=== PATIENT | male | born 1960 | race Caucasian/White ===

== ENCOUNTER 2017-07-11 01:48 | Emergency (ER) | payer OTHER ==
[~2017-07-11] VITALS: Ht 175.3 cm; Wt 93.0 kg
[~2017-07-11 01:48] MED LIST: ALBU90OI6; METCAR500 PO; METO25ER PO; MORPHINE PUMP; OXYC15ER PO; PRAV20 PO; TRAZ150T57 PO; ZESTRIL40 MG PO
[2017-07-11 02:20] LABS: BASOPHILS ABSOLUTE AUTO 0.05 K/mm3 (0.00-0.23); BASOPHILS PERCENT AUTO 1 % (0-2); EOSINOPHILS PERCENT AUTO 3 % (0-6); Hematocrit 43.4 % (37.0-53.0); Hemoglobin 13.7 g/dL (13.5-17.5); IMMATURE GRAN ABSOLUTE AUTO 0.03 K/mm3 (0.00-0.10); IMMATURE GRAN PERCENT AUTO 0 % (0-1); LYMPHOCYTES ABSOLUTE AUTO 1.45 K/mm3 (0.84-5.20); LYMPHOCYTES PERCENT AUTO 19 % (21-46); MONOCYTES ABSOLUTE AUTO 0.49 K/mm3 (0.16-1.47); MONOCYTES PERCENT AUTO 6 % (4-13); Mean Corpuscular HGB 26.9 pg (26.0-34.0); Mean Corpuscular HGB Conc 31.6 g/dL (31.5-36.5); Mean Corpuscular Volume 85 fL (80-100); Mean Platelet Volume 10.3 fL (9.1-12.4); NEUTROPHILS ABSOLUTE AUTO 5.52 K/mm3 (1.96-9.15); NEUTROPHILS PERCENT AUTO 71 % (41-73); Platelet Count 112 K/mm3 (150-400); RDW Coefficient Variation 13.1 % (11.7-14.2); RDW Standard Deviation 41.1 fL (35.1-46.3); White Blood Cell Count 7.74 K/mm3 (4.00-11.30)
[2017-07-11 02:31] LABS: Alanine Aminotransfer (ALT/SGP 15 U/L (12-78); Albumin, Blood 3.2 g/dL (3.4-5.0); Albumin/Globulin Ratio 0.8 (0.8-1.8); Alk Phos 76 U/L (50-136); Anion Gap 5 mmol/L (6-16); Aspartate Aminotrans (AST/SGOT 13 U/L (12-37); Bilirubin, Total 0.4 mg/dL (0.1-1.0); Blood Urea Nitrogen 9 mg/dL (8-24); CO2, Blood 30 mmol/L (21-32); Calcium, Blood 8.4 mg/dL (8.5-10.1); Chloride, Blood 102 mmol/L (98-108); Glomerular Filtration Rate >60 (60-); Glucose, Blood 101 mg/dL (70-99); Potassium, Blood 4.4 mmol/L (3.5-5.5); Sodium, Blood 137 mmol/L (136-145); Total Protein, Blood 7.2 g/dL (6.4-8.2); Troponin I <0.015 ng/mL (0.000-0.040)
[2017-07-11] MEDS ORDERED: AMLO5 PO (02:43)
[2017-07-11] MEDS ORDERED: METO50 PO (02:44)
[2017-07-11] MEDS ORDERED: Carafate1 GM/10 ML PO (03:29)
[2017-07-11] MEDS ORDERED: Protonix40 MG PO (03:29)
== END 2017-07-11 03:42 | disposition home or self-care (01) ==
LOC: ER 01:48
PROVIDERS: Emergency Medicine
DX: K21.9 Gastro-esophageal reflux disease without esophagitis (principal); F17.200 Nicotine dependence, unspecified, uncomplicated; Z88.0 Allergy status to penicillin; Z79.899 Other long term (current) drug therapy
CPT/HCPCS: 36415; 71046; 80053; 83880; 84484; 85025; 93005; 93010; 96374; 99284; J2405

== ENCOUNTER 2017-08-11 21:47 | Emergency (ER) | payer MEDICARE ==
[~2017-08-11] VITALS: Ht 175.3 cm; Wt 102.1 kg
[~2017-08-11 21:47] MED LIST changes: +AMLO5 PO; +Carafate1 GM/10 ML PO; +METO50 PO; +Protonix40 MG PO
[2017-08-11 22:47] LABS: BASOPHILS ABSOLUTE AUTO 0.02 K/mm3 (0.00-0.23); BASOPHILS PERCENT AUTO 0 % (0-2); EOSINOPHILS ABSOLUTE AUTO 0.32 K/mm3 (0.00-0.68); EOSINOPHILS PERCENT AUTO 7 % (0-6); Hematocrit 38.4 % (37.0-53.0); Hemoglobin 11.9 g/dL (13.5-17.5); IMMATURE GRAN ABSOLUTE AUTO 0.01 K/mm3 (0.00-0.10); IMMATURE GRAN PERCENT AUTO 0 % (0-1); LYMPHOCYTES ABSOLUTE AUTO 1.09 K/mm3 (0.84-5.20); LYMPHOCYTES PERCENT AUTO 22 % (21-46); MONOCYTES ABSOLUTE AUTO 0.17 K/mm3 (0.16-1.47); MONOCYTES PERCENT AUTO 4 % (4-13); Mean Corpuscular HGB 25.7 pg (26.0-34.0); Mean Corpuscular Volume 83 fL (80-100); NEUTROPHILS ABSOLUTE AUTO 3.31 K/mm3 (1.96-9.15); NEUTROPHILS PERCENT AUTO 67 % (41-73); Platelet Count 129 K/mm3 (150-400); RDW Coefficient Variation 14.1 % (11.7-14.2); RDW Standard Deviation 41.9 fL (35.1-46.3); Red Blood Cell Count 4.63 M/mm3 (4.30-5.90); White Blood Cell Count 4.92 K/mm3 (4.00-11.30)
[2017-08-11 23:03] LABS: Alanine Aminotransfer (ALT/SGP <6 U/L (12-78); Albumin, Blood 2.8 g/dL (3.4-5.0); Albumin/Globulin Ratio 0.7 (0.8-1.8); Alk Phos 65 U/L (50-136); Anion Gap 5 mmol/L (6-16); Aspartate Aminotrans (AST/SGOT 5 U/L (12-37); Bilirubin, Total 0.8 mg/dL (0.1-1.0); Blood Urea Nitrogen 9 mg/dL (8-24); Bun/Creatinine Ratio 9.3 (12.0-20.0); CO2, Blood 32 mmol/L (21-32); Chloride, Blood 101 mmol/L (98-108); Creatinine, Blood 0.97 mg/dL (0.60-1.20); Globulin, Blood 3.8 g/dL (2.2-4.0); Glomerular Filtration Rate >60 (60-); Glucose, Blood 101 mg/dL (70-99); Potassium, Blood 4.5 mmol/L (3.5-5.5); Sodium, Blood 138 mmol/L (136-145); Total Protein, Blood 6.6 g/dL (6.4-8.2)
[2017-08-11] MEDS ORDERED: METTREX2.5 PO (23:31)
[2017-08-11] MEDS ORDERED: [UNRECOGNIZED DRUG - OTHER] TP (23:31)
[2017-08-12] MEDS ORDERED: Cleocin HCl300 MG PO (02:07)
== END 2017-08-12 02:20 | disposition home or self-care (01) ==
LOC: ER 21:47
PROVIDERS: Emergency Medicine
DX: L40.50 Arthropathic psoriasis, unspecified (principal); L03.116 Cellulitis of left lower limb; L03.115 Cellulitis of right lower limb; Z88.0 Allergy status to penicillin; Z79.899 Other long term (current) drug therapy; Z79.891 Long term (current) use of opiate analgesic; J44.9 Chronic obstructive pulmonary disease, unspecified; F17.200 Nicotine dependence, unspecified, uncomplicated
CPT/HCPCS: 36415; 80053; 83605; 85025; 96365; 96375; 99284; J3010

== ENCOUNTER 2017-08-19 17:45 | Observation (INO) | payer MEDICARE ==
[~2017-08-19] VITALS: Ht 175.3 cm; Wt 96.9 kg
[~2017-08-19 17:45] MED LIST changes: +Cleocin HCl300 MG PO; +METTREX2.5 PO; +[UNRECOGNIZED DRUG - OTHER] TP
[2017-08-19] MEDS ORDERED: Roxicodone15 MG PO (17:59)
[2017-08-19 19:01] LABS: BASOPHILS ABSOLUTE AUTO 0.03 K/mm3 (0.00-0.23); BASOPHILS PERCENT AUTO 1 % (0-2); EOSINOPHILS ABSOLUTE AUTO 0.19 K/mm3 (0.00-0.68); EOSINOPHILS PERCENT AUTO 3 % (0-6); Hematocrit 30.7 % (37.0-53.0); Hemoglobin 9.7 g/dL (13.5-17.5); IMMATURE GRAN ABSOLUTE AUTO 0.02 K/mm3 (0.00-0.10); IMMATURE GRAN PERCENT AUTO 0 % (0-1); LYMPHOCYTES ABSOLUTE AUTO 0.77 K/mm3 (0.84-5.20); LYMPHOCYTES PERCENT AUTO 14 % (21-46); MONOCYTES ABSOLUTE AUTO 0.58 K/mm3 (0.16-1.47); MONOCYTES PERCENT AUTO 10 % (4-13); Mean Corpuscular HGB 25.9 pg (26.0-34.0); Mean Corpuscular HGB Conc 31.6 g/dL (31.5-36.5); Mean Corpuscular Volume 82 fL (80-100); Mean Platelet Volume 10.4 fL (9.1-12.4); NEUTROPHILS ABSOLUTE AUTO 4.07 K/mm3 (1.96-9.15); NEUTROPHILS PERCENT AUTO 72 % (41-73); Platelet Count 169 K/mm3 (150-400); RDW Coefficient Variation 14.9 % (11.7-14.2); RDW Standard Deviation 43.2 fL (35.1-46.3); Red Blood Cell Count 3.75 M/mm3 (4.30-5.90); White Blood Cell Count 5.66 K/mm3 (4.00-11.30)
[2017-08-19 19:21] LABS: Alanine Aminotransfer (ALT/SGP 7 U/L (12-78); Albumin, Blood 2.5 g/dL (3.4-5.0); Albumin/Globulin Ratio 0.6 (0.8-1.8); Alk Phos 74 U/L (50-136); Anion Gap 8 mmol/L (6-16); Aspartate Aminotrans (AST/SGOT 6 U/L (12-37); Bilirubin, Total 1.2 mg/dL (0.1-1.0); Blood Urea Nitrogen 14 mg/dL (8-24); CO2, Blood 26 mmol/L (21-32); Calcium, Blood 8.5 mg/dL (8.5-10.1); Chloride, Blood 102 mmol/L (98-108); Globulin, Blood 3.9 g/dL (2.2-4.0); Glomerular Filtration Rate >60 (60-); Glucose, Blood 107 mg/dL (70-99); Potassium, Blood 4.2 mmol/L (3.5-5.5); Sodium, Blood 136 mmol/L (136-145); Total Protein, Blood 6.4 g/dL (6.4-8.2)
[2017-08-19 20:32] LABS: International Normalized Ratio 1.1; Prothrombin Time Results 11.3 Sec (9.7-11.5)
[2017-08-19 20:47] LABS: CPK Creatine Kinase 30 U/L (39-308)
[2017-08-20 03:38] LABS: Source, Urine Clean Catch
[2017-08-20 03:40] LABS: Blood, Urine Neg (Neg); Glucose Qualitative, Urine Neg (Neg); Ketones, Urine Neg (Neg); Leukocyte Esterase, Urine 1+ (Neg); Nitrite, Urine Neg (Neg); Protein, Urine 1+ (Neg); Urobilinogen, Urine 4+ (Normal)
[2017-08-20 03:46] LABS: Appearance, Urine Clear (Clear); Bilirubin, Urine 1+ (Neg); Color, Urine Amber (P-Yellow)
[2017-08-20 03:47] LABS: Bacteria Not Seen /hpf; Red Blood Cells, Urine Not Seen /hpf (0-2); Squamous Epithelial Cells Few /hpf (Few); White Blood Cells, Urine Rare /hpf (0-5)
[2017-08-20 05:00] LABS: Hematocrit 27.7 % (37.0-53.0); Hemoglobin 8.5 g/dL (13.5-17.5); Mean Corpuscular HGB 24.8 pg (26.0-34.0); Mean Corpuscular HGB Conc 30.7 g/dL (31.5-36.5); Mean Corpuscular Volume 81 fL (80-100); Mean Platelet Volume 10.9 fL (9.1-12.4); Platelet Count 160 K/mm3 (150-400); RDW Standard Deviation 43.1 fL (35.1-46.3); Red Blood Cell Count 3.43 M/mm3 (4.30-5.90); White Blood Cell Count 5.53 K/mm3 (4.00-11.30)
[2017-08-20 05:22] LABS: Alanine Aminotransfer (ALT/SGP <6 U/L (12-78); Albumin, Blood 2.2 g/dL (3.4-5.0); Albumin/Globulin Ratio 0.6 (0.8-1.8); Alk Phos 65 U/L (50-136); Anion Gap 8 mmol/L (6-16); Aspartate Aminotrans (AST/SGOT 5 U/L (12-37); Blood Urea Nitrogen 13 mg/dL (8-24); Bun/Creatinine Ratio 14.4 (12.0-20.0); CO2, Blood 26 mmol/L (21-32); Calcium, Blood 7.8 mg/dL (8.5-10.1); Chloride, Blood 103 mmol/L (98-108); Globulin, Blood 3.4 g/dL (2.2-4.0); Glomerular Filtration Rate >60 (60-); Glucose, Blood 97 mg/dL (70-99); Potassium, Blood 4.4 mmol/L (3.5-5.5); Sodium, Blood 137 mmol/L (136-145); Total Protein, Blood 5.6 g/dL (6.4-8.2)
[2017-08-20 12:45] LABS: U Amphetamine Screen Not Detected; U Barbituate Screen Not Detected; U Benzodiazapine Screen Not Detected; U Buprenorphine Screen Not Detected; U Cannabinoids Screen Not Detected; U Cocaine Screen Not Detected; U Methadone Screen Not Detected; U Methamphetamine Screen Not Detected; U Opiates Screen DETECTED; U Oxycodone Screen DETECTED; U Phencyclidine Screen Not Detected; U Propoxyphene Screen Not Detected
[2017-08-21 20:54] LABS: BASOPHILS ABSOLUTE AUTO 0.02 K/mm3 (0.00-0.23); BASOPHILS PERCENT AUTO 0 % (0-2); EOSINOPHILS ABSOLUTE AUTO 0.22 K/mm3 (0.00-0.68); EOSINOPHILS PERCENT AUTO 4 % (0-6); Hematocrit 25.8 % (37.0-53.0); IMMATURE GRAN ABSOLUTE AUTO 0.03 K/mm3 (0.00-0.10); IMMATURE GRAN PERCENT AUTO 1 % (0-1); LYMPHOCYTES PERCENT AUTO 18 % (21-46); MONOCYTES ABSOLUTE AUTO 0.48 K/mm3 (0.16-1.47); MONOCYTES PERCENT AUTO 10 % (4-13); Mean Corpuscular HGB 25.6 pg (26.0-34.0); Mean Corpuscular Volume 83 fL (80-100); Mean Platelet Volume 10.8 fL (9.1-12.4); NEUTROPHILS ABSOLUTE AUTO 3.32 K/mm3 (1.96-9.15); NEUTROPHILS PERCENT AUTO 67 % (41-73); Platelet Count 167 K/mm3 (150-400); RDW Coefficient Variation 15.3 % (11.7-14.2); RDW Standard Deviation 44.6 fL (35.1-46.3); Red Blood Cell Count 3.12 M/mm3 (4.30-5.90); White Blood Cell Count 4.97 K/mm3 (4.00-11.30)
[2017-08-22 05:32] LABS: BASOPHILS ABSOLUTE AUTO 0.02 K/mm3 (0.00-0.23); BASOPHILS PERCENT AUTO 0 % (0-2); EOSINOPHILS ABSOLUTE AUTO 0.26 K/mm3 (0.00-0.68); EOSINOPHILS PERCENT AUTO 5 % (0-6); Hemoglobin 7.7 g/dL (13.5-17.5); IMMATURE GRAN ABSOLUTE AUTO 0.02 K/mm3 (0.00-0.10); IMMATURE GRAN PERCENT AUTO 0 % (0-1); LYMPHOCYTES ABSOLUTE AUTO 1.07 K/mm3 (0.84-5.20); LYMPHOCYTES PERCENT AUTO 21 % (21-46); MONOCYTES ABSOLUTE AUTO 0.56 K/mm3 (0.16-1.47); MONOCYTES PERCENT AUTO 11 % (4-13); Mean Corpuscular HGB 25.7 pg (26.0-34.0); Mean Corpuscular HGB Conc 30.8 g/dL (31.5-36.5); Mean Corpuscular Volume 83 fL (80-100); Mean Platelet Volume 10.8 fL (9.1-12.4); NEUTROPHILS ABSOLUTE AUTO 3.13 K/mm3 (1.96-9.15); NEUTROPHILS PERCENT AUTO 62 % (41-73); Platelet Count 164 K/mm3 (150-400); RDW Coefficient Variation 15.2 % (11.7-14.2); RDW Standard Deviation 44.9 fL (35.1-46.3); White Blood Cell Count 5.06 K/mm3 (4.00-11.30)
[2017-08-22] MEDS ORDERED: VASELINE WHITE P5 GM TOP (11:26)
[2017-08-23 11:06] LABS: COMPLEMENT C3, SERUM 149 mg/dL (82-167); COMPLEMENT C4, SERUM 28 mg/dL (14-44)
== END 2017-08-22 13:28 | disposition home or self-care (01) ==
LOC: ER 17:45 → MEDS 20:13 → ER 20:13 → MEDS 21:37 → ENPENDDIS 08-22 10:24 → MEDS 08-22 13:28
PROVIDERS: Emergency Medicine; Internal Medicine
DX: I77.6 Arteritis, unspecified (principal); L03.116 Cellulitis of left lower limb; L03.115 Cellulitis of right lower limb; L40.50 Arthropathic psoriasis, unspecified; I10 Essential (primary) hypertension; J44.9 Chronic obstructive pulmonary disease, unspecified; F17.210 Nicotine dependence, cigarettes, uncomplicated; M79.604 Pain in right leg; M79.605 Pain in left leg; Z79.899 Other long term (current) drug therapy; Z88.0 Allergy status to penicillin
CPT/HCPCS: 36415; 73562-RT; 73701; 80053; 81001; 82550; 83605; 84145; 85025; 85027; 85610; 85651; 86141; 86160; 86162; 88305; 93970; 94640; 94760; 96361; 96365; 96366; 96375; 96376; 99285-25; G0378; J0690; J1885; J1940; J3010; J3370; J7030; J7050; Q9967

== ENCOUNTER 2018-05-11 19:43 | Inpatient (IN) | payer MEDICARE ==
[~2018-05-11] VITALS: Ht 175.3 cm; Wt 96.8 kg
[~2018-05-11 19:43] MED LIST changes: -ALBU90OI6; +ALBU90OI6 INH; +Roxicodone15 MG PO; +VASELINE WHITE P5 GM TOP
[2018-05-11 20:19] LABS: BASOPHILS ABSOLUTE AUTO 0.04 K/mm3 (0.00-0.23); BASOPHILS PERCENT AUTO 1 % (0-2); EOSINOPHILS ABSOLUTE AUTO 0.17 K/mm3 (0.00-0.68); EOSINOPHILS PERCENT AUTO 2 % (0-6); Hemoglobin 10.2 g/dL (13.5-17.5); IMMATURE GRAN PERCENT AUTO 1 % (0-1); LYMPHOCYTES ABSOLUTE AUTO 1.22 K/mm3 (0.84-5.20); LYMPHOCYTES PERCENT AUTO 16 % (21-46); MONOCYTES ABSOLUTE AUTO 0.55 K/mm3 (0.16-1.47); MONOCYTES PERCENT AUTO 7 % (4-13); Mean Corpuscular HGB 22.4 pg (26.0-34.0); Mean Corpuscular HGB Conc 28.3 g/dL (31.5-36.5); Mean Corpuscular Volume 79 fL (80-100); Mean Platelet Volume 9.8 fL (9.1-12.4); NEUTROPHILS ABSOLUTE AUTO 5.66 K/mm3 (1.96-9.15); NEUTROPHILS PERCENT AUTO 73 % (41-73); Platelet Count 141 K/mm3 (150-400); RDW Coefficient Variation 19.8 % (11.7-14.2); RDW Standard Deviation 56.7 fL (35.1-46.3); Red Blood Cell Count 4.56 M/mm3 (4.30-5.90); White Blood Cell Count 7.74 K/mm3 (4.00-11.30)
[2018-05-11 20:32] LABS: Alanine Aminotransfer (ALT/SGP 7 U/L (12-78); Albumin, Blood 2.6 g/dL (3.4-5.0); Albumin/Globulin Ratio 0.6 (0.8-1.8); Alk Phos 100 U/L (50-136); Anion Gap 7 mmol/L (6-16); Aspartate Aminotrans (AST/SGOT 9 U/L (12-37); Bilirubin, Total 0.7 mg/dL (0.1-1.0); Blood Urea Nitrogen 16 mg/dL (8-24); Bun/Creatinine Ratio 6.8 (12.0-20.0); CO2, Blood 31 mmol/L (21-32); Chloride, Blood 103 mmol/L (98-108); Creatinine, Blood 2.37 mg/dL (0.60-1.20); Globulin, Blood 4.7 g/dL (2.2-4.0); Glomerular Filtration Rate 30 (60-); Glucose, Blood 112 mg/dL (70-99); Potassium, Blood 3.1 mmol/L (3.5-5.5); Sodium, Blood 141 mmol/L (136-145); Total Protein, Blood 7.3 g/dL (6.4-8.2); Troponin I <0.015 ng/mL (0.000-0.040)
[2018-05-11] MEDS ORDERED: Clobetasol Emol15 GM TOP (22:19)
[2018-05-11] MEDS ORDERED: Hydrocortiso453.6 G1 TOP (22:20)
[2018-05-11] MEDS ORDERED: ANORO ELLIPTA1 EACH INH (22:21)
[2018-05-11] MEDS ORDERED: AMLO5 PO (22:24)
[2018-05-11 23:37] LABS: Source, Urine Voided
[2018-05-11 23:39] LABS: Bilirubin, Urine Neg (Neg); Blood, Urine 5+ (Neg); Glucose Qualitative, Urine Neg (Neg); Ketones, Urine Neg (Neg); Leukocyte Esterase, Urine 1+ (Neg); Nitrite, Urine Neg (Neg); Protein, Urine 4+ (Neg); Urobilinogen, Urine 1+ (Normal)
[2018-05-11 23:43] LABS: Appearance, Urine Hazy (Clear); Color, Urine Amber (P-Yellow)
[2018-05-11 23:50] LABS: Bacteria Rare /hpf; Red Blood Cells, Urine TNTC /hpf (0-2); Squamous Epithelial Cells Not Seen /hpf (Few)
[2018-05-11 23:54] LABS: PCO2 Arterial 55.4 mmHg (35-45); PO2 Arterial 60.3 mmHg (80-100); pH Blood Arterial 7.36 (7.35-7.45)
--- NOTE | 2018-05-12 02:14 | NUR ---
ASSUMED CARE OF PATIENT AT APPROXIMATELY 0110 FROM ED DEVENDRA Lind PATIENT ARRIVED TO UNIT VIA STRETCHER; TRANSFER VIA SLIDE SHEET AND FOUR STAFF FROM ED TO PCU STRETCHER DUE TO PATIENT'S DYSPNEA. PATIENT ALERT AND ORIENTED X4. PATIENT DENIES PAIN, NUMBNESS, TINGLING, DIZZINESS AND NAUSEA. PATIENT HAS PAIN PUMP TO LOWER LEFT ABDOMEN FOR CHRONIC LOWER BACK PAIN. RASH NOTED AROUND PAIN PUMP AND LOWER ABDOMEN; PHOTO TAKEN, PLACED IN CHART WITH PHOTO CONSENT. ADMISSION COMPLETE; SCD'S PLACED. NSR ON TELE; OXYEGN SATURATION ABOVE 90% ON 8LPM VIA VENTURI MASK; PATIENT REPORTS HE CANNOT USE NC UNTIL HE HAS SURGERY TO REPAIR DEVIATED SEPTUM. PATIENT REPORTS HE IS UNBLE TO DO RESPIRATORY PANEL SWAB. PATIENT AWARE SPUTUM SAMPLE NEEDED. PATIENT DESATS TO LOW 80'S WHEN HE REMOVES MASK TO COUGH UP SPUTUM; THICK YELLOW SPUTUM PRODUCED. PATIENT REPORTS HE HAD AORTIC STENT PLACED IN JANUARY. PATIENT HAS SCABS AND RED SKIN ON BLE; REPORTS CHRONIC CONDITION. PATIENT HAS INHALER IN ROOM; EDUCATED PATIENT NOT TO USE INHALER; CALL FOR REPIRATORY CARE TO GIVE TREATMENTS. PATIENT CURRENTLY SLEEPING IN BED; CALL LIGHT IN REACH; BED IN LOWEST POSISTION; BED ALARM ON; WILL CONTINUE TO MONITOR AND ASSESS UNTIL END OF SHIFT.
[2018-05-12 02:22] LABS: BASOPHILS ABSOLUTE AUTO 0.03 K/mm3 (0.00-0.23); BASOPHILS PERCENT AUTO 0 % (0-2); EOSINOPHILS PERCENT AUTO 1 % (0-6); Hematocrit 35.1 % (37.0-53.0); Hemoglobin 9.8 g/dL (13.5-17.5); IMMATURE GRAN ABSOLUTE AUTO 0.12 K/mm3 (0.00-0.10); IMMATURE GRAN PERCENT AUTO 2 % (0-1); LYMPHOCYTES ABSOLUTE AUTO 1.12 K/mm3 (0.84-5.20); LYMPHOCYTES PERCENT AUTO 15 % (21-46); MONOCYTES ABSOLUTE AUTO 0.46 K/mm3 (0.16-1.47); MONOCYTES PERCENT AUTO 6 % (4-13); Mean Corpuscular HGB 21.6 pg (26.0-34.0); Mean Corpuscular HGB Conc 27.9 g/dL (31.5-36.5); Mean Corpuscular Volume 78 fL (80-100); Mean Platelet Volume 9.2 fL (9.1-12.4); NEUTROPHILS ABSOLUTE AUTO 5.47 K/mm3 (1.96-9.15); NEUTROPHILS PERCENT AUTO 75 % (41-73); Platelet Count 100 K/mm3 (150-400); RDW Coefficient Variation 19.5 % (11.7-14.2); RDW Standard Deviation 54.4 fL (35.1-46.3); Red Blood Cell Count 4.53 M/mm3 (4.30-5.90)
[2018-05-12 02:36] LABS: Bun/Creatinine Ratio 6.3 (12.0-20.0); Calcium, Blood 7.6 mg/dL (8.5-10.1); Creatinine, Blood 2.23 mg/dL (0.60-1.20); Potassium, Blood 3.1 mmol/L (3.5-5.5)
--- NOTE | 2018-05-12 06:06 | NUR ---
NO ACUTE CHANGES TO REPORT. SPUTUM SENT. WILL CONTINUE TO MONITOR AND ASSESS UNTIL END OF SHIFT.
[2018-05-12 12:31] LABS: Adenovirus Not Detected (NOT DETECT); Bordetella pertussis Not Detected (NOT DETECT); Chlamydophila pneumoniae Not Detected (NOT DETECT); Coronavirus 229E Not Detected (NOT DETECT); Coronavirus HKU1 Not Detected (NOT DETECT); Coronavirus NL63 Detected (NOT DETECT); Coronavirus OC43 Not Detected (NOT DETECT); Human Metapneumovirus Not Detected (NOT DETECT); Human Rhinovirus/Enterovirus Not Detected (NOT DETECT); Influenza A Not Detected (NOT DETECT); Influenza A/2009-H1 Not Detected (NOT DETECT); Influenza A/H1 Not Detected (NOT DETECT); Influenza A/H3 Not Detected (NOT DETECT); Influenza B Not Detected (NOT DETECT); Mycoplasma pneumoniae Not Detected (NOT DETECT); Parainfluenza Virus 1 Not Detected (NOT DETECT); Parainfluenza Virus 2 Not Detected (NOT DETECT); Parainfluenza Virus 3 Not Detected (NOT DETECT); Parainfluenza Virus 4 Not Detected (NOT DETECT); Respiratory Syncytial Virus Not Detected (NOT DETECT)
--- NOTE | 2018-05-12 15:14 | NUR ---
Advance directive education/spiritual care visit conducted. I provided advance directive education patient said he understood the process and importance and would complete the forms with his health youth care professional. Spiritual care with patient was difficult in that patient is angry with God and feels that He has abandoned him. I facilitated a life review, explored his belief system, I aided in unpacking his feelings toward God, I offered pastoral addiction counselor, and provided prayer. Patient was some what recieptive to interventions and showed signs of reduced frustration.
--- NOTE | 2018-05-12 15:34 | NUR ---
ASSUMED CARE OF PT AT APPROX 0730. PT ON VENTURI MASK AT 8L AT THAT TIME. PT HTN BUT OTHERWISE VSS. PT WITH FLAT AFFECT, DEFENSIVE, AND IRRITABLE. SEE SHIFT ASSESSMENT FOR DETAILED MORNING ASSESSMENT. PT CONSUMED ALL OF BREAKFAST. DR BEASLEY IN THIS AM WITH PT GIVING PLAN OF CARE. DR LEMUS CONSULTED FOR EVALUATION THIS AFTERNOON D/T RENAL LABS. ECHO AND RENAL U/S COMPLETED THIS AM. RESULTS FROM RENAL HAVE COME BACK, STILL AWAITING RESULTS FROM ECHO (CURRENTLY 1600) AT 1100, ARNULFO, RT, TITRATED PT DOWN TO RA WITH O2 SATS ABOVE 90%. PT RESTING COMFORTABLY IN CHAIR AT THAT TIME. PT CONSUMED ALL OF LUNCH. PT VISITING WITH FRIEND, MOOD AND AFFECT IMPROVED WHILE WITH FRIEND. PT RECIEVED MEDICATION EDUCATION, THIS NURSE RECIEVED PERMISSION BY PT TO GIVE MEDICATIONS. THIS NURSE EXPLAINED TO PT EACH MEDICATION, THE ACTION OF EACH MEDICATION, AND THE INDICATION FOR EACH MEDICATION. PT VERBALIZED APPRECIATION TO THIS NURSE FOR THE EDUCATION. VS REMAINED STABLE WITH CONTINUED HTN. NSR THIS SHIFT. AT 1445 PT EXPRESSED FRUSTRATION TO THIS RN ABOUT NOT RECIEVING AN UPDATE TO THE PLAN OF CARE FROM DR BEASLEY. PT STATED "I AM GOING TO LEAVE IF I CAN'T SMOKE" AND "THIS HOSPITAL IS HOLDING ME HOSTAGE". THIS RN EXPLAINED TO PT THE RISKS OF SMOKING WITH CURRENT RESPIRATORY FAILURE AND ACUTE KIDNEY INJURY. THIS RN EXPLICITELY TOLD PT THAT HE IS FREE TO LEAVE WHENEVER HE WANTS TO, BUT THAT THIS CONSTITUTES LEAVING AGAINST MEDICAL ADVISE. NOTIFIED DR BEASLEY AT 1515, DR BEASLEY STATES THAT HE IS NOT COMFORTABLE EITHER DISCHARGING OR CHANGING PT STATUS TO MEDICAL D/T KIDNEY LABS AND RECENT RESPIRATORY FAILURE. NOTIFIED KELLIE BECKFORD, NURSING CUTTING MACHINE FIXER, AND WAS INFORMED THAT PT IS ALLOWED TO LEAVE TO SMOKE LONG HE DOES NOT LEAVE HOSPITAL CAMPUS. PT SIGNED RELEASE OF RESPONSIBLITY FOR KNOWN RISKS OF LEAVING THE UNIT AGAINST ADVISE AT 1546 AND IS NOW SMOKING OUTSIDE. PT WAS ASKED TO COME BACK TO THE ROOM IN 20 MINUTES. TELE DISCONNECTED WHILE PT LEAVES UNIT PER POLICY.
[2018-05-12 17:05] LABS: Albumin, Blood 2.3 g/dL (3.4-5.0); Anion Gap 8 mmol/L (6-16); Blood Urea Nitrogen 23 mg/dL (8-24); Bun/Creatinine Ratio 9.7 (12.0-20.0); CO2, Blood 27 mmol/L (21-32); CPK Creatine Kinase 72 U/L (39-308); Calcium, Blood 8.1 mg/dL (8.5-10.1); Chloride, Blood 105 mmol/L (98-108); Creatinine, Blood 2.37 mg/dL (0.60-1.20); Glomerular Filtration Rate 30 (60-); Glucose, Blood 165 mg/dL (70-99); Magnesium, Blood 1.7 mg/dL (1.6-2.4); Potassium, Blood 3.7 mmol/L (3.5-5.5); Sodium, Blood 140 mmol/L (136-145)
--- NOTE | 2018-05-12 17:28 | NUR ---
SHIFT SUMMARY NO ACUTE CHANGES SINCE SHIFT ASSESSMENT THIS MORNING OR SINCE PT RETURNED TO UNIT AFTER GOING OUTSIDE TO SMOKE. VSS. PT STABLE ON RA MAINTAINING O2 SATURATIONS ABOVE 90. NO CHANGES IN MENTATION, NO C/O CHEST PAIN/PRESSURE. NO C/O CALF TENDERNESS, REDNESS, SWELLING. PT APPEARS CALMER AND IS PLEASANT SINCE RETURNING TO PCU 2 FROM SMOKING OUTSIDE.
[2018-05-12 18:44] LABS: Bilirubin, Urine Neg (Neg); Blood, Urine 5+ (Neg); Glucose Qualitative, Urine Neg (Neg); Ketones, Urine Neg (Neg); Leukocyte Esterase, Urine 2+ (Neg); Nitrite, Urine Pos (Neg); Protein, Urine 4+ (Neg); Specific Gravity, Urine 1.015 (1.003-1.022); Urobilinogen, Urine NORM (Normal)
[2018-05-12 18:58] LABS: Appearance, Urine Turbid (Clear); Color, Urine Amber (P-Yellow)
[2018-05-12 19:06] LABS: Amorphous Heavy (0-Heavy); Bacteria Rare /hpf; Mucus Heavy (0-Heavy); Red Blood Cells, Urine TNTC /hpf (0-2); Squamous Epithelial Cells Mod /hpf (Few)
--- NOTE | 2018-05-12 20:29 | NUR ---
PM NOTE. ASSUMED CARE OF PT APROX 1900, PT IS A&Ox4 AND IND IN THE ROOM. PT WAS ADMITTED FOR RESP FAILURE AND SHAHNAZ, PT'S RESP STATUS HAS IMPROVED AND PT IS ON RA. TELE INTACT, NSR IN THE 70'S PT'S BP 157/77, PT HAS SLIGHT GENERALIZED EDEMA AND TRACE/-1+ EDEMA TO HIS BLLE. PT'S L/S ARE DIM T/O. BT PRESENT AND HYPERACTIVE, ABD IS SOFT AND NONTENDER TO PALP. CALL LIGHT IN REACH, BED IS LOCKED AND LOW WILL CONTINUE TO MONITOR.
[2018-05-13 05:59] LABS: BASOPHILS ABSOLUTE AUTO 0.01 K/mm3 (0.00-0.23); BASOPHILS PERCENT AUTO 0 % (0-2); EOSINOPHILS PERCENT AUTO 0 % (0-6); Hematocrit 33.3 % (37.0-53.0); Hemoglobin 9.7 g/dL (13.5-17.5); IMMATURE GRAN ABSOLUTE AUTO 0.18 K/mm3 (0.00-0.10); IMMATURE GRAN PERCENT AUTO 3 % (0-1); LYMPHOCYTES ABSOLUTE AUTO 0.58 K/mm3 (0.84-5.20); LYMPHOCYTES PERCENT AUTO 10 % (21-46); MONOCYTES ABSOLUTE AUTO 0.11 K/mm3 (0.16-1.47); MONOCYTES PERCENT AUTO 2 % (4-13); Mean Corpuscular HGB 22.2 pg (26.0-34.0); Mean Corpuscular HGB Conc 29.1 g/dL (31.5-36.5); Mean Corpuscular Volume 76 fL (80-100); Mean Platelet Volume 9.4 fL (9.1-12.4); NEUTROPHILS ABSOLUTE AUTO 4.98 K/mm3 (1.96-9.15); NEUTROPHILS PERCENT AUTO 85 % (41-73); Platelet Count 107 K/mm3 (150-400); RDW Coefficient Variation 19.8 % (11.7-14.2); RDW Standard Deviation 54.3 fL (35.1-46.3); Red Blood Cell Count 4.37 M/mm3 (4.30-5.90); White Blood Cell Count 5.86 K/mm3 (4.00-11.30)
[2018-05-13 06:09] LABS: Bun/Creatinine Ratio 11.2 (12.0-20.0); Calcium, Blood 7.7 mg/dL (8.5-10.1); Creatinine, Blood 2.68 mg/dL (0.60-1.20); Potassium, Blood 3.9 mmol/L (3.5-5.5)
--- NOTE | 2018-05-13 07:36 | NUR ---
SHIFT SUMMARY. NO ACUTE CHANGES NOTED THIS SHIFT. 24 HOUR URINE COLLECTION WAS STARTED 05/13 AT 0115. PT HAS BEEN HYPERTENSIVE AND MEDICATED PER EMAR. PT HAS BEEN LEAVING UNIT SEVERAL TIMES THIS SHIFT TO GO OUTSIDE AND SMOKE, PT IS GONE FOR 1+ HOUR EACH TIME HE LEAVES HIS ROOM. PT IS IND IN THE ROOM AND USES A W/C WHEN HE GOES OUTSIDE. CALL LIGHT IN REACH, BED IS LOCKED AND LOW WILL CONTINUE TO MONITOR UNTIL REPORT IS GIVEN TO ONCOMING RN.
--- NOTE | 2018-05-13 09:00 | NUR ---
ASSUMED CARE PT ALERT AND ORIENTED. VS STABLE. PER REPORT PT HAS BEEN GOING OUTSIDE TO SMOKE VIA WHEELCHAIR. PT EDUCATED ABOUT THE RISKS AND SAFETY ISSUES WITH GOING OUTSIDE BECAUSE WE CANNOT MONITOR HIM WHILE OUTSIDE. O2 SATS HAVE REMAINED ABOVE 90% ON RA. PT DENIES ANY CHEST PAIN OR PRESSURE. 24 HOUR URINE IN PROCESS UNTIL 05/14/18 AT 0115. PT DENIES ANY PAIN. WILL CONTINUE TO MONITOR.
--- NOTE | 2018-05-13 11:45 | NUR ---
REPORT CALLED TO MEDICAL FLOOR NURSE. PT TAKEN UP BY WHEELCHAIR WITH ALL OF HIS BELONGINGS.
--- NOTE | 2018-05-13 18:05 | NUR ---
DISCHARGE SUMMARY SERAFIN ARRIVED FROM PCU THIS AFTERNOON. DENIES PAIN. INDEP IN ROOM. COMPLAINS OF HEARTBURN, RECEIVED PRILOSEC AND TUMS. WHEELS OFF FLOOR FOR SMOKE BREAKS. COMPLETING 24 URINE COLLECTION AT 115AM. TOOK MEDS PRESCRIBED. JOSE
--- NOTE | 2018-05-13 19:41 | NUR ---
05/13/181929 PT CALLED THREE TIMES FOR HYDROCOTISONE CREAM FOR LEGS. RUDE AND IMPATIENT. STATED HE WILL "APPLY IT!"
[2018-05-14 01:33] LABS: Protein, Urine Quantitative 170.9 mg/dL (0.0-11.9)
[2018-05-14 05:54] LABS: Bun/Creatinine Ratio 16.7 (12.0-20.0); Calcium, Blood 8.1 mg/dL (8.5-10.1); Creatinine, Blood 3.18 mg/dL (0.60-1.20); Potassium, Blood 4.9 mmol/L (3.5-5.5)
[2018-05-14 05:58] LABS: Percent Saturation 17.1 % (20.0-50.0)
--- NOTE | 2018-05-14 06:42 | NUR ---
05/14/18 0615 Up in w/c on and off TO go to "cafeteria for a snack". VITALS STABLE. NO COMPLAINTS THIS AM.
[2018-05-14 08:06] LABS: HBSAG SCREEN Negative (Negative); HEP B CORE AB, TOT Negative (Negative); HEP C VIRUS AB 0.1 (0.0-0.9)
[2018-05-14 16:22] LABS: Mean Platelet Volume 9.8 fL (9.1-12.4); Platelet Count 114 K/mm3 (150-400)
[2018-05-14 16:29] LABS: International Normalized Ratio 1.08; Prothrombin Time Results 11.4 Sec (9.7-11.5)
--- NOTE | 2018-05-14 18:38 | NUR ---
PATIENT HAD NO ISSUES THIS SHIFT. LEMUS IN WITH PATIENT. NO COMPLAINTS THIS SHIFT.
--- NOTE | 2018-05-15 04:40 | NUR ---
PT SLEPT IN WHEELCHAIR ALL EVENING IN BETWEEN NUMEROUS TRIPS BY SELF VIA WHEELCHAIR TO GO OUTSIDE SMOKE (PT HAS SIGNED WAIVER FORM IN CHART ALLOWING HIM GO OUTSIDE SMOKE). PT ABLE WHEEL SELF WITHOUT ISSUE. PTS DENIES PAIN OR NAUSEA, CALL LIGHT AT SIDE.
[2018-05-15 05:06] LABS: BASOPHILS ABSOLUTE AUTO 0.02 K/mm3 (0.00-0.23); BASOPHILS PERCENT AUTO 0 % (0-2); EOSINOPHILS PERCENT AUTO 0 % (0-6); Hematocrit 32.1 % (37.0-53.0); Hemoglobin 9.2 g/dL (13.5-17.5); IMMATURE GRAN ABSOLUTE AUTO 0.52 K/mm3 (0.00-0.10); IMMATURE GRAN PERCENT AUTO 6 % (0-1); LYMPHOCYTES ABSOLUTE AUTO 0.86 K/mm3 (0.84-5.20); LYMPHOCYTES PERCENT AUTO 10 % (21-46); MONOCYTES ABSOLUTE AUTO 0.74 K/mm3 (0.16-1.47); MONOCYTES PERCENT AUTO 9 % (4-13); Mean Corpuscular HGB 22.3 pg (26.0-34.0); Mean Corpuscular HGB Conc 28.7 g/dL (31.5-36.5); Mean Corpuscular Volume 78 fL (80-100); Mean Platelet Volume 9.7 fL (9.1-12.4); NEUTROPHILS ABSOLUTE AUTO 6.35 K/mm3 (1.96-9.15); NEUTROPHILS PERCENT AUTO 75 % (41-73); Platelet Count 93 K/mm3 (150-400); RDW Coefficient Variation 20.9 % (11.7-14.2); RDW Standard Deviation 57.1 fL (35.1-46.3); Red Blood Cell Count 4.13 M/mm3 (4.30-5.90); White Blood Cell Count 8.49 K/mm3 (4.00-11.30)
[2018-05-15 05:15] LABS: International Normalized Ratio 1.06; Prothrombin Time Results 11.2 Sec (9.7-11.5)
[2018-05-15 05:36] LABS: Bun/Creatinine Ratio 19.7 (12.0-20.0); Calcium, Blood 8.1 mg/dL (8.5-10.1); Creatinine, Blood 3.14 mg/dL (0.60-1.20); Potassium, Blood 5.3 mmol/L (3.5-5.5)
[2018-05-15 05:37] LABS: BASOPHILS PERCENT MAN 0 % (0-2); EOSINOPHILS PERCENT MAN 0 % (0-6); LYMPHOCYTES ABSOLUTE MAN 1.44 K/mm3 (0.84-5.20); LYMPHOCYTES PERCENT MAN 17 % (21-46); METAMYELOCYTE ABSOLUTE MAN 0.08 K/mm3 (0.00-0.00); METAMYELOCYTE PERCENT MAN 1 % (0-0); MONOCYTES PERCENT MAN 6 % (4-13); NEUTROPHILS ABSOLUTE MAN 6.45 K/mm3 (1.96-9.15); SEG NEUTROPHILS PERCENT MAN 76 % (41-73); TOTAL CELLS COUNTED 100
--- NOTE | 2018-05-15 18:31 | NUR ---
HE DID NOT HAVE HIS RENAL BX TODAY BECAUSE HE SAID HE WAS TOO SOB TO LAY ON HIS STOMACH. IT WILL BE RESCHEDULED FOR TOMORROW WITH PRE-MEDICATION. HE SITS UP IN THE CHAIR ALL DAY. HE NOW HAS A RECLINER IN HIS ROOM BUT HAS NOT PUT HIS LEGS UP. HE HAS GONE OUTSIDE TO SMOKE X3 TODAY, EACH TIME BEING GONE 20 TO 30 MINUTES. PAS ON BILAT. DRESSINGS CHANGED ON BOTH IV SITES TODAY.
--- NOTE | 2018-05-16 06:20 | NUR ---
SHIFT SUMMARY REPORTS HE SLEPT "A LITTLE" LAST NIGHT. AOX4. VSS. DENIES PAIN OR NAUSEA. REPORTS "A LITTLE" SOB @REST, HOWEVER SPO2 >90% ON RA & BREATHING APPEARS E/U, BREATHING TX GIVEN PER RT PER ORDERS. PT SLEPT IN RECLINER LAST NIGHT. INDEPENDANT IN ROOM & WHEELS SELF OUTSIDE IN WHEELCHAIR TO SMOKE. THIS AM STATES "I DON'T KNOW IF I AM GOING TO BE ABLE TO DO THIS PROCEDURE TODAY, I JUST WANT IT DONE, BUT IF I CAN'T BREATH I WON'T BE ABLE TO DO IT." CALL LIGHT IN REACH & WILL CONTINUE TO MONITOR.
[2018-05-16 07:15] LABS: ANTIGLOMERULAR BM AB 4 units (0-20)
[2018-05-16 08:03] LABS: Creatinine, Blood 3.05 mg/dL (0.60-1.20); Potassium, Blood 5.2 mmol/L (3.5-5.5)
--- NOTE | 2018-05-16 11:28 | NUR ---
Spiritual care visit attempted. Patient is sitting on a chair and alert when I entered patient's room. I asked patient how he was doing and he stated that he felt like he was in "limbo" waiting for a biopsy that he can't do because he can't breathe when he is laying on his stomach. Patient continues to appear angry. I asked how he was coping with what is happening medically and he answered, "not well and thanking for coming." Which was a clear message that he was done with the visit. I left patient's room.
--- NOTE | 2018-05-16 12:18 | NUR ---
HE HAS RETURNED FROM HIS RENAL BIOPSY. BANDAID ON R FLANK IS MOIST. NO BLOOD. BP IS A LITTLE HIGH. OTHER VS STABLE. HE UNDERSTANDS THE ORDERS SAY TO STAY QUIET IN HIS CHAIR FOR 2 HRS AND NPO FOR NOW. HE IS UNHAPPY BUT COOPERATIVE.
--- NOTE | 2018-05-16 13:16 | NUR ---
I JUST FOUND HIS ROOM EMPTY AND HIS W/C GONE. HE PRESUMABLY HAS GONE OUTSIDE TO SMOKE INSPITE OF MY INSTRUCTIONS TO HIM ABOUT HIS POST BIOPSY ORDERS. LAST VSS.
--- NOTE | 2018-05-16 13:52 | NUR ---
SAW PATIENT WHEN HE RETURNED FROM SMOKING. BANDAID INTACT ON R FLANK. VSS. TRANSPORTER HERE NOW TO TAKE HIM TO CT FOR F/U PICTURES.
[2018-05-16 15:07] LABS: Performing Lab SYMBIIODX; Test Name TISSUE BIOPSY
[2018-05-16] MEDS ORDERED: Ferrous Sulfat325 M2 PO (17:27)
[2018-05-16] MEDS ORDERED: LEVO750 PO (17:28)
[2018-05-16] MEDS ORDERED: HYDR100 PO (17:29)
[2018-05-16] MEDS ORDERED: OMEPRAZOLE20 MG PO (17:30)
--- NOTE | 2018-05-16 17:36 | NUR ---
HE IS WAITING FOR HIS DISCHARGE INSTRUCTIONS. NO BLEEDING AT THE RENAL BIOPSY SITE. NO HEMATOMA. HE HAS GONE OUTSIDE TO SMOKE X2 TODAY. HE IS GLAD TO BE GOING HOME. HE HAS HIS OWN CAR IN THE PARKING LOT. HE HAS NO NEW COMPLAINTS.
--- NOTE | 2018-05-16 17:51 | NUR ---
DISCHARGED TO HOME WITH BELONGINGS AND INSTRUCTIONS. RX'S FAXED TO [facility].
[2018-05-17 14:07] LABS: FINAL INTERPRETATION Negative (.); HIV 1 AB Negative (Negative); HIV 2 AB Negative (Negative)
[2018-05-19 10:08] LABS: ANA DIRECT Positive (Negative); ANTI-CENTROMERE B ANTIBODIES <0.2 AI (0.0-0.9); ANTI-DNA (DS) AB QN 1 IU/mL (0-9); ANTI-JO-1 <0.2 AI (0.0-0.9); ANTICHROMATIN ANTIBODIES 0.2 AI (0.0-0.9); ANTIMYELOPEROXIDASE (MPO) ABS <9.0 U/mL (0.0-9.0); ANTIPROTEINASE 3 (PR-3) ABS <3.5 U/mL (0.0-3.5); ANTIRIBOSOMAL P ANTIBODIES <0.2 AI (0.0-0.9); ANTISCLERODERMA-70 ANTIBODIES <0.2 AI (0.0-0.9); ATYPICAL PANCA <1:20 titer (Neg:<1:20); CYTOPLASMIC (C-ANCA) <1:20 titer (Neg:<1:20); PERINUCLEAR (P-ANCA) <1:20 titer (Neg:<1:20); RNP ANTIBODIES 2.3 AI (0.0-0.9); SJOGREN'S ANTI-SS-A <0.2 AI (0.0-0.9); SJOGREN'S ANTI-SS-B <0.2 AI (0.0-0.9); SMITH ANTIBODIES <0.2 AI (0.0-0.9); SMITH/RNP ANTIBODIES <0.2 AI (0.0-0.9)
[2018-05-19] MEDS ORDERED: PROM25 PO ×2 (13:03→13:35)
[2018-05-19 14:07] LABS: M-SPIKE, % Not Observed % (Not Observed); PROTEIN,TOTAL,URINE 143.1 mg/dL (Not Estab.)
[2018-06-01 15:50] LABS: Result SEE PATHOTH RESULTS
== END 2018-05-16 18:00 | disposition home or self-care (01) | DRG 682 ==
LOC: ER 19:43 → PCU 22:47 → MEDS 05-13 11:43 → ENPENDDIS 05-16 16:51 → MEDS 05-16 18:00
PROVIDERS: Emergency Medicine; Hospitalist; Internal Medicine; ADMIT Family Medicine
PROC: 0TB03ZX Excision of Right Kidney, Percutaneous Approach, Diagnostic (ICD-10-PCS; principal; 2018-05-16)
DX: N17.9 Acute kidney failure, unspecified (principal); J18.9 Pneumonia, unspecified organism; J96.01 Acute respiratory failure with hypoxia; I16.1 Hypertensive emergency; J44.1 Chronic obstructive pulmonary disease with (acute) exacerbation; J44.0 Chronic obstructive pulmonary disease with (acute) lower respiratory infection; R65.10 Systemic inflammatory response syndrome (SIRS) of non-infectious origin without acute organ dysfunction; E87.79 Other fluid overload; E78.5 Hyperlipidemia, unspecified; E86.0 Dehydration; E87.6 Hypokalemia; F17.210 Nicotine dependence, cigarettes, uncomplicated; I13.10 Hypertensive heart and chronic kidney disease without heart failure, with stage 1 through stage 4 chronic kidney disease, or unspecified chronic kidney disease; N18.9 Chronic kidney disease, unspecified; I73.9 Peripheral vascular disease, unspecified; G47.00 Insomnia, unspecified; G89.29 Other chronic pain; M54.9 Dorsalgia, unspecified; D63.1 Anemia in chronic kidney disease; K59.00 Constipation, unspecified; I12.9 Hypertensive chronic kidney disease with stage 1 through stage 4 chronic kidney disease, or unspecified chronic kidney disease
CPT/HCPCS: 36415; 36600; 50200; 71046; 76770; 77012; 80048; 80053; 80069; 81001; 81050; 82550; 82570; 82607; 82728; 82746; 82803; 83036; 83516; 83520; 83540; 83550; 83735; 83880; 84145; 84156; 84166; 84484; 85025; 85049; 85610; 85651; 85730; 86256; 86317; 86701; 86702; 86704; 86708; 86803; 87070; 87077; 87147; 87186; 87205; 87340; 87486; 87581; 87633; 87798; 88329; 93005; 93010; 93306; 94640; 94644; 94760; 96361; 96365; 96375; 99285-25; J0360; J0696; J1650; J1940; J1956; J2060; J2405; J2930; J7030; J7050; J7512

== ENCOUNTER 2018-05-25 14:04 | Inpatient (IN) | payer MEDICARE ==
[~2018-05-25] VITALS: Ht 175.3 cm; Wt 90.4 kg
[~2018-05-25 14:04] MED LIST changes: +ANORO ELLIPTA1 EACH INH; +Clobetasol Emol15 GM TOP; +Ferrous Sulfat325 M2 PO; +HYDR100 PO; +Hydrocortiso453.6 G1 TOP; +LEVO750 PO; +OMEPRAZOLE20 MG PO; +PROM25 PO
[2018-05-25 14:34] LABS: BASOPHILS ABSOLUTE AUTO 0.02 K/mm3 (0.00-0.23); BASOPHILS PERCENT AUTO 0 % (0-2); EOSINOPHILS ABSOLUTE AUTO 0.05 K/mm3 (0.00-0.68); EOSINOPHILS PERCENT AUTO 1 % (0-6); Hematocrit 27.5 % (37.0-53.0); Hemoglobin 8.1 g/dL (13.5-17.5); IMMATURE GRAN PERCENT AUTO 1 % (0-1); LYMPHOCYTES ABSOLUTE AUTO 0.66 K/mm3 (0.84-5.20); LYMPHOCYTES PERCENT AUTO 8 % (21-46); MONOCYTES ABSOLUTE AUTO 0.39 K/mm3 (0.16-1.47); MONOCYTES PERCENT AUTO 5 % (4-13); Mean Corpuscular HGB 22.7 pg (26.0-34.0); Mean Corpuscular HGB Conc 29.5 g/dL (31.5-36.5); Mean Corpuscular Volume 77 fL (80-100); Mean Platelet Volume 9.9 fL (9.1-12.4); NEUTROPHILS ABSOLUTE AUTO 7.34 K/mm3 (1.96-9.15); NEUTROPHILS PERCENT AUTO 86 % (41-73); Platelet Count 62 K/mm3 (150-400); RDW Standard Deviation 61.3 fL (35.1-46.3); Red Blood Cell Count 3.57 M/mm3 (4.30-5.90); White Blood Cell Count 8.56 K/mm3 (4.00-11.30)
[2018-05-25 14:42] LABS: Albumin, Blood 1.8 g/dL (3.4-5.0); Albumin/Globulin Ratio 0.4 (0.8-1.8); Bilirubin, Total 0.9 mg/dL (0.1-1.0); Bun/Creatinine Ratio 9.9 (12.0-20.0); Calcium, Blood 7.9 mg/dL (8.5-10.1); Creatinine, Blood 7.3 mg/dL (0.60-1.20); Globulin, Blood 4.3 g/dL (2.2-4.0); Potassium, Blood 4.4 mmol/L (3.5-5.5); Total Protein, Blood 6.1 g/dL (6.4-8.2)
[2018-05-25] MEDS ORDERED: Zestril40 MG PO (15:21)
[2018-05-25] MEDS ORDERED: OXYC10ER PO (15:29)
[2018-05-25] MEDS ORDERED: LEVO750 PO (15:30)
[2018-05-25] MEDS ORDERED: OXYC5 PO (15:39)
[2018-05-25 16:34] LABS: Magnesium, Blood 2.3 mg/dL (1.6-2.4)
--- NOTE | 2018-05-25 18:51 | NUR ---
PT ARRIVED TO U 2 VIA GURNEY FROM ED. HE IS ORIENTED TO ROOM LAYOUT AND CALL SYSTEM. REPORT TO NIGHT RN.
[2018-05-25 20:38] LABS: Albumin, Blood 1.8 g/dL (3.4-5.0); Anion Gap 10 mmol/L (6-16); Blood Urea Nitrogen 74 mg/dL (8-24); Bun/Creatinine Ratio 10.1 (12.0-20.0); CO2, Blood 23 mmol/L (21-32); Calcium, Blood 7.8 mg/dL (8.5-10.1); Chloride, Blood 106 mmol/L (98-108); Creatinine, Blood 7.33 mg/dL (0.60-1.20); Glomerular Filtration Rate 8 (60-); Glucose, Blood 116 mg/dL (70-99); Phosphorus, Blood 7.5 mg/dL (2.5-4.9); Potassium, Blood 4.6 mmol/L (3.5-5.5); Sodium, Blood 139 mmol/L (136-145)
[2018-05-25 20:39] LABS: CPK Creatine Kinase 53 U/L (39-308)
[2018-05-25 20:40] LABS: Lactate Dehydrogenase (Ld),Bld 191 U/L (100-240)
--- NOTE | 2018-05-26 03:51 | NUR ---
SHIFT SUMMARY: PATIENT STATING THE PAIN IS INCREASING AND THAT FENTANYL HAS NEVER WORKED FOR HIM. PATIENT ALSO FALLS TO SLEEP WITHIN 5 MINUTES OF RECIEVING THE IV FENTANYL. PATIENT REFUSING TURNS D/T PAIN WHEN TOUCHED. VSS, SLEPT WELL, ABLE TO EAT, BED LOW AND LOCKED AND PATIENT USING CALL LIGHT APPROPRIATLY.
[2018-05-26 08:05] LABS: BASOPHILS PERCENT AUTO 0 % (0-2); EOSINOPHILS PERCENT AUTO 0 % (0-6); Hematocrit 24.5 % (37.0-53.0); Hemoglobin 7.2 g/dL (13.5-17.5); IMMATURE GRAN ABSOLUTE AUTO 0.02 K/mm3 (0.00-0.10); IMMATURE GRAN PERCENT AUTO 1 % (0-1); LYMPHOCYTES ABSOLUTE AUTO 0.22 K/mm3 (0.84-5.20); LYMPHOCYTES PERCENT AUTO 5 % (21-46); MONOCYTES ABSOLUTE AUTO 0.03 K/mm3 (0.16-1.47); MONOCYTES PERCENT AUTO 1 % (4-13); Mean Corpuscular HGB 22.9 pg (26.0-34.0); Mean Corpuscular HGB Conc 29.4 g/dL (31.5-36.5); Mean Corpuscular Volume 78 fL (80-100); NEUTROPHILS ABSOLUTE AUTO 3.86 K/mm3 (1.96-9.15); NEUTROPHILS PERCENT AUTO 94 % (41-73); Platelet Count 60 K/mm3 (150-400); RDW Standard Deviation 63.3 fL (35.1-46.3); Red Blood Cell Count 3.15 M/mm3 (4.30-5.90); White Blood Cell Count 4.13 K/mm3 (4.00-11.30)
[2018-05-26 08:41] LABS: Calcium, Blood 7.7 mg/dL (8.5-10.1); Potassium, Blood 5.8 mmol/L (3.5-5.5)
[2018-05-26 08:43] LABS: Bun/Creatinine Ratio 11.1 (12.0-20.0); Creatinine, Blood 8.14 mg/dL (0.60-1.20)
--- NOTE | 2018-05-26 09:40 | NUR ---
Dr. Rivera in to see pt, will move to icu as he needs dialysis port placed. informed pt. report to Nahid RAMSAY. pt transfered via wheelchair to icu 7.
[2018-05-26 10:28] LABS: International Normalized Ratio 1.24; Prothrombin Time Results 12.9 Sec (9.7-11.5)
--- NOTE | 2018-05-26 12:00 | NUR ---
Line was placed, he was medicated with Fentanyl 25 mcg and 2 mg of Versed x2. He tolerated well and cath in LEJ. Gave meds and per MAR. Patient continues to sleep.
--- NOTE | 2018-05-26 13:16 | NUR ---
Recieved report from Cony RAMSAY. Patient was brought over in wheelchair and transfered self to ICU [address] Silver was in to assess patient and get consent for procedure. We set up for Dialysis cath. Placed on 2 L O2 for procedure as he has a hard time breathing laying flat. We Removed IV from right hand as the area on skin looked swollen and hurt when flushed.
--- NOTE | 2018-05-26 14:07 | NUR ---
VSS. Patient continues to rest without complaint. He agapito nues on 4L O2 since procedure and is just starting to awaken slowly. Dialysis is in room getting ready to do a two treatment.
--- NOTE | 2018-05-26 17:14 | NUR ---
FIRST RUN HEMODIALYSIS TODAY. NEW L IJ TEMP CVC IN PLACE AND VERIFIED BY XRAY. HEPATITIS STATUS ON CHART FROM 05/13/18 : SAG : NEG SAB : <10 ONE UNIT PRBC ADMINISTERED WITH DIALYSIS FOR HGB : 7.2
--- NOTE | 2018-05-26 17:20 | NUR ---
Patient finished dialysis and recieved 1 unit PRBC during treatment. He is sitting up in bed eating his second meal and states like he feel like a new man. VS stable. Now that patient is completley awake he is on RA and sats 93 %. Patient will recieve dialysis tomorrow
--- NOTE | 2018-05-26 18:18 | NUR ---
ASSUMED CARE OF PT AT 1800. REPORT RECEIVED AT BEDSIDE. PT PRESENTS IN BED. ALERT AND ORIENTED. PT ACKNOWLEDGES THAT HE WILL PROBABLY BE MOVED TO THE PCU UNIT TONIGHT. DOES STATE THAT HE IS WANTING TO GO SMOKE LATER. IS WILLING TO SIGN RELEASE FOR AGAINST MEDICAL ADVICE. PT HAS HAD DIALYSIS TODAY FOR THE FIRST TIME. LABS DRAWN. PENDING RESULTS. WILL REVIEW CHART AND PLAN OF CARE FOR THIS PT.
[2018-05-26 18:34] LABS: Bun/Creatinine Ratio 11.4 (12.0-20.0); Calcium, Blood 7.7 mg/dL (8.5-10.1); Creatinine, Blood 6.05 mg/dL (0.60-1.20); Potassium, Blood 4.9 mmol/L (3.5-5.5)
[2018-05-26 20:19] LABS: Source, Urine Clean Catch
[2018-05-26 20:30] LABS: Appearance, Urine Hazy (Clear); Bilirubin, Urine Neg (Neg); Blood, Urine 5+ (Neg); Color, Urine Yellow (P-Yellow); Glucose Qualitative, Urine Neg (Neg); Ketones, Urine Neg (Neg); Leukocyte Esterase, Urine 3+ (Neg); Nitrite, Urine Neg (Neg); Protein, Urine 3+ (Neg); Specific Gravity, Urine 1.015 (1.003-1.022); Urobilinogen, Urine NORM (Normal)
[2018-05-26 20:38] LABS: White Blood Cells, Urine 50-100 /hpf (0-5)
[2018-05-26 20:39] LABS: Bacteria Many /hpf; Red Blood Cells, Urine TNTC /hpf (0-2); Squamous Epithelial Cells Few /hpf (Few); Yeast/Fungi Urine Few /hpf
[2018-05-26 20:40] LABS: WBC Cast 0-2 /lpf ({null, 0})
--- NOTE | 2018-05-26 21:06 | NUR ---
PT SIGNS INFORMED RELEASE OF RESPONSIBILITY FORM TO GO OUTSIDE TO SMOKE. EDUCATED PT ON RISKS AND HE HAS VOICED UNDERSTANDING. PT AT THIS TIME HAS JUST LEFT THE UNIT WITHOUT TELE MONITORING. PT STATES HE WILL INFORM STAFF WHEN HE RETURNS. CALL MADE TO PCU TO INFORM OF PT OFF MONITOR.
--- NOTE | 2018-05-26 22:00 | NUR ---
SPOKE WITH DR HANKINS ON TELEPHONE CONCERNING PT'S STATUS. ORDER RECEIVED FOR PT TO BE A MED WITH TELE PT. PT CURRENTLY OUTSIDE SMOKING. WILL INFORM PT WHEN HE RETURNS. CHARGE NURSE NOTIFIED.
--- NOTE | 2018-05-26 23:16 | NUR ---
PT RETURNS TO HIS ROOM FROM OUTSIDE WHERE HE WENT TO SMOKE. HS MEDS GIVEN. PT INFORMS THIS RN THAT HE TAKES ONLY 50 MG METOPROLOL BID INSTEAD OF CHARTED 100MG. OPTED TO GIVE PT ONLY 50 MG METOPROLOL PER HIS HOME ROUTINE. PT REPORT CALLED TO MEDICAL FLOOR. ALLOWED FOR QUESTIONS. REPORT GIVEN IN SBAR FASHION. PT HAS BEEN TRANSFERRED OUT OF UNIT PER W/C IN STABLE CONDITION.
--- NOTE | 2018-05-27 00:16 | NUR ---
ATTACHED TELE MONITOR. PER VOCATIONAL NURSE LVN NSR RATE 87.
[2018-05-27 04:54] LABS: Hematocrit 25.4 % (37.0-53.0); Hemoglobin 7.8 g/dL (13.5-17.5)
[2018-05-27 05:12] LABS: Albumin, Blood 1.9 g/dL (3.4-5.0); Anion Gap 11 mmol/L (6-16); Blood Urea Nitrogen 90 mg/dL (8-24); Bun/Creatinine Ratio 12.6 (12.0-20.0); CO2, Blood 24 mmol/L (21-32); Calcium, Blood 7.7 mg/dL (8.5-10.1); Chloride, Blood 105 mmol/L (98-108); Creatinine, Blood 7.14 mg/dL (0.60-1.20); Glomerular Filtration Rate 8 (60-); Glucose, Blood 171 mg/dL (70-99); Magnesium, Blood 2.4 mg/dL (1.6-2.4); Phosphorus, Blood 7.8 mg/dL (2.5-4.9); Potassium, Blood 5.3 mmol/L (3.5-5.5); Sodium, Blood 140 mmol/L (136-145)
--- NOTE | 2018-05-27 06:16 | NUR ---
NOC SHIFT SUMMARY PT BROUGHT TO MED FLOOR FROM ICU. RECIEVED AT 2315. PT IS COOPERATIVE WITH CARE FOR THE MOST PART. HE DID LEAVE THE FLOOR TO GO SMOKE AGIANST MEDICAL ADVICE. SIGNED FORM IN ICU STATING UNDERSTANDING OF THIS. IT IS IN BINDER. HR HAS BEEN SR PER TELE. HAD DIALYSIS YESTERDAY. VSS. CURRENTLY SLEEPING IN CHAIR. AWAKES EASILY TO VOICE. APPEARS IN NO ACUTE DISTRESS. WILL CONTINUE TO MONITOR.
--- NOTE | 2018-05-27 08:51 | NUR ---
PATIENT INSISTED ON LEAVING THE UNIT TO GO DOWNSTAIRS AND SMOKE. THE NURSE PROVIDED HIM WITH A WHEELCHAIR TO GET THERE MORE SAFELY THAN HIS FWW. PATIENT HAS DIALYSIS SCHEDULED AT 0915, HE WAS NOTIFIED OF THIS AND HE STATED THAT HE WILL BE BACK IN TIME.
--- NOTE | 2018-05-27 09:27 | NUR ---
PT TRANSFERED TO DIALYSIS VIA HOSPITAL BED BY ARGELIA AT 0915
--- NOTE | 2018-05-27 12:06 | NUR ---
Pt tollerated dialysis well. 500 taken off. Nurse aware. vital signs stable. Dressing changed, cath and citrate locked per protocol.
--- NOTE | 2018-05-27 17:14 | NUR ---
PT IS ALERT AND ORIENTED. HE IS COOPERATIVE WITH CARE. PT HAS LEFT THE UNIT TWICE TODAY TO GO OUTSIDE FOR A SMOKE BY WHEELCHAIR. HE SLEEPS IN THE RECLINER IN HIS ROOM JUST HE DOES AT HOME. HE HAD DIALYSIS TODAY AND HAD 500ML OF FLUIDS REMOVED. HE HS A POWERGLIDE IN HIS LEFT UPPER ARM. RIGHT ARM BP ONLY. WILL CONTINUE TO MONITOR
[2018-05-28 04:28] LABS: Hematocrit 25.7 % (37.0-53.0); Hemoglobin 7.7 g/dL (13.5-17.5)
[2018-05-28 04:44] LABS: Albumin, Blood 2.2 g/dL (3.4-5.0); Anion Gap 9 mmol/L (6-16); Blood Urea Nitrogen 78 mg/dL (8-24); Bun/Creatinine Ratio 13.1 (12.0-20.0); CO2, Blood 28 mmol/L (21-32); Calcium, Blood 8.1 mg/dL (8.5-10.1); Chloride, Blood 105 mmol/L (98-108); Creatinine, Blood 5.97 mg/dL (0.60-1.20); Glomerular Filtration Rate 10 (60-); Glucose, Blood 147 mg/dL (70-99); Magnesium, Blood 2.5 mg/dL (1.6-2.4); Phosphorus, Blood 7.3 mg/dL (2.5-4.9); Potassium, Blood 4.8 mmol/L (3.5-5.5); Sodium, Blood 142 mmol/L (136-145)
[2018-05-28 07:06] LABS: COMPLEMENT C3, SERUM 137 mg/dL (82-167); COMPLEMENT C4, SERUM 26 mg/dL (14-44); HAPTOGLOBIN 311 mg/dL (34-200)
--- NOTE | 2018-05-28 07:15 | NUR ---
NOC SHIFT SUMMRY PT HAS BEEN PLEASANT AND COOPERATIVE WITH CARE THIS NIGHT. HE WENT OUT TO SMOKE EARLY IN THE EVENING BUT AFTER RETURNING WENT TO SLEEP IN CHAIR WHERE HE STAYED MOST OF NIGHT. WAS TREATED FOR NAUSEA ONCE WITH ZOFRAN TO GOOD EFFECT. NO ACUTE CHANGES NOTED. APPEARS IN NO ACUTE DISTRESS. REPORT TO ONCOMING RN.
[2018-05-28 09:04] LABS: BASOPHILS PERCENT AUTO 0 % (0-2); EOSINOPHILS PERCENT AUTO 0 % (0-6); Hematocrit 25.7 % (37.0-53.0); Hemoglobin 7.6 g/dL (13.5-17.5); IMMATURE GRAN ABSOLUTE AUTO 0.03 K/mm3 (0.00-0.10); IMMATURE GRAN PERCENT AUTO 1 % (0-1); LYMPHOCYTES ABSOLUTE AUTO 0.22 K/mm3 (0.84-5.20); LYMPHOCYTES PERCENT AUTO 6 % (21-46); MONOCYTES ABSOLUTE AUTO 0.15 K/mm3 (0.16-1.47); MONOCYTES PERCENT AUTO 4 % (4-13); Mean Corpuscular HGB 23.2 pg (26.0-34.0); Mean Corpuscular HGB Conc 29.6 g/dL (31.5-36.5); Mean Corpuscular Volume 78 fL (80-100); Mean Platelet Volume 10.2 fL (9.1-12.4); NEUTROPHILS ABSOLUTE AUTO 3.25 K/mm3 (1.96-9.15); NEUTROPHILS PERCENT AUTO 89 % (41-73); Platelet Count 61 K/mm3 (150-400); RDW Coefficient Variation 20.6 % (11.7-14.2); Red Blood Cell Count 3.28 M/mm3 (4.30-5.90); White Blood Cell Count 3.65 K/mm3 (4.00-11.30)
--- NOTE | 2018-05-28 12:01 | NUR ---
PT IS ALERT AND ORIENTED AND COOPERATIVE WITH CARE. HE HAD DIALYSIS THIS MORNING AND RECIEVED A UNIT OF BLOOD. HE IS AMULATORY FOR SHORT DISTANCES ON HIS OWN BUT PREFERS THE WHEELCHAIR. HE IS IN THE RECLINER NOW EATING LUNCH.
--- NOTE | 2018-05-28 17:50 | NUR ---
PT IS ALERT AND ORIENTED. HE WHEELS HIMSELF IN THE WHEELCHAIR OUTSIDE TO SMOKE. HE IS CALM AND COOPERATIVE. TELE WAS DC'D TODAY. WILL CONTINUE TO MONITOR
--- NOTE | 2018-05-29 01:34 | NUR ---
PT STILL HYPERTENSIVE AFTER GIVING EVENING BP MEDS AND ADDITIONAL HYDRALASINE. KARO PT IS 168/101. CALLED TO DR. DOUGLAS. ORDER TO GIVE 10MG HYDRALAZINE NOW. ALSO CHANGE ADMIN CRITERIA FOR Q6 HYDRALAZINE. NOW TO GIVE FOR SBP >175 OR DBP >110.
[2018-05-29 04:46] LABS: Hematocrit 30.6 % (37.0-53.0); Hemoglobin 9.5 g/dL (13.5-17.5)
[2018-05-29 05:02] LABS: Albumin, Blood 2.3 g/dL (3.4-5.0); Anion Gap 8 mmol/L (6-16); Blood Urea Nitrogen 90 mg/dL (8-24); Bun/Creatinine Ratio 16.2 (12.0-20.0); CO2, Blood 29 mmol/L (21-32); Calcium, Blood 8.2 mg/dL (8.5-10.1); Chloride, Blood 102 mmol/L (98-108); Creatinine, Blood 5.56 mg/dL (0.60-1.20); Glomerular Filtration Rate 11 (60-); Glucose, Blood 139 mg/dL (70-99); Magnesium, Blood 2.4 mg/dL (1.6-2.4); Potassium, Blood 4.7 mmol/L (3.5-5.5); Sodium, Blood 139 mmol/L (136-145)
[2018-05-29 07:24] LABS: BASOPHILS ABSOLUTE AUTO 0.01 K/mm3 (0.00-0.23); BASOPHILS PERCENT AUTO 0 % (0-2); EOSINOPHILS PERCENT AUTO 0 % (0-6); Hematocrit 30.6 % (37.0-53.0); Hemoglobin 9.4 g/dL (13.5-17.5); IMMATURE GRAN ABSOLUTE AUTO 0.12 K/mm3 (0.00-0.10); IMMATURE GRAN PERCENT AUTO 2 % (0-1); LYMPHOCYTES ABSOLUTE AUTO 0.53 K/mm3 (0.84-5.20); LYMPHOCYTES PERCENT AUTO 9 % (21-46); MONOCYTES ABSOLUTE AUTO 0.59 K/mm3 (0.16-1.47); MONOCYTES PERCENT AUTO 10 % (4-13); Mean Corpuscular HGB 23.7 pg (26.0-34.0); Mean Corpuscular HGB Conc 30.7 g/dL (31.5-36.5); Mean Corpuscular Volume 77 fL (80-100); Mean Platelet Volume 10.6 fL (9.1-12.4); NEUTROPHILS ABSOLUTE AUTO 4.59 K/mm3 (1.96-9.15); NEUTROPHILS PERCENT AUTO 79 % (41-73); Platelet Count 74 K/mm3 (150-400); RDW Coefficient Variation 19.6 % (11.7-14.2); RDW Standard Deviation 54.7 fL (35.1-46.3); Red Blood Cell Count 3.97 M/mm3 (4.30-5.90); White Blood Cell Count 5.84 K/mm3 (4.00-11.30)
--- NOTE | 2018-05-29 07:34 | NUR ---
NOC SHIFT SUMMARY PT HAS BEEN PLEASANT AND COOPERATIVE WITH CARE THIS NIGHT. HE DID LEAVE TO GO SMOKE EARLY IN THE EVENING BUT ON RETURING STAYED IN FOR THE NIGHT. PREFERRED TO SLEEP IN HIS WHEELCHAIR. BP HAS BEEN HIGH THROUGH THE NIGHT. GAVE HYDROLAZINE WITH LITTLE IMPROVMENT. CALLED TO HOSPITALIST, HE ORDRED 10MG HYDROLAZINE THIS WAS GIVEN WELL WITH LITTLE IPROVEMENT. CHARGE NURSE AWARE. PT HAD SOME COMPLAINTS OF NAUSEA EARLY IN THE NIGHT TREATED WITH ZOFRAN. PT APPEARS IN NO ACUTE DISTRESS. REPORT TO ONCOMING RN.
--- NOTE | 2018-05-29 11:59 | NUR ---
Patient is sitting on a chair and resting. Patient could lift his head and say a few words but would lower his head and close his eyes every minute or two. Patient stated that he is not doing well and is not feeling any better than when he arrived at the hospital. Since patient appeared to not be strong enough for much of a conversation, I asked patient if at least I could pray for him and he said, "Please do." I provided prayer and patient thanked me for the prayer and visit. I continue to remain available to patient.
--- NOTE | 2018-05-29 17:50 | NUR ---
SHIFT SUMMARY MEDICATED FOR PAIN X1 THIS SHIFT PER EMAR. PLANS FOR PT TO HAVE PERMCATH PLACED TOMORROW MORNING. PT HAD DIALYSIS AND HAS BEEN UP IN WHEELCHAIR MOST OF THE DAY. DR. ADEN ATTEMPTED TO SEE PT THIS EVENING BUT PT WAS NOT IN ROOM AT THE TIME. NO ACUTE CHANGES THIS SHIFT. WILL CONTINUE TO MONITOR AND REPORT TO ONCOMING RN. CALL LIGHT IN REACH.
--- NOTE | 2018-05-30 00:38 | NUR ---
PT MADE NPO AT MD.
--- NOTE | 2018-05-30 05:04 | NUR ---
SUMMARY: A/OX4, SBA IN ROOM AND SPECIFIES NEEDS. HE SPENT THE NIGHT IN HIS W/C AND DIDN'T WANT TO SLEEP IN HIS BED THIS SHIFT. PT DENIED PAIN OR COMPLAINTS AND REQUIRED NO PRN MEDS. ABDO CONT'S DISTENDED/FIRM BUT NONTENDER. HE HAS AN HD CATH TO HIS L.EJ BUT IT HASN'T BEEN WORKING APPROPRIATELY SO PT HAS BEEN NPO SINCE PR FOR PERMACATH PLACEMENT TODAY. PT HAS SL POWERGLIDE TO KIM. HE'S OLIGURIC SO URINE SPECIMEN WAS UNABLE TO BE OBTAINED THIS SHIFT. PETECHIAE AND PURAPURA PERSIST T/O BODY. ARMS AND LEGS REMAIN EDEMATOUS. CX IS STILL PENDING, WILL HAVE DAY RN F/U. NO ACUTE CHANGES, VSS/AFEBRILE. WILL MONITOR AND REPORT TO DAY RN.
[2018-05-30 05:26] LABS: BASOPHILS ABSOLUTE AUTO 0.01 K/mm3 (0.00-0.23); BASOPHILS PERCENT AUTO 0 % (0-2); EOSINOPHILS ABSOLUTE AUTO 0.01 K/mm3 (0.00-0.68); EOSINOPHILS PERCENT AUTO 0 % (0-6); Hematocrit 33.8 % (37.0-53.0); Hemoglobin 10.5 g/dL (13.5-17.5); IMMATURE GRAN ABSOLUTE AUTO 0.14 K/mm3 (0.00-0.10); IMMATURE GRAN PERCENT AUTO 2 % (0-1); LYMPHOCYTES ABSOLUTE AUTO 0.66 K/mm3 (0.84-5.20); LYMPHOCYTES PERCENT AUTO 11 % (21-46); MONOCYTES ABSOLUTE AUTO 0.52 K/mm3 (0.16-1.47); MONOCYTES PERCENT AUTO 9 % (4-13); Mean Corpuscular HGB 24.5 pg (26.0-34.0); Mean Corpuscular HGB Conc 31.1 g/dL (31.5-36.5); Mean Corpuscular Volume 79 fL (80-100); NEUTROPHILS ABSOLUTE AUTO 4.64 K/mm3 (1.96-9.15); NEUTROPHILS PERCENT AUTO 78 % (41-73); Platelet Count 88 K/mm3 (150-400); RDW Coefficient Variation 19.5 % (11.7-14.2); RDW Standard Deviation 55.2 fL (35.1-46.3); Red Blood Cell Count 4.29 M/mm3 (4.30-5.90); White Blood Cell Count 5.98 K/mm3 (4.00-11.30)
[2018-05-30 05:28] LABS: Mean Platelet Volume 10.4 fL (9.1-12.4)
[2018-05-30 05:45] LABS: Albumin, Blood 2.5 g/dL (3.4-5.0); Albumin/Globulin Ratio 0.7 (0.8-1.8); Bilirubin, Total 0.6 mg/dL (0.1-1.0); Bun/Creatinine Ratio 16.7 (12.0-20.0); Calcium, Blood 8.3 mg/dL (8.5-10.1); Creatinine, Blood 5.56 mg/dL (0.60-1.20); Globulin, Blood 3.8 g/dL (2.2-4.0); Potassium, Blood 4.9 mmol/L (3.5-5.5); Total Protein, Blood 6.3 g/dL (6.4-8.2)
[2018-05-30 13:06] LABS: ATYPICAL PANCA <1:20 titer ({null, Neg:<1:20}); CYTOPLASMIC (C-ANCA) <1:20 titer ({null, Neg:<1:20}); PERINUCLEAR (P-ANCA) <1:20 titer ({null, Neg:<1:20})
--- NOTE | 2018-05-30 13:39 | NUR ---
PT PERMISSION PT GAVE PERMISSION FOR WHITTLING ROOM OPERATOR TO PROVIDE CARE ON 05/31/18 FROM [phone].
--- NOTE | 2018-05-30 13:47 | NUR ---
FROM MED FLOOR TO STEP ADMISSION TO UNIT STARTED
--- NOTE | 2018-05-30 14:29 | NUR ---
Surgical site prepped with 2% Chlorhexidine cloth wipe. History, Chart, Medications and Allergies reviewed before start of procedure.Lungs clear T/O to Auscultation. Patient confirms NPO status and agrees with scheduled surgery. UNABLE TO FLUSH POWER GLIDE. DR LEMUS GAVE ORDER THAT IT IS OKAY TO USE PIGTAIL ON DIALYSIS CATHETER IN L SUBSCAVIAN IF NEEDED. STILL ATTEMPTING TO GAIN OTHER ACCESS. TOLERATING PREP TO CHEST AND NECK. DR SUÁREZ AWARE OF MORPHINE PUMP IN [facility].
--- NOTE | 2018-05-31 05:56 | NUR ---
SHIFT SUMMARY PT SLEPT WELL T/O NIGHT. AOX4. DENIES SOB. REPORTED 6/10 PAIN IN NECK/BACK LAST NIGHT & WAS MEDICATED 1X W/ROXICODONE, @ THE SAME TIME PT REPORTED FEELING SLIGHTLY NAUSEOUS & WAS MEDICATED 1X W/ZOFRAN PER ORDERS, PT DENIES ANY FURTHER PAIN OR NAUSEA THIS AM. PT INDEPENDENT IN ROOM, DENIES ANY DIZZINESS W/AMBULATION. CALL LIGHT IS IN REACH & I WILL CONTINUE TO MONITOR PT.
[2018-05-31 06:00] LABS: BASOPHILS PERCENT AUTO 0 % (0-2); EOSINOPHILS PERCENT AUTO 0 % (0-6); Hemoglobin 8.9 g/dL (13.5-17.5); IMMATURE GRAN ABSOLUTE AUTO 0.11 K/mm3 (0.00-0.10); IMMATURE GRAN PERCENT AUTO 2 % (0-1); LYMPHOCYTES ABSOLUTE AUTO 0.38 K/mm3 (0.84-5.20); LYMPHOCYTES PERCENT AUTO 8 % (21-46); MONOCYTES ABSOLUTE AUTO 0.12 K/mm3 (0.16-1.47); MONOCYTES PERCENT AUTO 3 % (4-13); Mean Corpuscular HGB 24.1 pg (26.0-34.0); Mean Corpuscular HGB Conc 30.7 g/dL (31.5-36.5); Mean Corpuscular Volume 78 fL (80-100); Mean Platelet Volume 10.3 fL (9.1-12.4); NEUTROPHILS ABSOLUTE AUTO 3.92 K/mm3 (1.96-9.15); NEUTROPHILS PERCENT AUTO 87 % (41-73); Platelet Count 79 K/mm3 (150-400); RDW Coefficient Variation 19.4 % (11.7-14.2); RDW Standard Deviation 54.6 fL (35.1-46.3); White Blood Cell Count 4.53 K/mm3 (4.00-11.30)
[2018-05-31 06:25] LABS: Albumin, Blood 2.3 g/dL (3.4-5.0); Anion Gap 8 mmol/L (6-16); Blood Urea Nitrogen 110 mg/dL (8-24); Bun/Creatinine Ratio 16.9 (12.0-20.0); CO2, Blood 30 mmol/L (21-32); Calcium, Blood 7.9 mg/dL (8.5-10.1); Chloride, Blood 102 mmol/L (98-108); Creatinine, Blood 6.49 mg/dL (0.60-1.20); Glomerular Filtration Rate 9 (60-); Glucose, Blood 127 mg/dL (70-99); Potassium, Blood 5.5 mmol/L (3.5-5.5); Sodium, Blood 140 mmol/L (136-145)
[2018-05-31 06:54] LABS: Phosphorus, Blood 8.6 mg/dL (2.5-4.9)
--- NOTE | 2018-05-31 08:09 | NUR ---
notified Dr. Barahona of patient pulse regarding Metoprolol and Amplodipine. stated to continue with home med regimen and to make no changes at this time.
[2018-05-31 15:06] LABS: A/G RATIO 0.9 (0.7-1.7); ALBUMIN 2.5 g/dL (2.9-4.4); ALPHA-1-GLOBULIN 0.5 g/dL (0.0-0.4); ALPHA-2-GLOBULIN 0.8 g/dL (0.4-1.0); BETA GLOBULIN 0.8 g/dL (0.7-1.3); GAMMA GLOBULIN 0.9 g/dL (0.4-1.8); GLOBULIN, TOTAL 3.1 g/dL (2.2-3.9); IMMUNOGLOBULIN A, QN, SERUM 327 mg/dL (90-386); IMMUNOGLOBULIN G, QN, SERUM 862 mg/dL (700-1600); IMMUNOGLOBULIN M, QN, SERUM 60 mg/dL (20-172); M-SPIKE Not Observed g/dL (Not Observed); PROTEIN, TOTAL, SERUM 5.6 g/dL (6.0-8.5)
--- NOTE | 2018-05-31 15:17 | NUR ---
Patient states that he is exhausted after dialysis. Patient says that he is not going well today. I asked if I could pray for him before he falls asleep again. Patient said, "Please do." I provided prayer. Patient said a firm "Amen" when I concluded the prayer. Patient thanked me for the visit.
--- NOTE | 2018-05-31 17:20 | NUR ---
SHIFT SUMMARY PATIENT WENT TO DIALYSIS THIS AM. TOLERATED THIS WELL. HE HAS HAD EPISODES OF COUGHING ON WHOLE PILLS WHEN IN WATER. GAVE HIM HIS PILLS ONE AT AT TIME WITH APPLESAUCE, CONTINUED TO COUGH UP PILLS. GAVE THE REST OF THE MEDICATIONS CRUSHED IN APPLESAUCE. NOTIFIED MD OF NEED TO CRUSH MEDS. PATIENT CONTINUED TO COUGH. COUGHED/SPIT UP EGGS IN THE AM. NOTIFIED MD. PLACED ON NPO, OKAY FOR WATER PENDING SPEECH EVAL IN THE AM. PATIENT AWARE AND THANKFUL FOR THIS.
--- NOTE | 2018-06-01 02:48 | NUR ---
* PT NEEDS TO BE AT DIALYSIS AT 0845 06/01/18, AND IN A RECLINER NOT BED.*
--- NOTE | 2018-06-01 02:55 | NUR ---
PCU BEVERAGE MANAGER CALLED STATED PT HAS CONVERTED TO SINUS EVELIN AT RATE 59. PT CURRENTLY SLEEPING.
--- NOTE | 2018-06-01 04:01 | NUR ---
SHIFT SUMMARY PT HAD NO COMPLAINTS THIS SHIFT. PT HAS SLEPT T/O THE NIGHT. NO ISSUES NOTED. PT CURRENTLY SLEEPING IN NO DISTRESS. CALL LIGHT IN REACH.
[2018-06-01 04:59] LABS: BASOPHILS ABSOLUTE AUTO 0.01 K/mm3 (0.00-0.23); BASOPHILS PERCENT AUTO 0 % (0-2); EOSINOPHILS ABSOLUTE AUTO 0.02 K/mm3 (0.00-0.68); EOSINOPHILS PERCENT AUTO 0 % (0-6); Hematocrit 29.8 % (37.0-53.0); Hemoglobin 9.1 g/dL (13.5-17.5); IMMATURE GRAN PERCENT AUTO 2 % (0-1); LYMPHOCYTES ABSOLUTE AUTO 0.89 K/mm3 (0.84-5.20); LYMPHOCYTES PERCENT AUTO 13 % (21-46); MONOCYTES ABSOLUTE AUTO 0.76 K/mm3 (0.16-1.47); MONOCYTES PERCENT AUTO 11 % (4-13); Mean Corpuscular HGB Conc 30.5 g/dL (31.5-36.5); Mean Corpuscular Volume 79 fL (80-100); Mean Platelet Volume 9.5 fL (9.1-12.4); NEUTROPHILS ABSOLUTE AUTO 5.11 K/mm3 (1.96-9.15); NEUTROPHILS PERCENT AUTO 74 % (41-73); Platelet Count 96 K/mm3 (150-400); RDW Coefficient Variation 19.7 % (11.7-14.2); RDW Standard Deviation 55.6 fL (35.1-46.3); Red Blood Cell Count 3.79 M/mm3 (4.30-5.90); White Blood Cell Count 6.89 K/mm3 (4.00-11.30)
[2018-06-01 05:12] LABS: Albumin, Blood 2.4 g/dL (3.4-5.0); Anion Gap 7 mmol/L (6-16); Blood Urea Nitrogen 68 mg/dL (8-24); Bun/Creatinine Ratio 13.9 (12.0-20.0); CO2, Blood 33 mmol/L (21-32); Calcium, Blood 8.2 mg/dL (8.5-10.1); Chloride, Blood 100 mmol/L (98-108); Glomerular Filtration Rate 13 (60-); Glucose, Blood 116 mg/dL (70-99); Phosphorus, Blood 7.9 mg/dL (2.5-4.9); Potassium, Blood 4.3 mmol/L (3.5-5.5); Sodium, Blood 140 mmol/L (136-145)
--- NOTE | 2018-06-01 13:19 | NUR ---
Spiritual care visit conducted. Patient is more alert today comparitively and is able to converse without nodding off midsentence. Patient stated that he is renewing his trust in God and that he has been unable to trust for quite some time. Patient also stated that he is trusting the doctors to do what is best for him which is also a challenge for him. Patient is taking the "let go and let God" approach to it all. I asked patient if I could pray for him and he said, "Absolutely, please do." I provided prayer. When I closed the the prayer with "Amen" patient said, "In Marshall rodrigue name Amen." I told patient about an inspirational writing that I had and patient said that he would love a copy of it. I will deliver it to him at the conclusion of this note.
--- NOTE | 2018-06-01 17:21 | NUR ---
PT AOX3 AND COOPERATIVE OF CARE. PT IS A STANDBY ASSIST FOR TRANSFERS. PT WAS IN DIALYSIS MOST OF THE MORNING. CHEMO TREATMENT WAS STARTED AROUND 1330 IN PT ROOM AND HAS BEEN SLOWLY TITRATED UP. PT TOLERATING WELL AT THIS TIME. PT RESTING IN BED SLEEPING. NO DISTRESS NOTED. WILL CONTINUE TO MONITOR.
[2018-06-02 04:38] LABS: BASOPHILS PERCENT AUTO 0 % (0-2); EOSINOPHILS ABSOLUTE AUTO 0.03 K/mm3 (0.00-0.68); EOSINOPHILS PERCENT AUTO 0 % (0-6); Hematocrit 28.7 % (37.0-53.0); Hemoglobin 8.8 g/dL (13.5-17.5); IMMATURE GRAN ABSOLUTE AUTO 0.12 K/mm3 (0.00-0.10); IMMATURE GRAN PERCENT AUTO 2 % (0-1); LYMPHOCYTES ABSOLUTE AUTO 0.72 K/mm3 (0.84-5.20); LYMPHOCYTES PERCENT AUTO 9 % (21-46); MONOCYTES ABSOLUTE AUTO 0.81 K/mm3 (0.16-1.47); MONOCYTES PERCENT AUTO 10 % (4-13); Mean Corpuscular HGB 24.2 pg (26.0-34.0); Mean Corpuscular HGB Conc 30.7 g/dL (31.5-36.5); Mean Corpuscular Volume 79 fL (80-100); Mean Platelet Volume 9.7 fL (9.1-12.4); NEUTROPHILS ABSOLUTE AUTO 6.41 K/mm3 (1.96-9.15); NEUTROPHILS PERCENT AUTO 79 % (41-73); Platelet Count 104 K/mm3 (150-400); RDW Coefficient Variation 19.1 % (11.7-14.2); RDW Standard Deviation 53.6 fL (35.1-46.3); Red Blood Cell Count 3.64 M/mm3 (4.30-5.90); White Blood Cell Count 8.09 K/mm3 (4.00-11.30)
[2018-06-02 04:53] LABS: Albumin, Blood 2.4 g/dL (3.4-5.0); Anion Gap 7 mmol/L (6-16); Blood Urea Nitrogen 59 mg/dL (8-24); Bun/Creatinine Ratio 12.6 (12.0-20.0); CO2, Blood 33 mmol/L (21-32); Calcium, Blood 7.9 mg/dL (8.5-10.1); Chloride, Blood 97 mmol/L (98-108); Creatinine, Blood 4.67 mg/dL (0.60-1.20); Glomerular Filtration Rate 14 (60-); Glucose, Blood 126 mg/dL (70-99); Phosphorus, Blood 7.1 mg/dL (2.5-4.9); Potassium, Blood 4.2 mmol/L (3.5-5.5); Sodium, Blood 137 mmol/L (136-145)
--- NOTE | 2018-06-02 05:24 | NUR ---
SHIFT SUMMARY PT C/O ONGOING NAUSEA. PT ZOFRAN FREQUENCY WAS DECREASED TO Q4 HRS. PT HAD NO ACUTE ISSSUES NOTED. PT SLEPT OFF AND ON T/O SHIFT. PT CONTINUES TO BE SBA FOR SAFETY. PT CURRENTLY SLEEPING IN NO DISTRESS. CALL LIGHT IN REACH.
--- NOTE | 2018-06-02 18:40 | NUR ---
SHIFT SUMMARY PATIENT HAS HAD A MUCH BETTER DAY. CURRENTLY OUT WITH A FAMILY FRIEND ENJOYING THE SUN. STATES HE IS FEELING MUCH BETTER. TOLERATING PILLS WITHOUT ISSUE TODAY. NO COMPLAINTS OF NAUSEA THIS AFTERNOON. IN GOOD SPIRITS OVERALL.
--- NOTE | 2018-06-03 05:02 | NUR ---
Shift summary: Pt has good shift. Pt able to sleep most of shift. Pt given zofran x 2 during the night to help with the nausea with effective relief. Pt has implanted morphine pump which gives effective pain relief. Power glide able to flush it but will not draw blood back. Lab called to draw blood.
[2018-06-03 06:01] LABS: BASOPHILS ABSOLUTE AUTO 0.01 K/mm3 (0.00-0.23); BASOPHILS PERCENT AUTO 0 % (0-2); EOSINOPHILS ABSOLUTE AUTO 0.02 K/mm3 (0.00-0.68); EOSINOPHILS PERCENT AUTO 0 % (0-6); Hematocrit 30.6 % (37.0-53.0); Hemoglobin 9.3 g/dL (13.5-17.5); IMMATURE GRAN ABSOLUTE AUTO 0.16 K/mm3 (0.00-0.10); IMMATURE GRAN PERCENT AUTO 2 % (0-1); LYMPHOCYTES ABSOLUTE AUTO 0.72 K/mm3 (0.84-5.20); LYMPHOCYTES PERCENT AUTO 9 % (21-46); MONOCYTES PERCENT AUTO 9 % (4-13); Mean Corpuscular HGB 24.2 pg (26.0-34.0); Mean Corpuscular HGB Conc 30.4 g/dL (31.5-36.5); Mean Corpuscular Volume 80 fL (80-100); NEUTROPHILS ABSOLUTE AUTO 6.32 K/mm3 (1.96-9.15); NEUTROPHILS PERCENT AUTO 80 % (41-73); Platelet Count 120 K/mm3 (150-400); RDW Coefficient Variation 19.7 % (11.7-14.2); RDW Standard Deviation 55.8 fL (35.1-46.3); Red Blood Cell Count 3.85 M/mm3 (4.30-5.90); White Blood Cell Count 7.93 K/mm3 (4.00-11.30)
[2018-06-03 06:23] LABS: Albumin, Blood 2.7 g/dL (3.4-5.0); Anion Gap 10 mmol/L (6-16); Blood Urea Nitrogen 74 mg/dL (8-24); CO2, Blood 30 mmol/L (21-32); Calcium, Blood 7.8 mg/dL (8.5-10.1); Chloride, Blood 98 mmol/L (98-108); Creatinine, Blood 5.69 mg/dL (0.60-1.20); Glomerular Filtration Rate 11 (60-); Glucose, Blood 112 mg/dL (70-99); Phosphorus, Blood 7.5 mg/dL (2.5-4.9); Potassium, Blood 4.3 mmol/L (3.5-5.5); Sodium, Blood 138 mmol/L (136-145)
--- NOTE | 2018-06-03 11:23 | NUR ---
Met with patient in dialysis. pt fatigued and slow in his response. Expresses fear and anexiety and anger. he is repetative. pt was abl;e to transfer with assistance. he complains fo fatigue and weakness and pain. pt very high fall risk. took lots of encouragement to get him to look up and lift his arms when adjusted in bed. Affect flat changes subject. he just wants to sleep. changed to theraputic interaction he is scared of dialysis and his prognosis. He would be best in snf . may need assisted living will need extensive disease management or will have potential for frequent ER visits. Will need social assessment if he lacks support he may benefit from medicare sales representative to manage his appointments and needs. pt [place] he states it really does nnot do much for him anymore. will see if primary care can speak with his pain specialist on alternate plan. He is going to need to sit in a chair for at least three hours at a time three days a week at dialysis. May need new pain plan
--- NOTE | 2018-06-03 17:43 | NUR ---
SHIFT SUMMARY. A&OX3, INDEPENDENT IN ROOM, PT IS AWARE OF LIMITATIONS, NO SAFETY CONCERNS. PT WITH CHRONIC BACK PAIN PRIOR TO DIALYSIS THIS AM, MANAGED WELL WITH CURRENT ORDERS. PT WITH NAUSEA WITHOUT VOMITTING AFTER DIALYSIS AND WHILE AMBULATING WITH PHYSICAL THERAPY, PRN ZOFRAN 4MG IV MANAGED NAUSEA WELL. NO SOB. NO OTHER CHANGES.
--- NOTE | 2018-06-04 04:59 | NUR ---
Shift summary. Pt has almost constant nausea. pt getting zofran as often as he can get it and is therefore able to eat something. Pt came back from dialysis last pm stating that it had not gone well at all. Pt seemed very depressed. Does not think his treatment is going very well. Pt able to ambulate well with walker or is able to push himself around in wheelchair. Power glide iv is not able to draw blood but flushes well.
--- NOTE | 2018-06-05 04:53 | NUR ---
Shift summary: Pt up several times overnight wondering around in wheelchair. Vss. No request for pain meds during night but has chronic nausea and is getting zofran every four hours so he can eat. Power glide will not draw blood. No other significant changes.
[2018-06-05 08:07] LABS: BASOPHILS ABSOLUTE AUTO 0.02 K/mm3 (0.00-0.23); BASOPHILS PERCENT AUTO 0 % (0-2); EOSINOPHILS ABSOLUTE AUTO 0.08 K/mm3 (0.00-0.68); EOSINOPHILS PERCENT AUTO 1 % (0-6); Hematocrit 31.2 % (37.0-53.0); Hemoglobin 9.2 g/dL (13.5-17.5); IMMATURE GRAN ABSOLUTE AUTO 0.22 K/mm3 (0.00-0.10); IMMATURE GRAN PERCENT AUTO 2 % (0-1); LYMPHOCYTES ABSOLUTE AUTO 1.09 K/mm3 (0.84-5.20); LYMPHOCYTES PERCENT AUTO 10 % (21-46); MONOCYTES ABSOLUTE AUTO 1.08 K/mm3 (0.16-1.47); MONOCYTES PERCENT AUTO 10 % (4-13); Mean Corpuscular HGB 23.9 pg (26.0-34.0); Mean Corpuscular HGB Conc 29.5 g/dL (31.5-36.5); Mean Corpuscular Volume 81 fL (80-100); Mean Platelet Volume 10.1 fL (9.1-12.4); NEUTROPHILS ABSOLUTE AUTO 8.35 K/mm3 (1.96-9.15); NEUTROPHILS PERCENT AUTO 77 % (41-73); Platelet Count 123 K/mm3 (150-400); RDW Coefficient Variation 20.6 % (11.7-14.2); RDW Standard Deviation 59.6 fL (35.1-46.3); Red Blood Cell Count 3.85 M/mm3 (4.30-5.90); White Blood Cell Count 10.84 K/mm3 (4.00-11.30)
[2018-06-05 08:29] LABS: Alanine Aminotransfer (ALT/SGP 11 U/L (12-78); Albumin, Blood 2.8 g/dL (3.4-5.0); Albumin/Globulin Ratio 0.8 (0.8-1.8); Alk Phos 86 U/L (50-136); Anion Gap 7 mmol/L (6-16); Aspartate Aminotrans (AST/SGOT 13 U/L (12-37); Bilirubin, Total 0.5 mg/dL (0.1-1.0); Blood Urea Nitrogen 66 mg/dL (8-24); Bun/Creatinine Ratio 13.2 (12.0-20.0); CO2, Blood 30 mmol/L (21-32); Calcium, Blood 7.8 mg/dL (8.5-10.1); Chloride, Blood 100 mmol/L (98-108); Creatinine, Blood 4.99 mg/dL (0.60-1.20); Globulin, Blood 3.3 g/dL (2.2-4.0); Glomerular Filtration Rate 13 (60-); Glucose, Blood 103 mg/dL (70-99); Phosphorus, Blood 5.2 mg/dL (2.5-4.9); Potassium, Blood 4.7 mmol/L (3.5-5.5); Sodium, Blood 137 mmol/L (136-145); Total Protein, Blood 6.1 g/dL (6.4-8.2)
--- NOTE | 2018-06-05 16:54 | NUR ---
SHIFT SUMMARY 58 YR OLD MALE. FULL CODE. ADMITTED FOR ARF. MECHANICAL SOFT DIET. DIALYSIS PT. MEDS TAKEN WHOLE W/PUDDING OR YOGURT. PT USES A WHEELCHAIR OR WALKER INDEPENDENTLY. HE HAS AN ACCESSED PERMACATH IN RT UPPER CHEST. POWERGLIDE IN LFT UPPER ARM THAT FLUSHES BUT WILL NOT DRAW. HX: CHEMO RX, ANEMIA, PETECHIAL RASH/THROMBOCYTOPENIA, HYPERLIPIDEMIA, ACID REFLUX. ZOFRAN GIVEN 30 MIN BEFORE MEALS EASES NAUSEA. HE HAS BEEN ACCEPTED FOR PLACEMENT TODAY AT [facility] IN [place] ([facility] ON June. THEY WILL PAY HALF OF TRANSPORTATION, WITH THE PT RESPONSIBLE FOR THE REST OF COST. PT HAS BEEN INFORMED. HE HAS AN ABDOMINAL PUMP FOR BACK PAIN WHICH IS MANAGED BY HIS PCP. SCD'S FOR DVT PREVENTION.
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
[2018-06-06 09:38] LABS: Albumin, Blood 2.8 g/dL (3.4-5.0); Anion Gap 7 mmol/L (6-16); Blood Urea Nitrogen 54 mg/dL (8-24); Bun/Creatinine Ratio 13.1 (12.0-20.0); CO2, Blood 29 mmol/L (21-32); Calcium, Blood 8.1 mg/dL (8.5-10.1); Chloride, Blood 102 mmol/L (98-108); Creatinine, Blood 4.13 mg/dL (0.60-1.20); Glomerular Filtration Rate 16 (60-); Glucose, Blood 153 mg/dL (70-99); Phosphorus, Blood 4.1 mg/dL (2.5-4.9); Potassium, Blood 4.7 mmol/L (3.5-5.5); Sodium, Blood 138 mmol/L (136-145)
--- NOTE | 2018-06-06 15:53 | NUR ---
Spiritua Care visit: Dario has a very positive outlook. He has a salome spiritual program that sustains him. He has a solid plan for recovery and tells me he is free from fear/worry. He expects to return to [place] for rehab in next day or two. He has a great network of friends to help. Prayer for continued healing provided at bedside. I will remain available.
--- NOTE | 2018-06-06 18:07 | NUR ---
SHIFT SUMMARY PT INDEPENDENT IN ROOM. WHEELS SELF ABOUT IN HALLWAY AND OUTSIDE. REPORTS NAUSEA AND REQUESTING ZOFRAN EVERY [address] LEMUS REPORTS HE NEEDS A SPOT AT A DIALYSIS CENTER IN [place] OR WHEREVER HE IS GOING TO BE JUST IN CASE HE NEEDS DIALYSIS. PLANS FOR DISCHARGE TOMORROW TO A REHAB IN [place].
[2018-06-07 04:58] LABS: Albumin, Blood 2.9 g/dL (3.4-5.0); Anion Gap 7 mmol/L (6-16); Blood Urea Nitrogen 64 mg/dL (8-24); Bun/Creatinine Ratio 13.9 (12.0-20.0); CO2, Blood 32 mmol/L (21-32); Calcium, Blood 8.2 mg/dL (8.5-10.1); Chloride, Blood 100 mmol/L (98-108); Creatinine, Blood 4.59 mg/dL (0.60-1.20); Glomerular Filtration Rate 14 (60-); Glucose, Blood 97 mg/dL (70-99); Phosphorus, Blood 5.2 mg/dL (2.5-4.9); Potassium, Blood 5.1 mmol/L (3.5-5.5); Sodium, Blood 139 mmol/L (136-145)
--- NOTE | 2018-06-07 06:18 | NUR ---
58 Y/O MALE RESTED COMFORTABLY ALL NIGHT. PT HAD OCCASIONAL NAUSEA WITHOUT EMESIS, ZOFRAN 4MG IVP GIVEN WITH RELIEF. PT UP FREQUENTLY VIA WHEELCHAIR AND WENT TO ER LOBBY OR SAT OUTSIDE FOR 30 MINUTES FOR FRESH AIR. PT HAPPY AND COOPERATIVE. PT POSSIBLY BEING DISCHARGED TODAY TO [facility] IN [place], [place]. PT DENIES PAIN. PTS BED LOW POSITION, CALL LIGHT AT SIDE.
--- NOTE | 2018-06-07 15:00 | NUR ---
PT OUT TO SMOKE SEVERAL TIMES TODAY. DID HAVE DIALYSIS THIS MORNING. PLANS TO GO TO [facility]. FRIEND TO TRANSPORT PT HERE TO PICK HIM UP. DOSED WITH ZOFRAN JUST PRIOR TO POWER GLIDE BEING REMOVED. TO [facility] VIA W/C.
--- NOTE | 2018-06-07 16:30 | NUR ---
CALLED REPORT TO GINNY AT [facility] AND JUST AFTER GETTING OFF PHONE SPEED RUNNER STATED PT CALLED AND HAD DECIDED TO NOT GO TO REHAB AFTER ALL.
[2018-06-07] MEDS ORDERED: ACET325 PO (19:50)
[2018-06-07] MEDS ORDERED: METO25 PO (19:50)
[2018-06-07] MEDS ORDERED: MELATONIN5 M1 PO (19:51)
[2018-06-07] MEDS ORDERED: CYAN500 PO (19:51)
[2018-06-07] MEDS ORDERED: GAVILAX17 GM PO (19:52)
[2018-06-07] MEDS ORDERED: FURO40 PO (19:52)
[2018-06-07] MEDS ORDERED: ONDA4ODT MM (19:53)
[2018-06-07] MEDS ORDERED: PRED10 PO (19:54)
[2018-06-07] MEDS ORDERED: Bactrim 400-801 EACH PO (19:55)
[2018-06-07] MEDS ORDERED: CHOL10002 PO (19:56)
== END 2018-06-07 14:29 | DRG 700 ==
LOC: ER 14:04 → MEDS 15:27 → ICUE 15:27 → PCU 15:27 → ICUE 05-26 09:37 → MEDS 05-26 23:15 → ENPENDDIS 06-07 12:15 → MEDS 06-07 14:29
PROVIDERS: Emergency Medicine; Internal Medicine; Internal Medicine Nephrology; Internal Medicine Pulmonary Disease; ADMIT Family Medicine
PROC: 0JHD3XZ Insertion of Tunneled Vascular Access Device into Right Upper Arm Subcutaneous Tissue and Fascia, Percutaneous Approach (ICD-10-PCS; principal; 2018-05-26)
PROC: 5A1D70Z Performance of Urinary Filtration, Intermittent, Less than 6 Hours Per Day (ICD-10-PCS; 2018-05-26)
PROC: 5A1D70Z Performance of Urinary Filtration, Intermittent, Less than 6 Hours Per Day (ICD-10-PCS; 2018-05-27)
PROC: 5A1D70Z Performance of Urinary Filtration, Intermittent, Less than 6 Hours Per Day (ICD-10-PCS; 2018-05-28)
PROC: 30233N1 Transfusion of Nonautologous Red Blood Cells into Peripheral Vein, Percutaneous Approach (ICD-10-PCS; 2018-05-29)
PROC: 05HM33Z Insertion of Infusion Device into Right Internal Jugular Vein, Percutaneous Approach (ICD-10-PCS; 2018-05-30)
PROC: 5A1D70Z Performance of Urinary Filtration, Intermittent, Less than 6 Hours Per Day (ICD-10-PCS; 2018-05-31)
PROC: 5A1D70Z Performance of Urinary Filtration, Intermittent, Less than 6 Hours Per Day (ICD-10-PCS; 2018-06-02)
PROC: 5A1D70Z Performance of Urinary Filtration, Intermittent, Less than 6 Hours Per Day (ICD-10-PCS; 2018-06-03)
PROC: 5A1D70Z Performance of Urinary Filtration, Intermittent, Less than 6 Hours Per Day (ICD-10-PCS; 2018-06-05)
PROC: 5A1D70Z Performance of Urinary Filtration, Intermittent, Less than 6 Hours Per Day (ICD-10-PCS; 2018-06-07)
DX: N00.7 Acute nephritic syndrome with diffuse crescentic glomerulonephritis (principal); N17.9 Acute kidney failure, unspecified; I77.89 Other specified disorders of arteries and arterioles; D63.1 Anemia in chronic kidney disease; I12.9 Hypertensive chronic kidney disease with stage 1 through stage 4 chronic kidney disease, or unspecified chronic kidney disease; N18.9 Chronic kidney disease, unspecified; L40.9 Psoriasis, unspecified; E87.5 Hyperkalemia; E83.39 Other disorders of phosphorus metabolism; D70.9 Neutropenia, unspecified; N18.4 Chronic kidney disease, stage 4 (severe); F17.210 Nicotine dependence, cigarettes, uncomplicated; D50.9 Iron deficiency anemia, unspecified; K59.00 Constipation, unspecified
CPT/HCPCS: 36415; 36430; 36556; 71045; 74176; 77001; 80048; 80053; 80069; 81001; 82550; 82595; 82607; 82746; 82784; 83010; 83516; 83615; 83690; 83735; 84100; 84165; 85014; 85018; 85025; 85610; 86038; 86160; 86256; 86334; 86430; 86850; 86900; 86901; 86923; 87040; 87086; 88305; 88312; 92526; 92610; 93005; 93010; 93970; 96361; 96374; 96375; 97110; 97116; 97162; 99285-25; C1750; C1751; C1752; C9113; J0360; J0610; J0690; J0881; J1100; J1642; J1644; J1815; J2250; J2405; J2550; J2704; J2930; J3010; J3420; J7030; J7042; J7060; J7120; J7512; J9312; P9016

== ENCOUNTER 2018-06-16 09:03 | Emergency (ER) | payer MEDICARE ==
[~2018-06-16] VITALS: Ht 172.7 cm; Wt 88.5 kg
[~2018-06-16 09:03] MED LIST changes: +ACET325 PO; -ANORO ELLIPTA1 EACH INH; +Bactrim Ds Tab1 EACH PO; +CHOL10002 PO; +CYAN500 PO; +FURO40 PO; +GAVILAX17 GM PO; +MELATONIN5 M1 PO; +METO25 PO; +ONDA4 PO; +OXYC10ER PO; +OXYC5 PO; +PRED10 PO; +Zestril40 MG PO
[2018-06-16 09:48] LABS: BASOPHILS ABSOLUTE AUTO 0.01 K/mm3 (0.00-0.23); BASOPHILS PERCENT AUTO 0 % (0-2); EOSINOPHILS ABSOLUTE AUTO 0.13 K/mm3 (0.00-0.68); EOSINOPHILS PERCENT AUTO 2 % (0-6); Hemoglobin 9.2 g/dL (13.5-17.5); IMMATURE GRAN ABSOLUTE AUTO 0.04 K/mm3 (0.00-0.10); IMMATURE GRAN PERCENT AUTO 1 % (0-1); LYMPHOCYTES ABSOLUTE AUTO 0.63 K/mm3 (0.84-5.20); LYMPHOCYTES PERCENT AUTO 8 % (21-46); MONOCYTES ABSOLUTE AUTO 0.46 K/mm3 (0.16-1.47); MONOCYTES PERCENT AUTO 6 % (4-13); Mean Corpuscular HGB 26.2 pg (26.0-34.0); Mean Corpuscular HGB Conc 29.7 g/dL (31.5-36.5); Mean Platelet Volume 9.9 fL (9.1-12.4); NEUTROPHILS ABSOLUTE AUTO 6.75 K/mm3 (1.96-9.15); NEUTROPHILS PERCENT AUTO 84 % (41-73); Platelet Count 63 K/mm3 (150-400); RDW Coefficient Variation 22.8 % (11.7-14.2); RDW Standard Deviation 74.3 fL (35.1-46.3); Red Blood Cell Count 3.51 M/mm3 (4.30-5.90); White Blood Cell Count 8.02 K/mm3 (4.00-11.30)
[2018-06-16 09:49] LABS: Mean Corpuscular Volume 88 fL (80-100)
[2018-06-16 10:00] LABS: Albumin, Blood 3.2 g/dL (3.4-5.0); Bilirubin, Total 0.5 mg/dL (0.1-1.0); Bun/Creatinine Ratio 12.7 (12.0-20.0); Calcium, Blood 8.1 mg/dL (8.5-10.1); Creatinine, Blood 2.91 mg/dL (0.60-1.20); Globulin, Blood 3.1 g/dL (2.2-4.0); Total Protein, Blood 6.3 g/dL (6.4-8.2); Troponin I 0.017 ng/mL (0.000-0.040)
[2018-06-16] MEDS ORDERED: ALBU2.5V5 NEB (11:51)
== END 2018-06-16 12:28 | disposition home or self-care (01) ==
LOC: ER 09:03
PROVIDERS: Emergency Medicine
DX: J44.1 Chronic obstructive pulmonary disease with (acute) exacerbation (principal); F17.210 Nicotine dependence, cigarettes, uncomplicated; Z79.52 Long term (current) use of systemic steroids; Z79.899 Other long term (current) drug therapy
CPT/HCPCS: 36415; 71046; 80053; 83880; 84484; 85025; 93005; 93010; 94640; 96374; 99285-25; J2930

== ENCOUNTER 2018-06-18 08:04 | Inpatient (IN) | payer MEDICARE ==
[~2018-06-18] VITALS: Ht 172.7 cm; Wt 85.7 kg
[~2018-06-18 08:04] MED LIST changes: +ALBU2.5V5 NEB
[2018-06-18 08:53] LABS: BASOPHILS PERCENT AUTO 0 % (0-2); EOSINOPHILS ABSOLUTE AUTO 0.07 K/mm3 (0.00-0.68); EOSINOPHILS PERCENT AUTO 1 % (0-6); Hematocrit 31.3 % (37.0-53.0); Hemoglobin 9.2 g/dL (13.5-17.5); IMMATURE GRAN ABSOLUTE AUTO 0.04 K/mm3 (0.00-0.10); IMMATURE GRAN PERCENT AUTO 1 % (0-1); LYMPHOCYTES ABSOLUTE AUTO 0.66 K/mm3 (0.84-5.20); LYMPHOCYTES PERCENT AUTO 12 % (21-46); MONOCYTES ABSOLUTE AUTO 0.44 K/mm3 (0.16-1.47); MONOCYTES PERCENT AUTO 8 % (4-13); Mean Corpuscular HGB 26.2 pg (26.0-34.0); Mean Corpuscular HGB Conc 29.4 g/dL (31.5-36.5); Mean Corpuscular Volume 89 fL (80-100); Mean Platelet Volume 10.4 fL (9.1-12.4); NEUTROPHILS PERCENT AUTO 79 % (41-73); Platelet Count 64 K/mm3 (150-400); RDW Coefficient Variation 22.6 % (11.7-14.2); RDW Standard Deviation 74.8 fL (35.1-46.3); Red Blood Cell Count 3.51 M/mm3 (4.30-5.90); White Blood Cell Count 5.71 K/mm3 (4.00-11.30)
[2018-06-18 09:07] LABS: Albumin, Blood 3.1 g/dL (3.4-5.0); Bilirubin, Total 0.6 mg/dL (0.1-1.0); Bun/Creatinine Ratio 11.6 (12.0-20.0); Calcium, Blood 8.1 mg/dL (8.5-10.1); Creatinine, Blood 3.03 mg/dL (0.60-1.20); Globulin, Blood 3.2 g/dL (2.2-4.0); Potassium, Blood 3.7 mmol/L (3.5-5.5); Total Protein, Blood 6.3 g/dL (6.4-8.2); Troponin I 0.021 ng/mL (0.000-0.040)
[2018-06-18 09:55] LABS: Base Excess Venous 11.8 mmol/L; PCO2 Venous 57.5 mmHg (38-42); PO2 Venous 82.5 mmHg (38-42); pH Blood Venous 7.41 (7.34-7.37)
[2018-06-18] MEDS ORDERED: FOLI1 PO (14:12)
[2018-06-18] MEDS ORDERED: ALBU2.5V5 NEB (14:39)
[2018-06-18] MEDS ORDERED: ANORO ELLIPTA1 EACH INH (14:41)
--- NOTE | 2018-06-18 17:36 | NUR ---
SHIFT SUMMARY: ASUMMED CARE OF PT AT 1600, REPORT RECEIVED FROM DIRECTOR MULTIMEDIA IAN. PT ARRIVED VIA STRETCHER TO THE UNIT AND WAS ABLE TO AMBULATE IND TO HOSPITAL BED. PT IS GAIT IS STEADY, HOWEVER PT CLAIMS TO BE WEAK. PT APPEARS SHORT OF BREATH AND IS CURRENTLY ON 4L O2 VIA NC. PT ALSO STATES THAT HE IS DIZZY. PT 02 SATURATION ARE ABOVE 90% AND HE CONTINUES TO POSITION HIMSELF INTO THE TRIPOD POSITION. PT REFUSES TO BE ON BIPAP MACHING STATING " I DO NOT NEED IT" PT IS ALERT AND ORIENTED X3 AND RECENT AND REMOTE MEMORIES ARE INTACT. PT IS IN NSR WITH HR IN THE 60'S. PT HAS A CVC CATHETER THAT IS C/D/I. PT WAS ORIENTED TO THE ROOM. BED AT LOWEST LEVEL AND CALL LIGHT WITHIN REACH. WILL CONTINUE TO MONITOR UNTIL REPORT IS GIVEN TO ONCOMING SHIFT.
--- NOTE | 2018-06-18 18:47 | NUR ---
BIPAP USE: PT REQUESTED TO HAVE BIPAP ON FOR DIALYSIS. PT STATED " I FEEL LIKE I CANNOT LAY DOWN WITHOUT IT". AFTER A FEW MINUTES PT BECAME TO FEEL ANXIOUS AND ATTEMPTED TO TAKE OFF MASK STATING " IT IS NOT WORKING, I CANNOT CATCH MY BREATH" O2 STATURATION WERE AT 98 %. PT THEN REQUESTED TO HAVE AN ANTIANXIETY MEDICATION TO HELP HIM WITH HIS BREATHING. NOTHING IS ORDERED AT THIS TIME. WILL STAY WITH PATIENT UNTIL REPORT IS GIVEN.
--- NOTE | 2018-06-18 19:05 | NUR ---
NON-ROUTINE HOURS 1:[address] LEMUS'S ORDER FOR PATIENT ADMITTED TO PCU VIA ER WITH COMPLAINT OF ACUTE SOB AND ASSOCIATED ANXIETY. PATIENT CURRENTLY ON BI-PAP WITH GOOD EFFICACY NOTED WITH 100% O2 SAT.
--- NOTE | 2018-06-18 21:03 | NUR ---
CALLED PHARMACIST PER DR. BROWN'S NOT FOR ESRD ADJUSTMENT ON CEFEPINE; PHARMACIST REPORTS ALREADY COMPLETED AND THE MEDICATION IN PCU IS THE ADJUSTED DOSE.
--- NOTE | 2018-06-19 00:32 | NUR ---
PT USES TRIPOD POSITION TO BREATH AT TIMES; C/O BIPAP AND BECOMES ANXIOUS W/ USE AT TIMES; REQUESTED MEDICATION TO HELP W/ ANXIETY; O2 SATS IN THE 90'S W/ 4 LPM NC; DIALYSIS IN ROOM AT 1900; SKIN IS BRUISED, ECCMOTIC W/ VARYING DEGREES OF HEALING; PT IS INDEPENDENT AT HOME BASELINE AND AMBULATES TO BATHROOM; PT STATES HE LIVES IN A [facility] ROOM; PT EDUCATED AUTOMATED MANUFACTURING INSTRUCTOR LIGHT FOR ASSISTANCE TO AMBULATE; BED ALARM ON; BED IN LOWEST POSITION; CALL LIGHT WITHIN REACH; WILL CONTINUE TO ASSESS AND MONITOR UNTIL HANDOFF TO DAY SHIFT RN.
--- NOTE | 2018-06-19 03:42 | NUR ---
DURING CARE ROUNDING PT NOTED TO HAVE O2 OFF; CONTINUES TO REFUSE BIPAP; DESTATING TO LOW TO MID 80'S; REPEATEDLY EDUCATED PT ON KEEPING O2 ON TO MAINTAIN O2 SATUATION; WILL CONTINUE TO MONITOR AND ASSESS UNTIL END OF SHIFT.
[2018-06-19 03:53] LABS: BASOPHILS PERCENT AUTO 0 % (0-2); EOSINOPHILS PERCENT AUTO 0 % (0-6); Hematocrit 31.1 % (37.0-53.0); Hemoglobin 9.1 g/dL (13.5-17.5); IMMATURE GRAN ABSOLUTE AUTO 0.02 K/mm3 (0.00-0.10); IMMATURE GRAN PERCENT AUTO 1 % (0-1); LYMPHOCYTES ABSOLUTE AUTO 0.15 K/mm3 (0.84-5.20); LYMPHOCYTES PERCENT AUTO 4 % (21-46); MONOCYTES PERCENT AUTO 3 % (4-13); Mean Corpuscular HGB 26.1 pg (26.0-34.0); Mean Corpuscular HGB Conc 29.3 g/dL (31.5-36.5); Mean Corpuscular Volume 89 fL (80-100); Mean Platelet Volume 9.9 fL (9.1-12.4); NEUTROPHILS ABSOLUTE AUTO 3.48 K/mm3 (1.96-9.15); NEUTROPHILS PERCENT AUTO 93 % (41-73); Platelet Count 61 K/mm3 (150-400); RDW Coefficient Variation 21.7 % (11.7-14.2); RDW Standard Deviation 71.3 fL (35.1-46.3); Red Blood Cell Count 3.49 M/mm3 (4.30-5.90); White Blood Cell Count 3.75 K/mm3 (4.00-11.30)
[2018-06-19 04:13] LABS: Albumin, Blood 3.1 g/dL (3.4-5.0); Anion Gap 7 mmol/L (6-16); Blood Urea Nitrogen 34 mg/dL (8-24); Bun/Creatinine Ratio 13.4 (12.0-20.0); CO2, Blood 34 mmol/L (21-32); Calcium, Blood 8.4 mg/dL (8.5-10.1); Chloride, Blood 101 mmol/L (98-108); Creatinine, Blood 2.54 mg/dL (0.60-1.20); Glomerular Filtration Rate 28 (60-); Glucose, Blood 122 mg/dL (70-99); Phosphorus, Blood 6.3 mg/dL (2.5-4.9); Potassium, Blood 4.4 mmol/L (3.5-5.5); Sodium, Blood 142 mmol/L (136-145); Vancomycin, Random 9.3 ug/mL
--- NOTE | 2018-06-19 11:13 | NUR ---
Spiritual care visit conducted. Patient was unable to carry on much of a conversation because of the struggle with air hunger and trying to talk through the mask. Patient was able to affirmatively respond to having prayer provided. I, then, proceeded to pray for patient. Patient was able to thank me for the prayer. I also asked if patient would like therapeutic guitar music and patient stated that he would think about it and let me know. I will continue to remain available to patient.
--- NOTE | 2018-06-19 17:48 | NUR ---
SHIFT SUMMARY: ASSUMED CARE PT AT 0700, RECIVED REPORT FROM JENNIFER RAMSAY. UPON ENTERING ROOM PT WAS ON 4L OF 02 VIA NC, AND WAS EXPERIENCING LABORED BREATHING. ADVISED PT THAT BIPAP WAS NEEDED, AND HE INITALLY REFUSED TO USE IT. HOWEVER, AFTER BREAKFEST HIS 02 STATURATIONS DROPPED INTO THE LOW 80'S AND WAS EXPERIENCING DYSPNEA AND HE WAS FOUND IN THE TRIPOD POSITION. PT WAS THEN ADVISED AGAIN THAT BIPAP WAS NEEDED AND HE THEN AGREED, HOWEVER HE STATED " PLEASE GIVE ME SOMETHING TO CALM ME DOWN, I FEEL LIKE I CAN'T BREATH WITH THE MACHINE ON". PHYSICAN WAS CALLED AND ORDERED WAS PLACED FOR ATIVAN PRN. PT WAS GIVEN THE MEDICATION WHICH IMPROVED HIS TOLERANCE TO THE BIPAP. PT'S 02 ON THE BIPAP INCREASED TO 98% AND HE WAS ABLE TO SLEEP FOR 6 HOURS. AROUND DINNER TIME PT WAS A LETHARGIC, HOWEVER, HE WAS EASY TO AROUSE. PT WAS ENCOURAGED TO EAT DINNER AND WAS TAKEN OFF THE BIPAP AND PLACED ON 3L OF 02 VIA NC. PT 02 STATURATION HAVE REMAINED ABOVE 90% AND HE IS CURRENLTY SITTING AT THE EDGE OF THE BED. WILL CONTINUE TO MONITOR STATUS UNTIL REPORT IS GIVEN TO EXCHANGE ADMINISTRATOR.
--- NOTE | 2018-06-20 05:44 | NUR ---
SHIFT SUMMARY PT SLEEPING IN ROOM COMFORTABLY AT THIS TIME. NO ACUTE CHANGES IN STATUS T/O NIGHT. PT SLEPT WELL W/ BIPAP MACHINE IN PLACE. DENIED ANY PAIN T/O NIGHT. RESP EVEN UNLBAORED ON BIPAP W/ SATS >92%. DENIES OTHER NEEDS AT THIS TIME. CALL LIGHT IN REACH AND PT CALLS APPRORIATELY.
[2018-06-20 10:02] LABS: BASOPHILS PERCENT AUTO 0 % (0-2); EOSINOPHILS PERCENT AUTO 0 % (0-6); Hematocrit 32.6 % (37.0-53.0); Hemoglobin 9.7 g/dL (13.5-17.5); IMMATURE GRAN ABSOLUTE AUTO 0.02 K/mm3 (0.00-0.10); IMMATURE GRAN PERCENT AUTO 1 % (0-1); LYMPHOCYTES ABSOLUTE AUTO 0.17 K/mm3 (0.84-5.20); LYMPHOCYTES PERCENT AUTO 7 % (21-46); MONOCYTES ABSOLUTE AUTO 0.19 K/mm3 (0.16-1.47); MONOCYTES PERCENT AUTO 7 % (4-13); Mean Corpuscular HGB 26.4 pg (26.0-34.0); Mean Corpuscular HGB Conc 29.8 g/dL (31.5-36.5); Mean Corpuscular Volume 89 fL (80-100); Mean Platelet Volume 10.1 fL (9.1-12.4); NEUTROPHILS ABSOLUTE AUTO 2.18 K/mm3 (1.96-9.15); NEUTROPHILS PERCENT AUTO 85 % (41-73); Platelet Count 73 K/mm3 (150-400); RDW Coefficient Variation 20.9 % (11.7-14.2); RDW Standard Deviation 68.2 fL (35.1-46.3); Red Blood Cell Count 3.67 M/mm3 (4.30-5.90); White Blood Cell Count 2.56 K/mm3 (4.00-11.30)
[2018-06-20 10:16] LABS: Albumin, Blood 3.2 g/dL (3.4-5.0); Anion Gap 9 mmol/L (6-16); Blood Urea Nitrogen 67 mg/dL (8-24); Bun/Creatinine Ratio 19.6 (12.0-20.0); CO2, Blood 33 mmol/L (21-32); Calcium, Blood 8.7 mg/dL (8.5-10.1); Chloride, Blood 100 mmol/L (98-108); Creatinine, Blood 3.41 mg/dL (0.60-1.20); Glomerular Filtration Rate 20 (60-); Glucose, Blood 181 mg/dL (70-99); Phosphorus, Blood 7.1 mg/dL (2.5-4.9); Potassium, Blood 4.2 mmol/L (3.5-5.5); Sodium, Blood 142 mmol/L (136-145)
[2018-06-20 12:19] LABS: Vancomycin, Random 11.2 ug/mL
--- NOTE | 2018-06-20 19:49 | NUR ---
SHIFT SUMMARY Assumed care of pt at 0700. Report recieved from Elena RAMSAY. Pt on 2 LPM NC at time of report. Pt to dialysis this AM. BiPAP taken to dialysis room so he could wear it and comfortably lay flat during treatment. While in dialysis, pt's mom called and requested an update. This RN stated that pt was unavailable but this RN would let the patient know she called so that he can update her on plan of care. Pt updated when he returned from dialysis. Pt had visitors for most of the afternoon, therefore, this RN did not encourage pt to wear the BiPAP. O2 sats were 95-97% with 2 LPM NC (humidified) per continuous oximetry. Bed maintained in lowest position. Call light in reach. Pt asleep in bed during bedside report with oncoming RNDot.
--- NOTE | 2018-06-20 21:53 | NUR ---
PM NOTE. ASSUMED CARE OF PT APROX 1900, PT IS A&O AND SITTING ON THE SIDE OF THE BED. PT WAS ADMITTED DUE TO ACUTE RESP FAILURE. PT IS CURRENTLY USING 2L NC WITH O2 SATS AT 96%. PT HAS BIPAP IN THE ROOM FOR SLEEP AND RESCUE IF NEEDED. TELE INTACT, NSR IN THE 80'S PER PATTERN MAKER PROGRAMER. PT'S BP 160/75. PT HAS 1+ PITTING EDEMA TO HIS BLLE, AND 2+ ON THE TOP OF HIS LEFT FOOT. PT'S L/S CLEAR T/O AND COARSENESS IN THE LOWER BASES. BT PRESENT AND HYPOACTIVE, ABD IS SLIGHTLY FIRM AND NONTENDER TO PALP. CALL LIGHT IN REACH, BED IS LOCKED AND LOW WILL CONTINUE TO MONITOR .
--- NOTE | 2018-06-21 02:56 | NUR ---
PT UPDATE.. PT WAS ON THE BIPAP APROX 1 HOUR BEFORE REQUESTING IT TO BE REMOVED, PT'S O2 SATS WERE >90% ON 2L NC. WILL CONTINUE TO MONITOR.
[2018-06-21 04:13] LABS: BASOPHILS PERCENT AUTO 0 % (0-2); EOSINOPHILS PERCENT AUTO 0 % (0-6); Hematocrit 30.9 % (37.0-53.0); Hemoglobin 9.4 g/dL (13.5-17.5); IMMATURE GRAN ABSOLUTE AUTO 0.01 K/mm3 (0.00-0.10); IMMATURE GRAN PERCENT AUTO 0 % (0-1); LYMPHOCYTES ABSOLUTE AUTO 0.33 K/mm3 (0.84-5.20); LYMPHOCYTES PERCENT AUTO 9 % (21-46); MONOCYTES ABSOLUTE AUTO 0.43 K/mm3 (0.16-1.47); MONOCYTES PERCENT AUTO 12 % (4-13); Mean Corpuscular HGB 26.4 pg (26.0-34.0); Mean Corpuscular HGB Conc 30.4 g/dL (31.5-36.5); Mean Corpuscular Volume 87 fL (80-100); Mean Platelet Volume 9.9 fL (9.1-12.4); NEUTROPHILS ABSOLUTE AUTO 2.89 K/mm3 (1.96-9.15); NEUTROPHILS PERCENT AUTO 79 % (41-73); Platelet Count 78 K/mm3 (150-400); RDW Coefficient Variation 20.6 % (11.7-14.2); RDW Standard Deviation 66.3 fL (35.1-46.3); Red Blood Cell Count 3.56 M/mm3 (4.30-5.90); White Blood Cell Count 3.66 K/mm3 (4.00-11.30)
[2018-06-21 04:32] LABS: Albumin, Blood 3.2 g/dL (3.4-5.0); Anion Gap 8 mmol/L (6-16); Blood Urea Nitrogen 64 mg/dL (8-24); Bun/Creatinine Ratio 21.5 (12.0-20.0); CO2, Blood 34 mmol/L (21-32); Calcium, Blood 8.8 mg/dL (8.5-10.1); Chloride, Blood 96 mmol/L (98-108); Creatinine, Blood 2.97 mg/dL (0.60-1.20); Glomerular Filtration Rate 23 (60-); Glucose, Blood 105 mg/dL (70-99); Phosphorus, Blood 4.9 mg/dL (2.5-4.9); Potassium, Blood 4.5 mmol/L (3.5-5.5); Sodium, Blood 138 mmol/L (136-145)
--- NOTE | 2018-06-21 05:14 | NUR ---
SHIFT SUMMARY. NO ACUTE CHANGES NOTED THIS SHIFT. PT HAS BEEN ON THE BIPAP FOR APROX 2 HOURS THIS SHIFT. WHEN PT IS NOT ON BIPAP HE IS ON 2L NC WHICH HE SEEMS TO TOLERATE WELL. PT C/O OF NAUSEA AT APROX 0300 THIS AM, THIS SHORTLY PASSED, PT DENIES ANY N/V AT THIS TIME. PT DENIES ANY CHEST PAIN/PRESSURE, OR INCREASED SOB. THERE HAVE BEEN NO EVENTS ON TELE FOR THIS PT. PT WAS UP TO THE BATHROOM ONCE DURING THIS SHIFT, PT DID NOT USE THE URINAL AND STATED NO BM. PT WAS HYPERTENSIVE AT 0400 VITAL SIGNS, PT WAS MEDICATED PER EMAR WITH GOOD RESULTS. CALL LIGHT IN REACH, BED IS LOCKED AND LOW, WILL CONTINUE TO MONITOR UNTIL REPORT IS GIVEN TO ONCOMING RN.
--- NOTE | 2018-06-21 11:05 | NUR ---
Spiritual care visit conducted. Patient is sitting on the edge of his bed and alert. Patient openly shares about his jamila, his stuggles with going to an assisted living facility and his current resources. Patient stated that he is very indepentent yet does not want live in such a way that causes harm to his body. I helped patient weigh through his pros and cons of assisted living and prayed with patient about having wisdom and direction concerning these matters. Patient is talkative and therapeutic alliance appears to be established. Patient thanked me for my kindness and time.
[2018-06-21 15:25] LABS: Vancomycin, Random 21.3 ug/mL
--- NOTE | 2018-06-21 16:49 | NUR ---
Patient gives state tested nursing assistant permission to provide care on 06/21/18.
--- NOTE | 2018-06-21 17:50 | NUR ---
SHIFT SUMMARY PT ALERT AND ORIENTED. BP ELEVATED THIS SHIFT AND DR. LEMUS AWARE WITH CHANGES IN MEDICATIONS. 02 SATS HAVE REMAINED ABOVE 90% ON 1L NC. HR HAS REMAINED NSR. PT DENIES CP. PT DENIES PAIN OR DISCOMFORT. PT ABLE TO TRANSFER TO BATHROOM NEEDED WITH SBA. PT AMBULATED IN ROOM FREQUENTLY THIS SHIFT. NO OTHER CHANGES AT THIS TIME. WILL CONTINUE TO MONITOR AND REPORT TO ONCOMING RN. CALL LIGHT IN REACH.
--- NOTE | 2018-06-22 01:09 | NUR ---
PT ON BIPAP FOR APPROX 2 HOURS BEFORE REQUESTING TO TAKE IT OFF. PT OFF AND ON WEARING 1 L O2 NC. O2 SATS 91% ON RA AT THIS TIME. WILL CONTINUE TO MONITOR.
[2018-06-22 04:10] LABS: BASOPHILS PERCENT AUTO 0 % (0-2); EOSINOPHILS ABSOLUTE AUTO 0.01 K/mm3 (0.00-0.68); EOSINOPHILS PERCENT AUTO 0 % (0-6); Hematocrit 31.4 % (37.0-53.0); Hemoglobin 9.5 g/dL (13.5-17.5); IMMATURE GRAN ABSOLUTE AUTO 0.03 K/mm3 (0.00-0.10); IMMATURE GRAN PERCENT AUTO 1 % (0-1); LYMPHOCYTES ABSOLUTE AUTO 0.58 K/mm3 (0.84-5.20); LYMPHOCYTES PERCENT AUTO 18 % (21-46); MONOCYTES PERCENT AUTO 12 % (4-13); Mean Corpuscular HGB 25.9 pg (26.0-34.0); Mean Corpuscular HGB Conc 30.3 g/dL (31.5-36.5); Mean Corpuscular Volume 86 fL (80-100); Mean Platelet Volume 10.3 fL (9.1-12.4); NEUTROPHILS ABSOLUTE AUTO 2.24 K/mm3 (1.96-9.15); NEUTROPHILS PERCENT AUTO 69 % (41-73); Platelet Count 69 K/mm3 (150-400); RDW Standard Deviation 65.3 fL (35.1-46.3); Red Blood Cell Count 3.67 M/mm3 (4.30-5.90); White Blood Cell Count 3.26 K/mm3 (4.00-11.30)
[2018-06-22 04:30] LABS: Albumin, Blood 3.2 g/dL (3.4-5.0); Anion Gap 6 mmol/L (6-16); Blood Urea Nitrogen 79 mg/dL (8-24); Bun/Creatinine Ratio 21.8 (12.0-20.0); CO2, Blood 33 mmol/L (21-32); Calcium, Blood 8.7 mg/dL (8.5-10.1); Chloride, Blood 99 mmol/L (98-108); Creatinine, Blood 3.63 mg/dL (0.60-1.20); Glomerular Filtration Rate 18 (60-); Glucose, Blood 115 mg/dL (70-99); Phosphorus, Blood 4.8 mg/dL (2.5-4.9); Potassium, Blood 4.9 mmol/L (3.5-5.5); Sodium, Blood 138 mmol/L (136-145)
--- NOTE | 2018-06-22 05:10 | NUR ---
SHIFT SUMMARY PT ABLE WORE BIPAP OFF AND ON THROUGHOUT THE NIGHT. WEARING FOR APPROX 2 HOURS AT A TIME EACH TIME. ATIVAN REQUESTED BEFORE BED TO ASSIST IN WEARING THE MASK. PT PLEASANT AND COOPERATIVE, HOWEVER, PT FLAT AND APPEARS DEPRESSED. BREATHING MORE LABORED AT TIMES, ESPECIALLY WITH AMBULATION. PT REMOVES O2 AT TIMES WHEN WEARING NC. ON 1 L O2 WITH NC. PT REPORTED "NORMAL" BOWEL MOVEMENT, FORMED BUT SOFT AND BROWN. UP TO VOID WITH SBA, MOSTLY STEADY ON FEET. PT DENIED PAIN THIS EVENING. BLOOD PRESSURE REMAINS HYPERTENSIVE, OTHERWISE VITAL SIGNS STABLE. NO ACUTE CHANGES THIS SHIFT. WILL CONTINUE TO MONITOR. CALL LIGHT WITHIN REACH.
--- NOTE | 2018-06-22 09:30 | NUR ---
PT TAKEN TO DIALYSIS. WILL AWAIT RETURN.
--- NOTE | 2018-06-22 13:26 | NUR ---
Patient just arrived back in his room after dialysis. Patient shares a concern that perhaps he is getting the wrong medications because he feels that he is not improving. I encourage patient to speak with the doctors about this. Patient also admits that he is feeling down this day and that dialysis took a lot out of him so this may color his view. I listened empathically, provided companionship and provided prayer. Patient responded well to the prayer and stated that it was meaningful to him.
--- NOTE | 2018-06-22 19:32 | NUR ---
SHIFT SUMMARY PT ALERT AND ORIENTED. O2 SATS HAVE REMAINED ABOVE 90% ON 1L NC. BP ELEVATED AT BEGINNING OF SHIFT, BUT HAS IMPROVED WITH MEDICATION ADMINISTRATION. PT HAD DIALYSIS TODAY. PT UPSET AFTER DIALYSIS AND WANTED TO GO OUTSIDE. THIS RN SPOKE WITH THE PT ABOUT RISK OF GOING OUTSIDE AND THAT I CANNOT MONITOR HIM IF HE DOES SO. PT LISTENED TO RISKS AND WENT OUT IN WHEELCHAIR WITH A FRIEND. PT INFORMED OF RISK IF HE WERE TO SMOKE OR GO ANYWHERE NEAR SMOKING AREA WITH OXYGEN IN PLACE. PT STATES HE WILL NOT SMOKE. PT RETURNED TO ROOM AFTER BEING OUTSIDE FOR 15 MIN. REPORT GIVEN TO ELECTRIC LOCOMOTIVE CRANE OPERATOR RN.
--- NOTE | 2018-06-23 05:26 | NUR ---
SHIFT SUMMARY: PT A&O X4. BP ELEAVTED T/O SHIFT. GIVEN APRESOLINE WITH BP OF 172/80. BP NOW AT 168/82. O2 SATS ABOVE 90% ON 1L OF O2 PER NC. USING BIPAP T/O NIGHT. NSR PER VENDETTE. PT DENIES CP AND SOB. APPEARS TO BE RESTING COMFORTABLY. SBA FOR ALL AMBULATION. USING CALL LIGHT APPROPRIATLY.
--- NOTE | 2018-06-23 07:34 | NUR ---
ASSUMED CARE OF PT- RECIEVED REPORT FROM NIGHT DEVENDRA RAMIREZ. PER REPORT PT STABLE POSSIBLY ABLE TO SWITCH TO MEDICAL STATUS LATER TODAY. PT ALERT AND ORIENTED SBA FOR ALL AMBULATION FOR SAFETY, PT CALLS APPROPRIATELY, NO S&S OF DISTRESS, NO C/O PAIN. WILL CTM.
--- NOTE | 2018-06-23 11:18 | NUR ---
STEFANIE NOTE- CALLED AND GAVE TELEPHONE REPORT TO DEVENDRA MANUEL. PT MEDICATED FOR NAUSEA PRIOR TO TRANSFER WITH OT DOSE OF ZOFRAN. NO FURTHER QUESTIONS AT THE TIME OF REPORT.
--- NOTE | 2018-06-23 11:55 | NUR ---
5299 TRANSFER TO [facility] PATIENT ARRIVED VIA WHEELCHAIR. PATIENT STATES JUST DOESNT FEEL WELL IN GENERAL BUT NO SPECIFIC AREAS OF PAIN. PATIENT REPORTS NAUSEA IS RESOLVING. PERMACATH IN PLACE TO RIGHT CHEST. PATIENT ORIENTED TO NEW ROOM
--- NOTE | 2018-06-23 12:15 | NUR ---
LATE ENTRY-TURNOVER REPORT GIVEN TO DEVENDRA MANUEL WHO STATES NO FURTHER QUESTIONS AT 1100. PT IN STABLE CONDITION. PT TO BE DC'ED TODAY. MESSAGE LEFT WITH MITALI TO CALL BACK THIS RN.
--- NOTE | 2018-06-23 12:29 | NUR ---
[address] PER WHEELCHAIR
--- NOTE | 2018-06-23 13:40 | NUR ---
[address] ROOM FROM [address] PATIENT DENIES ANY NEEDS OR CONCERNS
--- NOTE | 2018-06-23 13:52 | NUR ---
Spiritual care visit conducted. Patient is sitting up in bed and alert. Patient immediately shares that he is not convinced that he is feeling better but hopes that is true. After some probing patient does admit that he is a little bit stronger. Patient left a bag of slippers in his PCU room so I brought them to the patient. I liatened to patient, provided companionship and normalized patient's experience. Patient thanked me for the visit.
--- NOTE | 2018-06-23 17:56 | NUR ---
SUMMARY PATIENT SLEPT MOST OF AFTERNOON AND STATES HE FEELS BETTER AFTER A NAP. PATIENT DENIES ANY SPECIFIC PAIN BUT TELLS ME HE JUST FEELS WEAK, TIRED AND DOESNT FEEL WELL.
--- NOTE | 2018-06-23 22:59 | NUR ---
SPOKE TO DR ANDREA REGARDING PATIENT REQUEST FOR DAILY METAMUCIL HE TAKES AT HOME. RECVD ORDER.
--- NOTE | 2018-06-24 02:49 | NUR ---
SPOKE TO DR GODINEZ REGARDING PT NAUSEA, ZOFRAN HAD BEEN D/C'D. RECVD ORDER FOR 1X DOSE NOW
[2018-06-24 09:54] LABS: Hematocrit 30.2 % (37.0-53.0); Mean Corpuscular HGB 25.8 pg (26.0-34.0); Mean Corpuscular HGB Conc 29.8 g/dL (31.5-36.5); Mean Corpuscular Volume 87 fL (80-100); Mean Platelet Volume 9.8 fL (9.1-12.4); Platelet Count 65 K/mm3 (150-400); RDW Coefficient Variation 20.6 % (11.7-14.2); Red Blood Cell Count 3.49 M/mm3 (4.30-5.90); White Blood Cell Count 4.79 K/mm3 (4.00-11.30)
[2018-06-24 10:18] LABS: Albumin, Blood 3.1 g/dL (3.4-5.0); Anion Gap 6 mmol/L (6-16); Blood Urea Nitrogen 71 mg/dL (8-24); Bun/Creatinine Ratio 22.2 (12.0-20.0); CO2, Blood 33 mmol/L (21-32); Calcium, Blood 8.4 mg/dL (8.5-10.1); Chloride, Blood 101 mmol/L (98-108); Glomerular Filtration Rate 21 (60-); Glucose, Blood 144 mg/dL (70-99); Phosphorus, Blood 4.5 mg/dL (2.5-4.9); Potassium, Blood 4.2 mmol/L (3.5-5.5); Sodium, Blood 140 mmol/L (136-145)
--- NOTE | 2018-06-24 10:43 | NUR ---
DIALYSIS RECIEVED PT'S LAB RESULTS. NA 140 DEC GOAL. POTASSIUM 4.2 DEC DIALYSATE TO [place]. PT SAID HE IS ALITTLE DEPRESSED DID NOT WANT TO RUN 3 HOURS CHANGED TO 2.5 HRS
--- NOTE | 2018-06-24 16:11 | NUR ---
SHIFT SUMMARY 58 YR OLD MALE ADMITTED FOR ACUTE HYPOXEMIC RESPIRATORY FAILURE. PNEUMONIA/FLUID OVERLOAD. FULL CODE STATUS. DIALYSIS PT. A&O X4. RENAL DIET. CAN BE INDEPENDENT IN ROOM W/FWW OR WHEELCHAIR. DIALYSIS PERFORMED TODAY. QUIT SMOKING 5 DAYS AGO. MEDS TAKEN WHOLE. PERMACATH IN RT CHEST FOR DIALYSIS ONLY. NO URINARY OUTPUT. IV ZOFRAN NOW AVAILABLE PRN Q 6 HRS FOR NAUSEA. 20 IV IN LEFT FOREARM, SALINE LOCKED. LIVES @ [place] [id number]. HX: COPD, HTN, CHF. PT STATES HE ONLY USES USES BIPAP AT NIGHT PRN. MICROBIOLOGY: BLOOD CULTURES SHOW NO GROWTH ON FIFTH DAY. PROCALCITONIN WAS 0.68 ON ADMIT, TODAY IS 0.22 ( <0.05 IS WNL).
[2018-06-25 07:53] LABS: BASOPHILS PERCENT AUTO 0 % (0-2); EOSINOPHILS ABSOLUTE AUTO 0.07 K/mm3 (0.00-0.68); EOSINOPHILS PERCENT AUTO 1 % (0-6); Hematocrit 31.1 % (37.0-53.0); Hemoglobin 9.3 g/dL (13.5-17.5); IMMATURE GRAN ABSOLUTE AUTO 0.09 K/mm3 (0.00-0.10); IMMATURE GRAN PERCENT AUTO 2 % (0-1); LYMPHOCYTES ABSOLUTE AUTO 1.36 K/mm3 (0.84-5.20); LYMPHOCYTES PERCENT AUTO 27 % (21-46); MONOCYTES ABSOLUTE AUTO 0.62 K/mm3 (0.16-1.47); MONOCYTES PERCENT AUTO 12 % (4-13); Mean Corpuscular HGB 25.8 pg (26.0-34.0); Mean Corpuscular HGB Conc 29.9 g/dL (31.5-36.5); Mean Corpuscular Volume 86 fL (80-100); Mean Platelet Volume 10.4 fL (9.1-12.4); NEUTROPHILS ABSOLUTE AUTO 2.86 K/mm3 (1.96-9.15); NEUTROPHILS PERCENT AUTO 57 % (41-73); Platelet Count 74 K/mm3 (150-400); RDW Standard Deviation 66.8 fL (35.1-46.3); Red Blood Cell Count 3.61 M/mm3 (4.30-5.90)
[2018-06-25 08:00] LABS: Albumin, Blood 3.2 g/dL (3.4-5.0); Anion Gap 5 mmol/L (6-16); Blood Urea Nitrogen 52 mg/dL (8-24); Bun/Creatinine Ratio 17.1 (12.0-20.0); CO2, Blood 34 mmol/L (21-32); Calcium, Blood 8.6 mg/dL (8.5-10.1); Chloride, Blood 101 mmol/L (98-108); Creatinine, Blood 3.04 mg/dL (0.60-1.20); Glomerular Filtration Rate 23 (60-); Glucose, Blood 101 mg/dL (70-99); Magnesium, Blood 2.2 mg/dL (1.6-2.4); Phosphorus, Blood 3.6 mg/dL (2.5-4.9); Potassium, Blood 4.5 mmol/L (3.5-5.5); Sodium, Blood 140 mmol/L (136-145)
--- NOTE | 2018-06-25 17:51 | NUR ---
SHIFT SUMMARY 58 YR OLD ADMITTED FOR ACUTE HYPOXEMIC RESP FAILURE. FULL CODE. PERMACATH IN RT CHEST FOR DIALYSIS. PAIN PUMP IN LLQ FOR PAIN SPECIALIST ACCESS ONLY. PANDYA IS FOLLOWING. IV ANTIBIOTICS. RENAL DIET. HTN IS CONTROLLED W/PO MEDS. A&O X 4. ANTICIPATING DISCHARGE 24-48 HRS. LIVES AT [facility] [facility]. USES BIPAP PRN AT NIGHT. INDEPENDENT W/FWW OR WHEELCHAIR. TROUBLE AMBULATING LONG DISTANCES. SKIN IS ECCHYMOTIC/SCABS/DRY. MEDS TAKEN WHOLE. PT REFUSES BLADDER SCAN.
[2018-06-26 05:29] LABS: Hematocrit 32.1 % (37.0-53.0); Hemoglobin 9.5 g/dL (13.5-17.5)
[2018-06-26 05:51] LABS: Magnesium, Blood 2.3 mg/dL (1.6-2.4)
[2018-06-26 05:52] LABS: Albumin, Blood 3.2 g/dL (3.4-5.0); Anion Gap 7 mmol/L (6-16); Blood Urea Nitrogen 64 mg/dL (8-24); Bun/Creatinine Ratio 18.7 (12.0-20.0); CO2, Blood 30 mmol/L (21-32); Calcium, Blood 8.7 mg/dL (8.5-10.1); Chloride, Blood 102 mmol/L (98-108); Creatinine, Blood 3.42 mg/dL (0.60-1.20); Glomerular Filtration Rate 20 (60-); Glucose, Blood 136 mg/dL (70-99); Phosphorus, Blood 3.7 mg/dL (2.5-4.9); Potassium, Blood 4.7 mmol/L (3.5-5.5); Sodium, Blood 139 mmol/L (136-145)
--- NOTE | 2018-06-26 07:46 | NUR ---
06/26/18 0600 VITALS STABLE. MEDICATED ONCE FOR NAUSEA WITH RELIEF. TAKING ORAL INTAKE WELL. UNEVENTFUL NIGHT.
[2018-06-26 15:10] LABS: Creatinine, Blood 3.42 mg/dL (0.60-1.20)
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
--- NOTE | 2018-06-27 05:21 | NUR ---
SHORT STORY WRITER SUMMARY NO ACUTE CHANGES THIS SHIFT. PT AAOX4 AND COOPERATIVE WITH CARE. DENIES PAIN, SOB. TREATED FOR NAUSEA X1 WITH ZOFRAN WITH GOOD RELIEF. PT INDEPENDENT TO WHEELCHAIR AND GOES OUTSIDE AT TIMES. DR PANDYA IN TO SEE PT LATE TONIGHT, NO NEW ORDERS RECIEVED AT THIS TIME. VSS, WILL CONTINUE TO MONITOR.
[2018-06-27 05:32] LABS: Hematocrit 30.2 % (37.0-53.0)
[2018-06-27 06:07] LABS: Magnesium, Blood 2.3 mg/dL (1.6-2.4)
[2018-06-27 06:09] LABS: Albumin, Blood 3.2 g/dL (3.4-5.0); Anion Gap 7 mmol/L (6-16); Blood Urea Nitrogen 71 mg/dL (8-24); Bun/Creatinine Ratio 19.5 (12.0-20.0); CO2, Blood 31 mmol/L (21-32); Calcium, Blood 8.6 mg/dL (8.5-10.1); Chloride, Blood 102 mmol/L (98-108); Creatinine, Blood 3.64 mg/dL (0.60-1.20); Glomerular Filtration Rate 18 (60-); Glucose, Blood 110 mg/dL (70-99); Phosphorus, Blood 4.2 mg/dL (2.5-4.9); Sodium, Blood 140 mmol/L (136-145)
--- NOTE | 2018-06-27 08:35 | NUR ---
ZOFRAN GIVEN FOR CHRONIC NAUSEA. EATING BREAKFAST NOW. DIALYSIS AROUND 9 AM TODAY.
--- NOTE | 2018-06-27 09:52 | NUR ---
PATIENT WAS OFFERED A SHOWER AND DECLINED HE WAS GOING TO DIALYSYS AND THEN WAS GOING TO BE POSSIBLY DISCHARGED AND WOULD RATHER TAKE ONE AT HOME THAN HERE.
[2018-06-27] MEDS ORDERED: FURO80 PO (14:15)
[2018-06-27] MEDS ORDERED: METO25 PO (14:17)
[2018-06-27] MEDS ORDERED: PRED20 PO (14:19)
[2018-06-27] MEDS ORDERED: Calcium Acetat667 MG PO (14:21)
[2018-06-27] MEDS ORDERED: HYDR10 PO (14:22)
[2018-06-27] MEDS ORDERED: LEVO750 PO (14:23)
--- NOTE | 2018-06-27 16:31 | NUR ---
DISCHARGED TO HOME WITH BELONGINGS AND INSTRUCTIONS AT 1610. HE SAID HE HAD A BOX OF HOME MEDICATIONS HERE. WHEN NOT FOUND IN THE PHARMACY, HIS ROOM OR IN PCU HE ADMITS THEY MAY BE IN HIS CAR IN THE PARKING LOT. I GAVE HIM THE NUMBER TO THE PATIENT [employer] IF HE DOES NOT FIND THEM. HE HAS HAD A GOOD DAY. NO MORE PRN'S AFTER THIS MORNING'S ZOFRAN. HE DIALIZED WELL. HE ATE WELL. HE WAS VERY ACTIVE, SPENDING 1/2 HIS TIME TODAY OUT AND ABOUT IN THE W/C.
== END 2018-06-27 16:20 | disposition home or self-care (01) | DRG 193 ==
LOC: ER 08:04 → PCU 10:33 → MEDS 10:33 → ERHOLD 10:33 → PCU 15:48 → MEDS 06-23 11:38 → ENPENDDIS 06-27 14:44 → MEDS 06-27 16:20
PROVIDERS: Emergency Medicine; Internal Medicine; Internal Medicine Nephrology; ADMIT Internal Medicine
PROC: 5A1D70Z Performance of Urinary Filtration, Intermittent, Less than 6 Hours Per Day (ICD-10-PCS; principal; 2018-06-19)
PROC: 5A1D70Z Performance of Urinary Filtration, Intermittent, Less than 6 Hours Per Day (ICD-10-PCS; 2018-06-21)
PROC: 5A1D70Z Performance of Urinary Filtration, Intermittent, Less than 6 Hours Per Day (ICD-10-PCS; 2018-06-23)
PROC: 30233N1 Transfusion of Nonautologous Red Blood Cells into Peripheral Vein, Percutaneous Approach (ICD-10-PCS; 2018-06-23)
PROC: 5A1D70Z Performance of Urinary Filtration, Intermittent, Less than 6 Hours Per Day (ICD-10-PCS; 2018-06-25)
PROC: 5A1D70Z Performance of Urinary Filtration, Intermittent, Less than 6 Hours Per Day (ICD-10-PCS; 2018-06-27)
DX: J18.9 Pneumonia, unspecified organism (principal); J96.01 Acute respiratory failure with hypoxia; N18.6 End stage renal disease; J44.1 Chronic obstructive pulmonary disease with (acute) exacerbation; D69.0 Allergic purpura; I13.2 Hypertensive heart and chronic kidney disease with heart failure and with stage 5 chronic kidney disease, or end stage renal disease; I50.32 Chronic diastolic (congestive) heart failure; N17.9 Acute kidney failure, unspecified; M31.0 Hypersensitivity angiitis; J44.0 Chronic obstructive pulmonary disease with (acute) lower respiratory infection; Z99.81 Dependence on supplemental oxygen; D63.1 Anemia in chronic kidney disease; Z99.2 Dependence on renal dialysis; N05.7 Unspecified nephritic syndrome with diffuse crescentic glomerulonephritis; D69.6 Thrombocytopenia, unspecified; Z87.898 Personal history of other specified conditions; L40.9 Psoriasis, unspecified; I35.1 Nonrheumatic aortic (valve) insufficiency; Z59.0 Homelessness; I73.9 Peripheral vascular disease, unspecified; F17.210 Nicotine dependence, cigarettes, uncomplicated
CPT/HCPCS: 36415; 71045; 71046; 71250; 80053; 80069; 80202; 82565; 82803; 83735; 83880; 84145; 84484; 85014; 85018; 85025; 85027; 87040; 87070; 87205; 93005; 93010; 94640; 94644; 94660; 94667; 94761; 94762; 96374; 96375; 99285-25; J0360; J0692; J0881; J1644; J1940; J2060; J2405; J2930; J3370; J7050; J7512

== ENCOUNTER 2018-08-21 17:38 | Emergency (ER) | payer MEDICARE ==
[~2018-08-21] VITALS: Ht 172.7 cm; Wt 82.5 kg
[~2018-08-21 17:38] MED LIST changes: +ANORO ELLIPTA1 EACH INH; +Calcium Acetat667 MG PO; +FOLI1 PO; +FURO80 PO; +HYDR10 PO; +PRED20 PO
[2018-08-21 18:37] LABS: BASOPHILS ABSOLUTE AUTO 0.02 K/mm3 (0.00-0.23); BASOPHILS PERCENT AUTO 0 % (0-2); EOSINOPHILS ABSOLUTE AUTO 0.05 K/mm3 (0.00-0.68); EOSINOPHILS PERCENT AUTO 1 % (0-6); Hematocrit 31.2 % (37.0-53.0); Hemoglobin 9.7 g/dL (13.5-17.5); IMMATURE GRAN ABSOLUTE AUTO 0.36 K/mm3 (0.00-0.10); IMMATURE GRAN PERCENT AUTO 3 % (0-1); LYMPHOCYTES PERCENT AUTO 8 % (21-46); MONOCYTES ABSOLUTE AUTO 0.31 K/mm3 (0.16-1.47); MONOCYTES PERCENT AUTO 3 % (4-13); Mean Corpuscular HGB 28.1 pg (26.0-34.0); Mean Corpuscular HGB Conc 31.1 g/dL (31.5-36.5); Mean Corpuscular Volume 90 fL (80-100); NEUTROPHILS ABSOLUTE AUTO 9.31 K/mm3 (1.96-9.15); NEUTROPHILS PERCENT AUTO 85 % (41-73); Platelet Count 154 K/mm3 (150-400); RDW Coefficient Variation 14.9 % (11.7-14.2); RDW Standard Deviation 49.1 fL (35.1-46.3); Red Blood Cell Count 3.45 M/mm3 (4.30-5.90); White Blood Cell Count 10.95 K/mm3 (4.00-11.30)
[2018-08-21 18:53] LABS: International Normalized Ratio 0.92; Prothrombin Time Results 9.8 Sec (9.7-11.5)
[2018-08-21 18:59] LABS: Albumin, Blood 3.2 g/dL (3.4-5.0); Bilirubin, Total 0.4 mg/dL (0.1-1.0); Bun/Creatinine Ratio 21.7 (12.0-20.0); Calcium, Blood 8.2 mg/dL (8.5-10.1); Creatinine, Blood 2.3 mg/dL (0.60-1.20); Globulin, Blood 3.1 g/dL (2.2-4.0); Potassium, Blood 4.9 mmol/L (3.5-5.5); Total Protein, Blood 6.3 g/dL (6.4-8.2)
== END 2018-08-21 21:39 | disposition home or self-care (01) ==
LOC: ER 17:38
PROVIDERS: Physician Assistant
DX: J40 Bronchitis, not specified as acute or chronic (principal); Z88.0 Allergy status to penicillin; Z88.8 Allergy status to other drugs, medicaments and biological substances; Z91.048 Other nonmedicinal substance allergy status; Z79.899 Other long term (current) drug therapy; Z79.52 Long term (current) use of systemic steroids; J44.9 Chronic obstructive pulmonary disease, unspecified; E78.5 Hyperlipidemia, unspecified; D64.9 Anemia, unspecified; F17.200 Nicotine dependence, unspecified, uncomplicated
CPT/HCPCS: 36415; 71046; 80053; 83880; 85025; 85610; 85730; 93005; 93010; 99284-25

== ENCOUNTER → 2018-08-30 | Outpatient (CLI) | payer MEDICARE ==
[2018-08-30 16:02] LABS: BASOPHILS ABSOLUTE AUTO 0.05 K/mm3 (0.00-0.23); BASOPHILS PERCENT AUTO 0 % (0-2); EOSINOPHILS ABSOLUTE AUTO 0.08 K/mm3 (0.00-0.68); EOSINOPHILS PERCENT AUTO 1 % (0-6); Hematocrit 34.5 % (37.0-53.0); Hemoglobin 10.5 g/dL (13.5-17.5); IMMATURE GRAN PERCENT AUTO 2 % (0-1); LYMPHOCYTES ABSOLUTE AUTO 0.85 K/mm3 (0.84-5.20); LYMPHOCYTES PERCENT AUTO 6 % (21-46); MONOCYTES ABSOLUTE AUTO 0.59 K/mm3 (0.16-1.47); MONOCYTES PERCENT AUTO 4 % (4-13); Mean Corpuscular HGB 28.1 pg (26.0-34.0); Mean Corpuscular HGB Conc 30.4 g/dL (31.5-36.5); Mean Corpuscular Volume 92 fL (80-100); Mean Platelet Volume 11.2 fL (9.1-12.4); NEUTROPHILS PERCENT AUTO 87 % (41-73); Platelet Count 168 K/mm3 (150-400); RDW Standard Deviation 50.7 fL (35.1-46.3); Red Blood Cell Count 3.74 M/mm3 (4.30-5.90); White Blood Cell Count 13.47 K/mm3 (4.00-11.30)
[2018-08-30 16:15] LABS: Albumin, Blood 3.2 g/dL (3.4-5.0); Albumin/Globulin Ratio 0.9 (0.8-1.8); Bilirubin, Total 0.3 mg/dL (0.1-1.0); Bun/Creatinine Ratio 21.6 (12.0-20.0); Calcium, Blood 8.7 mg/dL (8.5-10.1); Creatinine, Blood 2.22 mg/dL (0.60-1.20); Globulin, Blood 3.5 g/dL (2.2-4.0); Potassium, Blood 4.9 mmol/L (3.5-5.5); Total Protein, Blood 6.7 g/dL (6.4-8.2)
== END ==
LOC: LAB 14:05 → LAB SHORT 14:05
PROVIDERS: Nurse Practitioner
DX: M54.5 Low back pain (principal)
CPT/HCPCS: 80053; 85025

== ENCOUNTER → 2018-10-18 | Outpatient (CLI) | payer MEDICARE, OTHER ==
[2018-10-18 15:59] LABS: Creatinine Urine 54.1 mg/dL (27.00-270.00); Protein, Urine Quantitative 73.8 mg/dL (0.0-11.9)
== END | disposition home or self-care (01) ==
LOC: LAB 14:00 → LAB SHORT 14:00
PROVIDERS: Internal Medicine
DX: N18.3 Chronic kidney disease, stage 3 (moderate) (principal)
CPT/HCPCS: 81050; 82570; 84156

== ENCOUNTER → 2019-01-08 | Outpatient (CLI) | payer MEDICARE, OTHER ==
[2019-01-08 13:56] LABS: Creatinine, Blood 2.43 mg/dL (0.60-1.20)
== END | disposition home or self-care (01) ==
LOC: LAB SHORT 13:21 → LAB 13:21
DX: R53.83 Other fatigue (principal)
CPT/HCPCS: 82565; 84520

== ENCOUNTER 2020-04-04 10:59 | Emergency (ER) | payer MEDICARE ==
[~2020-04-04] VITALS: Ht 167.6 cm; Wt 77.1 kg
[2020-04-04 11:57] LABS: BASOPHILS ABSOLUTE AUTO 0.06 K/mm3 (0.00-0.23); BASOPHILS PERCENT AUTO 1 % (0-2); EOSINOPHILS ABSOLUTE AUTO 0.23 K/mm3 (0.00-0.68); EOSINOPHILS PERCENT AUTO 4 % (0-6); Hematocrit 34.1 % (37.0-53.0); Hemoglobin 10.5 g/dL (13.5-17.5); IMMATURE GRAN ABSOLUTE AUTO 0.01 K/mm3 (0.00-0.10); IMMATURE GRAN PERCENT AUTO 0 % (0-1); LYMPHOCYTES ABSOLUTE AUTO 1.08 K/mm3 (0.84-5.20); LYMPHOCYTES PERCENT AUTO 20 % (21-46); MONOCYTES PERCENT AUTO 10 % (4-13); Mean Corpuscular HGB 27.6 pg (26.0-34.0); Mean Corpuscular HGB Conc 30.8 g/dL (31.5-36.5); Mean Corpuscular Volume 90 fL (80-100); Mean Platelet Volume 10.7 fL (9.1-12.4); NEUTROPHILS ABSOLUTE AUTO 3.41 K/mm3 (1.96-9.15); NEUTROPHILS PERCENT AUTO 65 % (41-73); Platelet Count 117 K/mm3 (150-400); RDW Coefficient Variation 13.4 % (11.7-14.2); RDW Standard Deviation 44.4 fL (35.1-46.3); White Blood Cell Count 5.29 K/mm3 (4.00-11.30)
[2020-04-04 12:21] LABS: Alanine Aminotransfer (ALT/SGP 16 U/L (12-78); Albumin, Blood 3.3 g/dL (3.4-5.0); Albumin/Globulin Ratio 0.9 (0.8-1.8); Alk Phos 70 U/L (50-136); Anion Gap 2 mmol/L (6-16); Aspartate Aminotrans (AST/SGOT 13 U/L (12-37); Bilirubin, Total 0.3 mg/dL (0.1-1.0); Blood Urea Nitrogen 38 mg/dL (8-24); Bun/Creatinine Ratio 14.8 (12.0-20.0); CO2, Blood 29 mmol/L (21-32); Calcium, Blood 8.2 mg/dL (8.5-10.1); Chloride, Blood 109 mmol/L (98-108); Creatinine, Blood 2.56 mg/dL (0.60-1.20); Globulin, Blood 3.7 g/dL (2.2-4.0); Glomerular Filtration Rate 27 (60-); Glucose, Blood 127 mg/dL (70-99); Potassium, Blood 4.4 mmol/L (3.5-5.5); Sodium, Blood 140 mmol/L (136-145); Troponin I <0.015 ng/mL (0.000-0.040)
[2020-04-04 13:42] LABS: Source, Urine Clean Catch
[2020-04-04 14:07] LABS: Appearance, Urine Clear (Clear); Bilirubin, Urine Neg (Neg); Blood, Urine 1+ (Neg); Color, Urine Yellow (P-Yellow); Glucose Qualitative, Urine Neg (Neg); Ketones, Urine Neg (Neg); Leukocyte Esterase, Urine 1+ (Neg); Nitrite, Urine Neg (Neg); Protein, Urine Neg (Neg); Urobilinogen, Urine NORM (Normal)
[2020-04-04 14:48] LABS: Bacteria Not Seen /hpf; Red Blood Cells, Urine 0-2 /hpf (0-2); Squamous Epithelial Cells Few /hpf (Few)
[2020-04-04] MEDS ORDERED: ONDA4ODT MM (15:26)
== END 2020-04-04 15:35 | disposition home or self-care (01) ==
LOC: ER 10:59
PROVIDERS: Emergency Medicine
DX: B34.9 Viral infection, unspecified (principal); J44.9 Chronic obstructive pulmonary disease, unspecified; E78.5 Hyperlipidemia, unspecified; F17.200 Nicotine dependence, unspecified, uncomplicated; Z79.899 Other long term (current) drug therapy
CPT/HCPCS: 36415; 71045; 80053; 81001; 84484; 85025; 87086; 93005; 93010; 96374; 99284-25; J2405; J2704

== ENCOUNTER 2020-09-06 10:55 | Emergency (ER) | payer MEDICARE ==
[~2020-09-06] VITALS: Ht 170.2 cm; Wt 79.4 kg
[~2020-09-06 10:55] MED LIST changes: +ONDA4ODT MM
[2020-09-06 11:49] LABS: BASOPHILS ABSOLUTE AUTO 0.06 K/mm3 (0.00-0.23); BASOPHILS PERCENT AUTO 1 % (0-2); EOSINOPHILS ABSOLUTE AUTO 0.29 K/mm3 (0.00-0.68); EOSINOPHILS PERCENT AUTO 4 % (0-6); Hematocrit 38.3 % (37.0-53.0); Hemoglobin 12.4 g/dL (13.5-17.5); IMMATURE GRAN ABSOLUTE AUTO 0.02 K/mm3 (0.00-0.10); IMMATURE GRAN PERCENT AUTO 0 % (0-1); LYMPHOCYTES ABSOLUTE AUTO 1.32 K/mm3 (0.84-5.20); LYMPHOCYTES PERCENT AUTO 18 % (21-46); MONOCYTES PERCENT AUTO 8 % (4-13); Mean Corpuscular HGB 27.5 pg (26.0-34.0); Mean Corpuscular HGB Conc 32.4 g/dL (31.5-36.5); Mean Corpuscular Volume 85 fL (80-100); Mean Platelet Volume 10.8 fL (9.1-12.4); NEUTROPHILS ABSOLUTE AUTO 4.94 K/mm3 (1.96-9.15); NEUTROPHILS PERCENT AUTO 68 % (41-73); Platelet Count 154 K/mm3 (150-400); RDW Coefficient Variation 13.2 % (11.7-14.2); RDW Standard Deviation 41.1 fL (35.1-46.3); Red Blood Cell Count 4.51 M/mm3 (4.30-5.90); White Blood Cell Count 7.23 K/mm3 (4.00-11.30)
[2020-09-06 11:54] LABS: Albumin, Blood 3.4 g/dL (3.4-5.0); Albumin/Globulin Ratio 0.8 (0.8-1.8); Bilirubin, Total 0.4 mg/dL (0.1-1.0); Bun/Creatinine Ratio 18.6 (12.0-20.0); Creatinine, Blood 2.91 mg/dL (0.60-1.20); Globulin, Blood 4.4 g/dL (2.2-4.0); Potassium, Blood 3.7 mmol/L (3.5-5.5); Total Protein, Blood 7.8 g/dL (6.4-8.2)
[2020-09-06 13:39] LABS: Source, Urine Clean Catch
[2020-09-06 13:43] LABS: Bilirubin, Urine Neg (Neg); Blood, Urine 5+ (Neg); Color, Urine Yellow (P-Yellow); Glucose Qualitative, Urine Neg (Neg); Ketones, Urine Neg (Neg); Leukocyte Esterase, Urine 2+ (Neg); Nitrite, Urine Neg (Neg); Protein, Urine 2+ (Neg); Urobilinogen, Urine NORM (Normal)
[2020-09-06 13:51] LABS: Appearance, Urine Hazy (Clear)
[2020-09-06 13:57] LABS: Red Blood Cells, Urine 50-100 /hpf (0-2); Squamous Epithelial Cells Mod /hpf (Few)
[2020-09-06 13:58] LABS: Bacteria Mod /hpf
[2020-09-06] MEDS ORDERED: ROPI.25 PO (16:57)
== END 2020-09-06 17:15 | disposition home or self-care (01) ==
LOC: ER 10:55
PROVIDERS: Physician Assistant
DX: R11.2 Nausea with vomiting, unspecified (principal); R53.1 Weakness; J44.9 Chronic obstructive pulmonary disease, unspecified; E78.5 Hyperlipidemia, unspecified; F17.200 Nicotine dependence, unspecified, uncomplicated
CPT/HCPCS: 36415; 74176; 80053; 81001; 83690; 85025; 87086; 96374; 96375; 99284-25; J2270; J2405; J2765; J7030

== ENCOUNTER 2020-09-08 01:16 | Emergency (ER) | payer MEDICARE ==
[~2020-09-08 01:16] MED LIST changes: +ROPI.25 PO
== END 2020-09-08 01:45 | disposition left against medical advice (07) ==
LOC: ER 01:16
DX: R10.9 Unspecified abdominal pain (principal); Z98.890 Other specified postprocedural states; Z53.29 Procedure and treatment not carried out because of patient's decision for other reasons

== ENCOUNTER 2020-09-08 02:16 | Emergency (ER) | payer MEDICARE | END 2020-09-08 04:00 | disposition left against medical advice (07) | LOC: ER 02:16 | DX: R10.9 Unspecified abdominal pain (principal); Z98.890 Other specified postprocedural states; Z53.21 Procedure and treatment not carried out due to patient leaving prior to being seen by health care provider ==

== ENCOUNTER 2020-12-05 19:52 | Emergency (ER) | payer MEDICARE ==
[~2020-12-05] VITALS: Ht 170.2 cm; Wt 77.1 kg
[2020-12-05 20:39] LABS: Source, Urine Clean Catch
[2020-12-05 20:42] LABS: Appearance, Urine Hazy (Clear); Bilirubin, Urine Neg (Neg); Blood, Urine 5+ (Neg); Color, Urine Yellow (P-Yellow); Glucose Qualitative, Urine Neg (Neg); Ketones, Urine Neg (Neg); Leukocyte Esterase, Urine 3+ (Neg); Nitrite, Urine Neg (Neg); Protein, Urine 3+ (Neg); Urobilinogen, Urine NORM (Normal)
[2020-12-05 20:51] LABS: Bacteria Mod /hpf; Red Blood Cells, Urine 50-100 /hpf (0-2)
[2020-12-05 20:52] LABS: Squamous Epithelial Cells Rare /hpf (Few)
[2020-12-05 21:00] LABS: Albumin, Blood 3.1 g/dL (3.4-5.0); Albumin/Globulin Ratio 0.8 (0.8-1.8); Bilirubin, Total 0.2 mg/dL (0.1-1.0); Bun/Creatinine Ratio 9.5 (12.0-20.0); Calcium, Blood 7.1 mg/dL (8.5-10.1); Creatinine, Blood 4.93 mg/dL (0.60-1.20); Globulin, Blood 4.1 g/dL (2.2-4.0); Potassium, Blood 5.6 mmol/L (3.5-5.5); Total Protein, Blood 7.2 g/dL (6.4-8.2)
[2020-12-05 21:04] LABS: BASOPHILS ABSOLUTE AUTO 0.05 K/mm3 (0.00-0.23); BASOPHILS PERCENT AUTO 1 % (0-2); EOSINOPHILS ABSOLUTE AUTO 0.25 K/mm3 (0.00-0.68); EOSINOPHILS PERCENT AUTO 4 % (0-6); Hematocrit 30.4 % (37.0-53.0); Hemoglobin 9.2 g/dL (13.5-17.5); IMMATURE GRAN ABSOLUTE AUTO 0.03 K/mm3 (0.00-0.10); IMMATURE GRAN PERCENT AUTO 0 % (0-1); LYMPHOCYTES ABSOLUTE AUTO 0.81 K/mm3 (0.84-5.20); LYMPHOCYTES PERCENT AUTO 12 % (21-46); MONOCYTES ABSOLUTE AUTO 0.48 K/mm3 (0.16-1.47); MONOCYTES PERCENT AUTO 7 % (4-13); Mean Corpuscular HGB 26.7 pg (26.0-34.0); Mean Corpuscular HGB Conc 30.3 g/dL (31.5-36.5); Mean Corpuscular Volume 88 fL (80-100); Mean Platelet Volume 10.6 fL (9.1-12.4); NEUTROPHILS ABSOLUTE AUTO 5.41 K/mm3 (1.96-9.15); NEUTROPHILS PERCENT AUTO 77 % (41-73); Platelet Count 127 K/mm3 (150-400); RDW Coefficient Variation 15.2 % (11.7-14.2); RDW Standard Deviation 49.3 fL (35.1-46.3); Red Blood Cell Count 3.45 M/mm3 (4.30-5.90); White Blood Cell Count 7.03 K/mm3 (4.00-11.30)
[2020-12-06 00:53] LABS: SARS-Cov-2 (COVID-19) PCR, MMC NEGATIVE (NEGATIVE)
== END 2020-12-06 01:55 | disposition short-term general hospital (02) ==
LOC: ER 19:52
PROVIDERS: Physician Assistant
DX: N13.2 Hydronephrosis with renal and ureteral calculous obstruction (principal); N39.0 Urinary tract infection, site not specified; I12.9 Hypertensive chronic kidney disease with stage 1 through stage 4 chronic kidney disease, or unspecified chronic kidney disease; N18.30 Chronic kidney disease, stage 3 unspecified; D63.1 Anemia in chronic kidney disease; N17.9 Acute kidney failure, unspecified; Z20.822 Contact with and (suspected) exposure to COVID-19; Z88.0 Allergy status to penicillin; Z91.048 Other nonmedicinal substance allergy status; Z91.040 Latex allergy status; Z79.899 Other long term (current) drug therapy; J44.9 Chronic obstructive pulmonary disease, unspecified; E78.5 Hyperlipidemia, unspecified; I73.9 Peripheral vascular disease, unspecified; F17.200 Nicotine dependence, unspecified, uncomplicated
CPT/HCPCS: 36415; 74176; 80053; 81001; 85025; 87086; 96365; 96375; 96376; 99285-25; J0696; J1170; J7030; U0004

== ENCOUNTER → 2021-05-11 | Outpatient (CLI) | payer MEDICARE | END | disposition home or self-care (01) | LOC: LAB SHORT 17:51 → LAB 17:51 → LAB FUT 05-07 14:05 | DX: N20.0 Calculus of kidney (principal) | CPT/HCPCS: 81050 ==

== ENCOUNTER 2021-07-29 07:34 | Emergency (ER) | payer MEDICARE ==
[~2021-07-29] VITALS: Ht 170.2 cm; Wt 65.8 kg
[2021-07-29 09:19] LABS: BASOPHILS ABSOLUTE AUTO 0.06 K/mm3 (0.00-0.23); BASOPHILS PERCENT AUTO 2 % (0-2); EOSINOPHILS ABSOLUTE AUTO 0.11 K/mm3 (0.00-0.68); EOSINOPHILS PERCENT AUTO 3 % (0-6); Hemoglobin 11.7 g/dL (13.5-17.5); IMMATURE GRAN ABSOLUTE AUTO 0.01 K/mm3 (0.00-0.10); IMMATURE GRAN PERCENT AUTO 0 % (0-1); LYMPHOCYTES ABSOLUTE AUTO 0.52 K/mm3 (0.84-5.20); LYMPHOCYTES PERCENT AUTO 13 % (21-46); MONOCYTES ABSOLUTE AUTO 0.87 K/mm3 (0.16-1.47); MONOCYTES PERCENT AUTO 21 % (4-13); Mean Corpuscular HGB 26.7 pg (26.0-34.0); Mean Corpuscular HGB Conc 31.6 g/dL (31.5-36.5); Mean Corpuscular Volume 85 fL (80-100); Mean Platelet Volume 11.5 fL (9.1-12.4); NEUTROPHILS ABSOLUTE AUTO 2.53 K/mm3 (1.96-9.15); NEUTROPHILS PERCENT AUTO 62 % (41-73); Platelet Count 83 K/mm3 (150-400); RDW Coefficient Variation 14.9 % (11.7-14.2); RDW Standard Deviation 45.6 fL (35.1-46.3); Red Blood Cell Count 4.38 M/mm3 (4.30-5.90)
[2021-07-29 09:35] LABS: Albumin, Blood 3.6 g/dL (3.4-5.0); Bilirubin, Total 0.3 mg/dL (0.1-1.0); Bun/Creatinine Ratio 16.7 (12.0-20.0); Calcium, Blood 9.9 mg/dL (8.5-10.1); Creatinine, Blood 3.36 mg/dL (0.60-1.20); Globulin, Blood 3.5 g/dL (2.2-4.0); Magnesium, Blood 2.2 mg/dL (1.6-2.4); Potassium, Blood 4.7 mmol/L (3.5-5.5); Total Protein, Blood 7.1 g/dL (6.4-8.2)
[2021-07-29 11:11] LABS: Source, Urine Clean Catch
[2021-07-29 11:19] LABS: Appearance, Urine Clear (Clear); Bilirubin, Urine Neg (Neg); Blood, Urine 1+ (Neg); Color, Urine Yellow (P-Yellow); Glucose Qualitative, Urine Neg (Neg); Ketones, Urine Neg (Neg); Leukocyte Esterase, Urine Neg (Neg); Nitrite, Urine Neg (Neg); Protein, Urine Neg (Neg); Urobilinogen, Urine NORM (Normal)
[2021-07-29 11:35] LABS: White Blood Cells, Urine 0-2 /hpf (0-5)
[2021-07-29 11:36] LABS: Bacteria Rare /hpf; Squamous Epithelial Cells Rare /hpf (Few)
== END 2021-07-29 11:36 | disposition home or self-care (01) ==
LOC: ER 07:34
PROVIDERS: Physician Assistant
DX: U07.1 COVID-19 (principal); J44.9 Chronic obstructive pulmonary disease, unspecified; I12.9 Hypertensive chronic kidney disease with stage 1 through stage 4 chronic kidney disease, or unspecified chronic kidney disease; N18.30 Chronic kidney disease, stage 3 unspecified; E78.5 Hyperlipidemia, unspecified; Z79.899 Other long term (current) drug therapy; Z88.0 Allergy status to penicillin; Z91.040 Latex allergy status; Z91.09 Other allergy status, other than to drugs and biological substances; Z91.15 Patient's noncompliance with renal dialysis
CPT/HCPCS: 36415; 80053; 81001; 83735; 85025; J7030

== ENCOUNTER → 2022-09-10 | Outpatient (CLI) | payer MEDICARE ==
[2022-09-17 14:07] LABS: BRUSHITE 0.07 ratio (0.00-3.00); CALCIUM, URINE <0.8 mg/dL (Not Estab.); CALCIUM, URINE <18.4 mg/24 hr (0.0-320.0); CHLORIDE URINE 108 (52-264); CITRIC ACID (CITRATE) 7 mg/L (Not Estab.); CITRIC ACID(CITRATE) 16 mg/24 hr (320-1240); CREATININE, URINE 1660.6 mg/24 hr (1000.0-2000.0); CREATININE, URINE 72.2 mg/dL (Not Estab.); MAGNESIUM, URINE 3.5 mg/dL (Not Estab.); MONOSODIUM URATE 0.74 ratio (0.00-4.00); OSMOLALITY, URINE 376 (300-900); SODIUM, URINE 131 (58-337); SODIUM, URINE 57 mmol/L (Not Estab.); STRUVITE 0.01 ratio (0.00-1.00); URINE VOLUME 2300 mL/24 hr (800-1800); URINE VOLUME (PRESERVATIVE) 2300 mL/24 hr (800-1800)
== END | disposition home or self-care (01) ==
LOC: LAB SHORT 14:18 → LAB 14:18
PROVIDERS: Internal Medicine Nephrology
DX: N18.32 Chronic kidney disease, stage 3b (principal); N20.0 Calculus of kidney
CPT/HCPCS: 81050

== ENCOUNTER 2024-02-10 15:44 | Emergency (ER) | payer MEDICARE ==
[~2024-02-10] VITALS: Ht 170.2 cm; Wt 64.0 kg
[~2024-02-10 15:44] MED LIST changes: +ALLOPURINOL100 M1 PO; +LEFLUNOMIDE20 M2 PO; +MODAFINIL200 MG PO; +OXYC10TA19 PO; +PREG150 PO; +TAMSULOSIN HCL0.4 M1 PO; +TRAZ50 PO; +Ventolin5 MG/1 ML INH
[2024-02-10 16:20] LABS: BASOPHILS ABSOLUTE AUTO 0.07 K/mm3 (0.00-0.23); BASOPHILS PERCENT AUTO 1 % (0-2); EOSINOPHILS ABSOLUTE AUTO 0.08 K/mm3 (0.00-0.68); EOSINOPHILS PERCENT AUTO 1 % (0-6); Hematocrit 35.1 % (37.0-53.0); IMMATURE GRAN ABSOLUTE AUTO 0.02 K/mm3 (0.00-0.10); IMMATURE GRAN PERCENT AUTO 0 % (0-1); LYMPHOCYTES ABSOLUTE AUTO 0.99 K/mm3 (0.84-5.20); LYMPHOCYTES PERCENT AUTO 15 % (21-46); MONOCYTES ABSOLUTE AUTO 0.67 K/mm3 (0.16-1.47); MONOCYTES PERCENT AUTO 10 % (4-13); Mean Corpuscular HGB 29.9 pg (26.0-34.0); Mean Corpuscular HGB Conc 31.3 g/dL (31.5-36.5); Mean Corpuscular Volume 95 fL (80-100); Mean Platelet Volume 9.7 fL (9.1-12.4); NEUTROPHILS PERCENT AUTO 72 % (41-73); Platelet Count 185 K/mm3 (150-400); RDW Coefficient Variation 14.9 % (11.7-14.2); RDW Standard Deviation 51.8 fL (35.1-46.3); Red Blood Cell Count 3.68 M/mm3 (4.30-5.90); White Blood Cell Count 6.53 K/mm3 (4.00-11.30)
[2024-02-10 16:49] LABS: Albumin, Blood 2.9 g/dL (3.4-5.0); Albumin/Globulin Ratio 0.7 (0.8-1.8); Bilirubin, Total 0.4 mg/dL (0.1-1.0); Bun/Creatinine Ratio 19.7 (12.0-20.0); Calcium, Blood 9.2 mg/dL (8.5-10.1); Creatinine, Blood 1.73 mg/dL (0.60-1.20); Globulin, Blood 4.1 g/dL (2.2-4.0); Potassium, Blood 6.2 mmol/L (3.5-5.5)
[2024-02-10 17:30] LABS: Calcium, Ionized (POC) 1.16 mmol/L (1.10-1.46); Chloride (POC) 114 mmol/L (98-108); Creatinine (POC) 1.9 mg/dL (0.8-1.3); Glucose (ISTAT POC) 91 mg/dL (70-99); Hemoglobin (POC) 10.9 g/dL (13.5-17.5); Potassium (POC) 6.1 mmol/L (3.5-5.5); Sodium (POC) 137 mmol/L (135-148); Total CO2 (POC) 18 mmol/L (21-32)
[2024-02-10] MEDS ORDERED: OxyCODONE HCL 5 MG TAB PO ONE (19:25)
[2024-02-10] MEDS ORDERED: Sodium Bicarb 8.4% 1 MEQ/ML 50 ML Vial IV ONE (19:40)
[2024-02-10] MEDS ORDERED: Insulin Regular 100 Unit/ML 1ML Dose IV ONE (19:40)
[2024-02-10] MEDS ORDERED: Calcium Gluconate 10% 100 MG/ML INJ IV ONE (19:40)
[2024-02-10] MEDS ORDERED: Dextrose 50% 50 ML Syringe IV ONE (19:45)
[2024-02-10] MEDS ORDERED: Dextrose 50% 50 ML Vial IV ONE (19:45)
[2024-02-10] MEDS ORDERED: Sodium Zirconium Cyclosilicate 10 GM Packet PO ONE (19:55)
[2024-02-10] MEDS ORDERED: CALCIUM GLUC IN NACL, ISO-OSM 50 ML IV ONE (20:10)
[2024-02-10 20:45] VITALS: BP 166/73
[2024-02-10] MEDS ORDERED: LOKELMA10 GM PO (21:48)
[2024-02-11] MEDS ORDERED: Sodium Zirconium Cyclosilicate 10 GM Packet PO SCH ×2 (09:00)
== END 2024-02-10 22:33 | disposition home or self-care (01) ==
LOC: ER 15:44
PROVIDERS: Student in an Organized Health Care Education/Training Program
DX: I97.638 Postprocedural hematoma of a circulatory system organ or structure following other circulatory system procedure (principal); E87.5 Hyperkalemia; Z88.0 Allergy status to penicillin; Z91.040 Latex allergy status; Z91.09 Other allergy status, other than to drugs and biological substances; Z88.8 Allergy status to other drugs, medicaments and biological substances; Z79.899 Other long term (current) drug therapy; F17.200 Nicotine dependence, unspecified, uncomplicated; I12.9 Hypertensive chronic kidney disease with stage 1 through stage 4 chronic kidney disease, or unspecified chronic kidney disease; N18.30 Chronic kidney disease, stage 3 unspecified; J44.9 Chronic obstructive pulmonary disease, unspecified; E78.5 Hyperlipidemia, unspecified; Z87.442 Personal history of urinary calculi
CPT/HCPCS: 76857; 80047; 80053; 85014; 85025; 93005; 93010; 93922; 93971; 96374; 96375; 99284-25; A9270; J0612; J1815; J7799

== ENCOUNTER → 2024-04-04 | Outpatient (CLI) | payer MEDICARE ==
[~2024-04-04] MED LIST changes: +LOKELMA10 GM PO
== END ==
LOC: LAB 12:34 → LAB SHORT 12:34
DX: R05.8 Other specified cough (principal)
CPT/HCPCS: 87070; 87077; 87185; 87186; 87205

== ENCOUNTER 2024-04-22 19:31 | Emergency (ER) | payer MEDICARE ==
[~2024-04-22] VITALS: Ht 170.2 cm; Wt 63.5 kg
[2024-04-22 20:07] LABS: BASOPHILS ABSOLUTE AUTO 0.11 K/mm3 (0.00-0.23); BASOPHILS PERCENT AUTO 2 % (0-2); EOSINOPHILS PERCENT AUTO 3 % (0-6); Hematocrit 38.2 % (37.0-53.0); Hemoglobin 11.6 g/dL (13.5-17.5); IMMATURE GRAN ABSOLUTE AUTO 0.02 K/mm3 (0.00-0.10); IMMATURE GRAN PERCENT AUTO 0 % (0-1); LYMPHOCYTES ABSOLUTE AUTO 0.96 K/mm3 (0.84-5.20); LYMPHOCYTES PERCENT AUTO 17 % (21-46); MONOCYTES ABSOLUTE AUTO 0.53 K/mm3 (0.16-1.47); MONOCYTES PERCENT AUTO 9 % (4-13); Mean Corpuscular HGB 27.2 pg (26.0-34.0); Mean Corpuscular HGB Conc 30.4 g/dL (31.5-36.5); Mean Corpuscular Volume 90 fL (80-100); Mean Platelet Volume 11.2 fL (9.1-12.4); NEUTROPHILS PERCENT AUTO 69 % (41-73); Platelet Count 98 K/mm3 (150-400); RDW Coefficient Variation 15.3 % (11.7-14.2); RDW Standard Deviation 50.4 fL (35.1-46.3); Red Blood Cell Count 4.27 M/mm3 (4.30-5.90); White Blood Cell Count 5.82 K/mm3 (4.00-11.30)
[2024-04-22 20:21] LABS: Albumin, Blood 2.6 g/dL (3.4-5.0); Albumin/Globulin Ratio 0.6 (0.8-1.8); Bilirubin, Total 0.3 mg/dL (0.1-1.0); Bun/Creatinine Ratio 17.2 (12.0-20.0); Calcium, Blood 8.7 mg/dL (8.5-10.1); Creatinine, Blood 1.57 mg/dL (0.60-1.20); Globulin, Blood 4.2 g/dL (2.2-4.0); Potassium, Blood 5.3 mmol/L (3.5-5.5); Total Protein, Blood 6.8 g/dL (6.4-8.2)
[2024-04-23 00:21] VITALS: BP 177/79
== END 2024-04-23 00:24 | disposition home or self-care (01) ==
LOC: ER 19:31
PROVIDERS: Student in an Organized Health Care Education/Training Program
DX: R60.0 Localized edema (principal); J44.9 Chronic obstructive pulmonary disease, unspecified; I12.9 Hypertensive chronic kidney disease with stage 1 through stage 4 chronic kidney disease, or unspecified chronic kidney disease; N18.30 Chronic kidney disease, stage 3 unspecified; E78.5 Hyperlipidemia, unspecified; F17.210 Nicotine dependence, cigarettes, uncomplicated; Z98.62 Peripheral vascular angioplasty status; Z88.0 Allergy status to penicillin; Z88.8 Allergy status to other drugs, medicaments and biological substances; Z79.899 Other long term (current) drug therapy
CPT/HCPCS: 80053; 85025; 93971; 99284-25

== ENCOUNTER 2024-08-20 10:43 | Inpatient (IN) | payer MEDICARE ==
[~2024-08-20] VITALS: Ht 170.2 cm; Wt 58.6 kg
[~2024-08-20 10:43] MED LIST changes: +ALBU90OI INH; -ANORO ELLIPTA1 EACH INH; +METO100 PO; +TRELEGY ELLIPT1 EACH PO
[2024-08-20 11:45] LABS: BASOPHILS ABSOLUTE AUTO 0.11 K/mm3 (0.00-0.23); BASOPHILS PERCENT AUTO 2 % (0-2); EOSINOPHILS ABSOLUTE AUTO 0.36 K/mm3 (0.00-0.68); EOSINOPHILS PERCENT AUTO 6 % (0-6); Hematocrit 32.8 % (37.0-53.0); Hemoglobin 10.1 g/dL (13.5-17.5); IMMATURE GRAN ABSOLUTE AUTO 0.02 K/mm3 (0.00-0.10); IMMATURE GRAN PERCENT AUTO 0 % (0-1); LYMPHOCYTES ABSOLUTE AUTO 0.91 K/mm3 (0.84-5.20); LYMPHOCYTES PERCENT AUTO 16 % (21-46); MONOCYTES ABSOLUTE AUTO 0.44 K/mm3 (0.16-1.47); MONOCYTES PERCENT AUTO 8 % (4-13); Mean Corpuscular HGB Conc 30.8 g/dL (31.5-36.5); Mean Corpuscular Volume 90 fL (80-100); NEUTROPHILS ABSOLUTE AUTO 3.89 K/mm3 (1.96-9.15); NEUTROPHILS PERCENT AUTO 68 % (41-73); NRBC ABSOLUTE 0.00 K/mm3 (0.00-0.02); NRBC Auto 0.0 /100 WBC (0.0-0.2); Platelet Count 107 K/mm3 (150-400); RDW Coefficient Variation 16.8 % (11.7-14.2); RDW Standard Deviation 54.8 fL (35.1-46.3)
[2024-08-20 12:11] LABS: Influenza A, PCR NEGATIVE (NEGATIVE); Influenza B, PCR NEGATIVE (NEGATIVE); Resp Syncytial Virus, PCR NEGATIVE (NEGATIVE); SARS-Cov-2 (COVID-19) PCR, MMC NEGATIVE (NEGATIVE)
[2024-08-20 12:35] LABS: Alanine Aminotransfer (ALT/SGP 52.0 U/L (12-78); Albumin, Blood 2.5 g/dL (3.4-5.0); Albumin/Globulin Ratio 0.7 (0.8-1.8); Anion Gap 5.0 mmol/L (3-11); Aspartate Aminotrans (AST/SGOT 39.0 U/L (12-37); Bilirubin, Total 0.4 mg/dL (0.1-1.0); Blood Urea Nitrogen 24.0 mg/dL (8-24); CO2, Blood 23.0 mmol/L (21-32); Calcium, Blood 7.4 mg/dL (8.5-10.1); Chloride, Blood 113.0 mmol/L (98-108); Creatinine, Blood 1.72 mg/dL (0.60-1.20); Globulin, Blood 3.7 g/dL (2.2-4.0); Glucose, Blood 121.0 mg/dL (70-99); Potassium, Blood 5.4 mmol/L (3.5-5.5); Sodium, Blood 136.0 mmol/L (136-145); Total Protein, Blood 6.2 g/dL (6.4-8.2)
[2024-08-20 17:35] VITALS: BP 141/83
[2024-08-20] MEDS ORDERED: Albuterol 2.5 MG/3 ML VIAL INH PRN (17:45)
[2024-08-20] MEDS ORDERED: Tiotropium Bromide 2.5 MCG/ACT MIST INHAL (10 ACT/4 GM) INH SCH (17:45)
[2024-08-20] MEDS ORDERED: Formoterol/Mometasone MDI 5/100 mcg 13 GM INH SCH (17:45)
[2024-08-20] MEDS ORDERED: LOSA50 PO (19:22)
[2024-08-20] MEDS ORDERED: CALC.25 PO (19:22)
[2024-08-20 19:36] VITALS: BP 157/80
[2024-08-20] MEDS ORDERED: Heparin Sodium,Porcine 5,000 UNIT/0.5 ML SDV SC SCH (21:00)
--- NOTE | 2024-08-20 21:02 | NUR ---
END OF SHIFT SUMMARY: PT ARRIVED TO FLOOR AT 1730 ACCOMPANIED BY , CARL. A&Ox4. PLEASANT AND COOPERATIVE WITH CARE. CALLS APPROPRIATELY AND IS ABLE TO ADVOCATE NEEDS EFFECTIVELY. CONTINENT OF BOWEL AND BLADDER; LBM TODAY. AMBULATES SBA c FWW. MEDS WHOLE c FLUIDS. CHRONIC PAIN FOR WHICH HE TAKES OXY 10MG Q4HP. BED IN LOWEST POSITION, CALL LIGHT WITHIN REACH, ALL NEEDS MET. REPORT TO ONCOMING NURSE.
[2024-08-21] MEDS ORDERED: Folic Acid 1 MG TAB PO SCH (01:10)
[2024-08-21 02:24] VITALS: BP 143/71
--- NOTE | 2024-08-21 04:06 | NUR ---
SURFACE LAY OUT TECHNICIAN SUMMARY ADMISSION ASSESSMENT FINISHED. MED RECONCILE TOOK LONGER THAN USUAL AND PT VOICED DISAPPOINTMENT, AMBULATED OUT INTO THE HALLWAY. UP AD DANIEL WITH OBS. RECEIVED HS MEDS AND IS CURRENTLY RESTING QUIETLY. WAS ORIENTED TO USE OF CALL LIGHT. CALL LIGHT IN REACH, RAILS UP X 2 AND BED IN LOW POSITION FOR SAFETY. BP ELEVATED, OTHERWISE, VSS. ANTIHYPERTENSIVE MEDS ADMIN - SEE MAR FOR DETAILS. WILL CONT TO MONITOR
[2024-08-21 04:38] LABS: Hematocrit 28.6 % (37.0-53.0); Hemoglobin 9.0 g/dL (13.5-17.5); Mean Corpuscular HGB Conc 31.5 g/dL (31.5-36.5); Mean Corpuscular Volume 87 fL (80-100); NRBC ABSOLUTE 0.00 K/mm3 (0.00-0.02); NRBC Auto 0.0 /100 WBC (0.0-0.2); Platelet Count 105 K/mm3 (150-400); RDW Coefficient Variation 16.6 % (11.7-14.2); RDW Standard Deviation 53.1 fL (35.1-46.3)
[2024-08-21] MEDS ORDERED: Polyethylene Glycol 3350 17 gm PO SCH (09:00)
[2024-08-21 12:23] LABS: Alanine Aminotransfer (ALT/SGP 40.0 U/L (12-78); Albumin, Blood 2.2 g/dL (3.4-5.0); Albumin/Globulin Ratio 0.6 (0.8-1.8); Anion Gap 18.0 mmol/L (3-11); Aspartate Aminotrans (AST/SGOT 30.0 U/L (12-37); Bilirubin, Total 0.3 mg/dL (0.1-1.0); Blood Urea Nitrogen 32.0 mg/dL (8-24); CO2, Blood 18.0 mmol/L (21-32); Calcium, Blood 7.2 mg/dL (8.5-10.1); Chloride, Blood 108.0 mmol/L (98-108); Creatinine, Blood 1.8 mg/dL (0.60-1.20); Globulin, Blood 3.4 g/dL (2.2-4.0); Glucose, Blood 92.0 mg/dL (70-99); Potassium, Blood 5.4 mmol/L (3.5-5.5); Sodium, Blood 139.0 mmol/L (136-145); Total Protein, Blood 5.6 g/dL (6.4-8.2)
[2024-08-21] MEDS ORDERED: VITAMIN D31000 UNI1 PO (12:27)
[2024-08-21] MEDS ORDERED: PROLIA60 MG/1 ML SC (12:28)
[2024-08-21] MEDS ORDERED: CALCIUM 600 +1 EA11 PO (12:30)
[2024-08-21] MEDS ORDERED: CLOB.05TO TOP (12:31)
[2024-08-21 14:43] LABS: IMMATURE RETIC FRACTION 10.2 % (2.3-16.0); RETIC HGB EQUIVALENT 31.6 pg (28.20-36.60); RETICULOCYTE ABSOLUTE 0.0324 M/mm3 (0.0200-0.1100); RETICULOCYTE COUNT PERCENT 0.88 % (0.50-2.50)
[2024-08-21 15:28] LABS: Anion Gap 7.0 mmol/L (3-11); Blood Urea Nitrogen 32.0 mg/dL (8-24); CO2, Blood 23.0 mmol/L (21-32); Calcium, Blood 7.5 mg/dL (8.5-10.1); Chloride, Blood 111.0 mmol/L (98-108); Creatinine, Blood 1.83 mg/dL (0.60-1.20); Glucose, Blood 114.0 mg/dL (70-99); Potassium, Blood 4.9 mmol/L (3.5-5.5); Sodium, Blood 136.0 mmol/L (136-145)
[2024-08-21 16:00] LABS: Ferritin, Serum 51.0 ng/mL (26-388); Total Iron Binding Capacity 238.0 ug/dL (250-450)
--- NOTE | 2024-08-21 17:29 | NUR ---
SHIFT SUMMARY PATIENT ALERT AND INTERACTIVE. PATIENT UP AMBULATING WITH WALKER INDEPENDENTLY. PATIENT MEDICATED FOR PAIN IN R LEG AND GROIN. ADINT STATES THAT PAIN IS CHRONIC BUT HAS BECOME WORSE SINCE LAST SURGERY. PATIENT ABLE TO SEE SHAPES AND USES MAGNIFYING GLASS TO SEE THINGS. PATIENT HAD ECHO LAST EVENING, NUC MED SCAN DONE TODAY. CARDIOLOGY CONSULTED. PT TO BE NPO AT MIDNIGHT FOR POSSIBLE ANGIOGRAM IN AM.
[2024-08-21 19:39] VITALS: BP 162/72
[2024-08-21] MEDS ORDERED: Cholecalciferol 1000 Unit Tablet (=25MCG) PO SCH (21:00)
[2024-08-21] MEDS ORDERED: Calcium/Vit D 600 mg-400 Unit Tab PO SCH (21:00)
[2024-08-22] VITALS (12 sets, daily range): BP systolic 151–175; BP diastolic 57–90
--- NOTE | 2024-08-22 01:08 | NUR ---
NOTE: MD CALLED TO INQUIRE IF PT REQUIRED TELEMETRY MONITORING DUE TO THE POSSIBLE CARDIAC CATHERIZATION TODAY. STATED THAT IT WILL NOT BE NECESSARY AT THIS TIME.
--- NOTE | 2024-08-22 03:33 | NUR ---
SHIFT SUMMARY: AOX4. AMBULATES INDEPENDENTLY WITH FWW. PT HAS COMPLAINED OF GROIN PAIN THIS SHIFT, OXYCODONE GIVEN PER eMAR. PT HAS BEEN NPO SINCE MIDNIGHT FOR POSSIBLE CARDIAC CATHERIZATION. PT DENIES ANY CP OR PALPITATIONS THIS SHIFT. CALL LIGHT IS WITHIN REACH. BED IS LOW AND LOCKED.
[2024-08-22 04:49] LABS: BASOPHILS ABSOLUTE AUTO 0.05 K/mm3 (0.00-0.23); BASOPHILS PERCENT AUTO 2 % (0-2); EOSINOPHILS ABSOLUTE AUTO 0.01 K/mm3 (0.00-0.68); EOSINOPHILS PERCENT AUTO 0 % (0-6); Hematocrit 29.2 % (37.0-53.0); Hemoglobin 9.3 g/dL (13.5-17.5); IMMATURE GRAN ABSOLUTE AUTO 0.01 K/mm3 (0.00-0.10); IMMATURE GRAN PERCENT AUTO 0 % (0-1); LYMPHOCYTES ABSOLUTE AUTO 0.65 K/mm3 (0.84-5.20); LYMPHOCYTES PERCENT AUTO 22 % (21-46); MONOCYTES ABSOLUTE AUTO 0.20 K/mm3 (0.16-1.47); MONOCYTES PERCENT AUTO 7 % (4-13); Mean Corpuscular HGB Conc 31.8 g/dL (31.5-36.5); Mean Corpuscular Volume 86 fL (80-100); NEUTROPHILS ABSOLUTE AUTO 2.09 K/mm3 (1.96-9.15); NEUTROPHILS PERCENT AUTO 70 % (41-73); NRBC ABSOLUTE 0.00 K/mm3 (0.00-0.02); NRBC Auto 0.0 /100 WBC (0.0-0.2); Platelet Count 104 K/mm3 (150-400); RDW Coefficient Variation 16.3 % (11.7-14.2); RDW Standard Deviation 51.5 fL (35.1-46.3)
[2024-08-22 05:32] LABS: Anion Gap 7.0 mmol/L (3-11); Blood Urea Nitrogen 32.0 mg/dL (8-24); CO2, Blood 22.0 mmol/L (21-32); Calcium, Blood 7.4 mg/dL (8.5-10.1); Chloride, Blood 113.0 mmol/L (98-108); Creatinine, Blood 1.88 mg/dL (0.60-1.20); Glucose, Blood 105.0 mg/dL (70-99); Potassium, Blood 5.3 mmol/L (3.5-5.5); Sodium, Blood 137.0 mmol/L (136-145)
[2024-08-22] MEDS ORDERED: Sod Ferric Gluc Complx/Sucrose 125 MG in NS 100 ML IV SCH (10:07)
[2024-08-22] MEDS ORDERED: Verapamil HCL 2.5 MG/ML 2ML Injection ONE (13:53)
[2024-08-22] MEDS ORDERED: NS 1,000 ML IV ONE ×2 (13:54→14:04)
[2024-08-22] MEDS ORDERED: Heparin Sodium 1000 Units/ML 10ML MDV ONE (13:54)
[2024-08-22] MEDS ORDERED: NS 250 ML IV ONE (13:54)
[2024-08-22] MEDS ORDERED: Nitroglycerin 2 MG/20 ML BTL ONE (13:54)
--- NOTE | 2024-08-22 14:37 | NUR ---
SHIFT SUMMARY AND TRANSFER TO CHURN OPERATOR PATIENT ALERT AND ORIENTED. PATIENT POOR VISION WITH LIGHT SENSITIVITY. PATIENT USING MAGNIFYING GLASS TO READ AND SUNGLASSES TO PROTECT FROM LIGHT. PATIENT ABLE TO AMBULATE WITH WALKER INDEPENDENTLY IN ROOM. PATIENT MEDICATED FOR PAIN PER MAR. PATIENT TO CHURN OPERATOR VIA WHEELCHAIR. REPORT CALLED TO PCU PT TO GO TO PCU AFTER CATH. FAMILY TOOK BELONINGS DOWN TO NEW ROOM.
[2024-08-22] MEDS ORDERED: FentaNYL Citrate 50 MCG/ML 2 ML Injection ONE (15:13)
[2024-08-22] MEDS ORDERED: Midazolam HCl 1MG / ML 2ML Vial ONE (15:13)
--- NOTE | 2024-08-22 15:36 | NUR ---
Notified by Coty RAMSAY that pt will be arriving from [facility] within a few minutes.
--- NOTE | 2024-08-22 15:59 | NUR ---
Arrived from heart center. Awake, alert and oriented and conversant. Denies any pain. TR band on the right wrist noted, site is WNL. Per report the coronary arteries were clear. Vital signs are stable albeit with elevated blood pressure initially. White immobilizer board in place on the right arm, pt is sitting up and drinking po fluids.
--- NOTE | 2024-08-22 17:41 | NUR ---
R radial site remains unchanged from previous assessments. Pt is without any symptoms, sitting on side of bed eating finger food diet. white immoblizer board is in place. States he voided 400 cc urine and the DRY KILN FEEDER took it. Vital signs are stable.
--- NOTE | 2024-08-22 18:40 | NUR ---
2 CC AIR REMOVED FROM THE TR BAND. the site remains unchanged from previous assessment.
[2024-08-23] VITALS (9 sets, daily range): BP systolic 144–179; BP diastolic 58–92
[2024-08-23 04:20] LABS: BASOPHILS ABSOLUTE AUTO 0.06 K/mm3 (0.00-0.23); BASOPHILS PERCENT AUTO 2 % (0-2); EOSINOPHILS ABSOLUTE AUTO 0.09 K/mm3 (0.00-0.68); EOSINOPHILS PERCENT AUTO 2 % (0-6); Hematocrit 29.5 % (37.0-53.0); Hemoglobin 9.3 g/dL (13.5-17.5); IMMATURE GRAN ABSOLUTE AUTO 0.01 K/mm3 (0.00-0.10); IMMATURE GRAN PERCENT AUTO 0 % (0-1); LYMPHOCYTES ABSOLUTE AUTO 0.94 K/mm3 (0.84-5.20); LYMPHOCYTES PERCENT AUTO 23 % (21-46); MONOCYTES ABSOLUTE AUTO 0.48 K/mm3 (0.16-1.47); MONOCYTES PERCENT AUTO 12 % (4-13); Mean Corpuscular HGB Conc 31.5 g/dL (31.5-36.5); Mean Corpuscular Volume 87 fL (80-100); NEUTROPHILS ABSOLUTE AUTO 2.46 K/mm3 (1.96-9.15); NEUTROPHILS PERCENT AUTO 61 % (41-73); NRBC ABSOLUTE 0.00 K/mm3 (0.00-0.02); NRBC Auto 0.0 /100 WBC (0.0-0.2); Platelet Count 114 K/mm3 (150-400); RDW Coefficient Variation 16.8 % (11.7-14.2); RDW Standard Deviation 53.1 fL (35.1-46.3)
[2024-08-23 04:44] LABS: Anion Gap 9.0 mmol/L (3-11); Blood Urea Nitrogen 38.0 mg/dL (8-24); CO2, Blood 22.0 mmol/L (21-32); Calcium, Blood 8.4 mg/dL (8.5-10.1); Chloride, Blood 112.0 mmol/L (98-108); Creatinine, Blood 1.96 mg/dL (0.60-1.20); Glucose, Blood 104.0 mg/dL (70-99); Potassium, Blood 4.8 mmol/L (3.5-5.5); Sodium, Blood 138.0 mmol/L (136-145)
--- NOTE | 2024-08-23 05:11 | NUR ---
SHIFT SUMMARY PATIENT ALERT AND ORIENTED X4. STAND BY ASSIST TO THE RESTROOM. PATIENT MEDICATED PER EMAR FOR PAIN. HAD NO COMPLAINTS OF SHORTNESS OF BREATH. ON ROOM AIR WITH SPO2 >90%. VITAL SIGNS STABLE. NO SIGNS OF BLEEDING OR SWELLING FROM ANGIOGRAM SITE. NO ACUTE ISSUES NOTED OVERNIGHT. WILL CONTINUE TO MONITOR. CALL LIGHT WITHIN REACH.
--- NOTE | 2024-08-23 06:12 | NUR ---
PHYSICIAN COMMUNICATION PATIENT NOTED TO BE BRADYCARDIC IN THE 40'S-50'S WHILE SLEEPING. TELEMETRY ALERTED TO "PAUSES" WHICH UPON FURTHER INVESTIGATION WERE BLOCKED PAC'S WHICH ARE INCREASING IN FREQUENCY. PATIENT ASYMPTOMATIC. LABS UNREMARKABLE. NO SIGNS OF SLEEP APNEA NOTED. NOTIFIED DR BARTH. HE SAID TO HOLD AM BETA BRYN IF PATIENT CONTINUES TO BE BRADYCARDIC WHILE AWAKE.
--- NOTE | 2024-08-23 12:59 | NUR ---
Pt states he would like a stool softener. Asked if pt has constipation, he says no but that he had no BM for 2 days so he thinks that "it would be prudent". States that he had "borderline diarrhea" for the past 10 days. Clarifying questions reveal that the pt had 2-3 soft BMs for about a week, which stopped yesterday. He states that he does not have constipation, but that he has a very large BM normally every 2-3 days. The discussion was ended there as the pt was not receptive to education about bowel care management in the setting of heart failure,chronic narcotic use and iron supplements.
--- NOTE | 2024-08-23 13:02 | NUR ---
Pt ambulated around the PCU one loop with the RN accompanying him this morning.. He was a little painful in his leg afterwards, but he was eager to have the activity this morning.
--- NOTE | 2024-08-23 14:39 | NUR ---
Pt called for bathroom assistance, used the geriwalker to go into bathroom to void.
[2024-08-23 16:26] LABS: Albumin, Blood 2.7 g/dL (3.4-5.0); Anion Gap 7 mmol/L (3-11); Blood Urea Nitrogen 37 mg/dL (8-24); CO2, Blood 24 mmol/L (21-32); Calcium, Blood 9.4 mg/dL (8.5-10.1); Chloride, Blood 109 mmol/L (98-108); Creatinine, Blood 2.01 mg/dL (0.60-1.20); Glucose, Blood 127 mg/dL (70-99); Phosphorus, Blood 4.5 mg/dL (2.5-4.9); Potassium, Blood 5.1 mmol/L (3.5-5.5); Sodium, Blood 135 mmol/L (136-145)
[2024-08-24 03:49] VITALS: BP 130/67
[2024-08-24 04:02] LABS: BASOPHILS ABSOLUTE AUTO 0.04 K/mm3 (0.00-0.23); BASOPHILS PERCENT AUTO 1 % (0-2); EOSINOPHILS ABSOLUTE AUTO 0.03 K/mm3 (0.00-0.68); EOSINOPHILS PERCENT AUTO 1 % (0-6); Hematocrit 30.6 % (37.0-53.0); Hemoglobin 9.6 g/dL (13.5-17.5); IMMATURE GRAN ABSOLUTE AUTO 0.01 K/mm3 (0.00-0.10); IMMATURE GRAN PERCENT AUTO 0 % (0-1); LYMPHOCYTES ABSOLUTE AUTO 0.76 K/mm3 (0.84-5.20); LYMPHOCYTES PERCENT AUTO 19 % (21-46); MONOCYTES ABSOLUTE AUTO 0.43 K/mm3 (0.16-1.47); MONOCYTES PERCENT AUTO 11 % (4-13); Mean Corpuscular HGB Conc 31.4 g/dL (31.5-36.5); Mean Corpuscular Volume 86 fL (80-100); NEUTROPHILS ABSOLUTE AUTO 2.65 K/mm3 (1.96-9.15); NEUTROPHILS PERCENT AUTO 68 % (41-73); NRBC ABSOLUTE 0.00 K/mm3 (0.00-0.02); NRBC Auto 0.0 /100 WBC (0.0-0.2); Platelet Count 133 K/mm3 (150-400); RDW Coefficient Variation 16.4 % (11.7-14.2); RDW Standard Deviation 51.3 fL (35.1-46.3)
[2024-08-24 04:21] LABS: Anion Gap 10.0 mmol/L (3-11); Blood Urea Nitrogen 42.0 mg/dL (8-24); CO2, Blood 24.0 mmol/L (21-32); Calcium, Blood 9.2 mg/dL (8.5-10.1); Chloride, Blood 107.0 mmol/L (98-108); Creatinine, Blood 1.98 mg/dL (0.60-1.20); Glucose, Blood 102.0 mg/dL (70-99); Potassium, Blood 4.8 mmol/L (3.5-5.5); Sodium, Blood 136.0 mmol/L (136-145)
--- NOTE | 2024-08-24 05:28 | NUR ---
SHIFT SUMMARY PATIENT ALERT AND ORINETED X4. MEDICATED PER EMAR FOR PAIN. HAD NO COMPLAINTS OF SHORTNESS OF BREATH. ON ROOM AIR. HAS BEEN GOING BACK AND FORTH BETWEEN SINUS RHYTHM AND RATE CONTROLLED AFIB ON TELE. VITAL SIGNS STABLE. WILL CONTINUE TO MONITOR. CALL LIGHT WITHIN REACH.
--- NOTE | 2024-08-24 08:19 | NUR ---
At time of bedside shift report, pt was reported to have had a rhythm change which was reported as atrial flutter with occasional sinus rhythm beats. EKG was done to document it. The pt reports that he has no chest discomfort, but that he does feel extra tired today. He states that he thinks he might have overdone it with two walks in the unit yesterday.
[2024-08-24 08:21] VITALS: BP 139/60
--- NOTE | 2024-08-24 11:03 | NUR ---
Pt and were educated on atrial fibrillation, risks and treatment. Also educated on risks of stroke and symptoms to watch for, as well as symptoms of GI bleed and prevention including avoiding use of NSAIDs. Verbal and written materials were given to both of them.
[2024-08-24 11:31] VITALS: BP 133/59
[2024-08-24] MEDS ORDERED: Sod Ferric Gluc Complx/Sucrose 125 MG in NS 100 ML IV SCH (15:54)
--- NOTE | 2024-08-24 17:44 | NUR ---
Dr De Guzman notified of Mg level 1.5. He will put orders in.
[2024-08-24] MEDS ORDERED: Mag Sulfate 1 GM/D5% 100ML 100 ML IV STA (17:59)
[2024-08-24 19:46] VITALS: BP 149/64
[2024-08-24 22:50] VITALS: BP 154/66
--- NOTE | 2024-08-24 22:53 | NUR ---
PATIENT TRANSFERRED TO [facility]. REPORT GIVEN TO TYLER RAMSAY FOR ASSUMPTION OF CARE.
[2024-08-25 05:15] LABS: BASOPHILS ABSOLUTE AUTO 0.04 K/mm3 (0.00-0.23); BASOPHILS PERCENT AUTO 1 % (0-2); EOSINOPHILS ABSOLUTE AUTO 0.05 K/mm3 (0.00-0.68); EOSINOPHILS PERCENT AUTO 1 % (0-6); Hematocrit 31.9 % (37.0-53.0); Hemoglobin 10.1 g/dL (13.5-17.5); IMMATURE GRAN ABSOLUTE AUTO 0.01 K/mm3 (0.00-0.10); IMMATURE GRAN PERCENT AUTO 0 % (0-1); LYMPHOCYTES ABSOLUTE AUTO 0.89 K/mm3 (0.84-5.20); LYMPHOCYTES PERCENT AUTO 17 % (21-46); MONOCYTES ABSOLUTE AUTO 0.49 K/mm3 (0.16-1.47); MONOCYTES PERCENT AUTO 9 % (4-13); Mean Corpuscular HGB Conc 31.7 g/dL (31.5-36.5); Mean Corpuscular Volume 86 fL (80-100); NEUTROPHILS ABSOLUTE AUTO 3.75 K/mm3 (1.96-9.15); NEUTROPHILS PERCENT AUTO 72 % (41-73); NRBC ABSOLUTE 0.00 K/mm3 (0.00-0.02); NRBC Auto 0.0 /100 WBC (0.0-0.2); Platelet Count 133 K/mm3 (150-400); RDW Coefficient Variation 16.5 % (11.7-14.2); RDW Standard Deviation 51.8 fL (35.1-46.3)
--- NOTE | 2024-08-25 05:33 | NUR ---
Shift Summary Pt on tele running afib with a rate between 55-65 while asleep. No c/o of chest discomfort. He was medicated for groin and thigh pain per emar. Pt drinking coffee and pepsi exclusively. He is AOx4, independent in the room, uses urinal for voids. He slept well t/o most of the night.
[2024-08-25 05:49] LABS: Albumin, Blood 2.5 g/dL (3.4-5.0); Anion Gap 8 mmol/L (3-11); Blood Urea Nitrogen 52 mg/dL (8-24); CO2, Blood 26 mmol/L (21-32); Calcium, Blood 10.0 mg/dL (8.5-10.1); Chloride, Blood 105 mmol/L (98-108); Creatinine, Blood 2.12 mg/dL (0.60-1.20); Glucose, Blood 106 mg/dL (70-99); Magnesium, Blood 2.0 mg/dL (1.6-2.4); Phosphorus, Blood 5.3 mg/dL (2.5-4.9); Potassium, Blood 4.8 mmol/L (3.5-5.5); Sodium, Blood 134 mmol/L (136-145)
[2024-08-25 07:14] VITALS: BP 158/81
[2024-08-25] MEDS ORDERED: DOCU100 PO (15:49)
[2024-08-25] MEDS ORDERED: ELIQUIS2.5 MG PO (15:49)
[2024-08-25] MEDS ORDERED: JARDIANCE10 MG PO (15:50)
[2024-08-25] MEDS ORDERED: FERSU300 PO (15:50)
[2024-08-25] MEDS ORDERED: FURO40 PO (15:50)
[2024-08-25] MEDS ORDERED: VITAMIN C125 MG PO (15:51)
[2024-08-25] MEDS ORDERED: MIRALAX17 GM PO (15:51)
[2024-08-25] MEDS ORDERED: PANT20 PO (15:52)
--- NOTE | 2024-08-25 16:15 | NUR ---
SHIFT/DISCHARGE SUMMARY: PATIENT DENIES CP/PRESSURE, SOB, N/V AND DIZZINESS. PATIENT HAS HAD NO EVENTS ON TELE THIS SHIFT, A-FLUTTER HR IN THE MID 60'S BPM. PATIENT MEDICATED FOR PAIN PER EMAR c GOOD EFFECT. PATIENT AMBULATED IN HALLWAY X2 c FWW, DID WELL. PATIENT DECLINED PT EVAL. PATIENT RECEIVED SCHEDULED MEDS PER EMAR. VITAL SIGNS REVIEWED. PATIENT HAS GREAT APPETITE, CONTINENT OF BAB, AMBULATES TO BATHROOM INDEPENDENTLY. PATIENT REQUESTING TO GO HOME SINCE BEGINNING OF SHIFT. NOTIFIED DR. ZAVALA c PATIENT REQUEST. PIV DC'D BY JAG STOUT. PATIENT DISCHARGE HOME. DISCHARGE INSTRUCTIONS PACKET GIVEN TO PATIENT. PATIENT EDUCATED ON ADMITTING DX'S OF ACUTE CHF, S/S, TX, SELF CARE, DAILY WEIGHT, NEW RX AND TO F/U c PCP. PATIENT VERBALIZED UNDERSTANDING AND NO FURTHER QUESTIONS. RX WAS FAXED TO PATIENT PREFERRED PHARMACY-[facility]. ALL PERSONAL BELONGINGS WERE SENT c PATIENT. PATIENT LEFT THE ROOM AT 1614, TRANSPORTED VIA WC BY JAG STOUT TO PATIENT ENTRANCE.
== END 2024-08-25 16:14 | disposition home or self-care (01) | DRG 286 ==
LOC: ER 10:43 → MEDS 10:44 → ERHOLD 10:44 → MEDS 17:33 → PCU 08-21 11:41 → MEDS 08-21 11:42 → PCU 08-22 16:01 → MEDS 08-24 22:44
PROVIDERS: Emergency Medicine; Student in an Organized Health Care Education/Training Program; ADMIT Internal Medicine
PROC: 4A023N6 Measurement of Cardiac Sampling and Pressure, Right Heart, Percutaneous Approach (ICD-10-PCS; principal; 2024-08-22)
PROC: B2111ZZ Fluoroscopy of Multiple Coronary Arteries using Low Osmolar Contrast (ICD-10-PCS; 2024-08-22)
DX: I13.0 Hypertensive heart and chronic kidney disease with heart failure and stage 1 through stage 4 chronic kidney disease, or unspecified chronic kidney disease (principal); I50.41 Acute combined systolic (congestive) and diastolic (congestive) heart failure; I48.92 Unspecified atrial flutter; E87.1 Hypo-osmolality and hyponatremia; J44.1 Chronic obstructive pulmonary disease with (acute) exacerbation; R64 Cachexia; E87.20 Acidosis, unspecified; D61.818 Other pancytopenia; L76.34 Postprocedural seroma of skin and subcutaneous tissue following other procedure; Z68.1 Body mass index [BMI] 19.9 or less, adult; I08.0 Rheumatic disorders of both mitral and aortic valves; I25.10 Atherosclerotic heart disease of native coronary artery without angina pectoris; I73.9 Peripheral vascular disease, unspecified; N40.0 Benign prostatic hyperplasia without lower urinary tract symptoms; E78.5 Hyperlipidemia, unspecified; G89.4 Chronic pain syndrome; D50.9 Iron deficiency anemia, unspecified; M10.9 Gout, unspecified; L40.9 Psoriasis, unspecified; G47.00 Insomnia, unspecified; N18.32 Chronic kidney disease, stage 3b; R79.1 Abnormal coagulation profile; J43.9 Emphysema, unspecified; I42.0 Dilated cardiomyopathy; Y83.8 Other surgical procedures as the cause of abnormal reaction of the patient, or of later complication, without mention of misadventure at the time of the procedure; I77.810 Thoracic aortic ectasia; F17.210 Nicotine dependence, cigarettes, uncomplicated; R00.1 Bradycardia, unspecified; T50.2X5A Adverse effect of carbonic-anhydrase inhibitors, benzothiadiazides and other diuretics, initial encounter; E83.42 Hypomagnesemia; Z88.0 Allergy status to penicillin; Z95.820 Peripheral vascular angioplasty status with implants and grafts; Z88.8 Allergy status to other drugs, medicaments and biological substances; Z91.040 Latex allergy status; Z98.1 Arthrodesis status; Z79.891 Long term (current) use of opiate analgesic
CPT/HCPCS: 36415; 71045; 76705; 76937; 78580; 80048; 80053; 80069; 82607; 82728; 82746; 82947; 83540; 83550; 83605; 83735; 83880; 84145; 84484; 85025; 85027; 85045; 85379; 87637; 93005; 93010; 93306; 93456; 93970; 94640; 94664; 94760; 97116; 97161; 97530; 99152; 99285-25; A9270; A9540; C1769; C1887; C1894; G0378; J1644; J1938; J2250; J2916; J3010; J3475; J7030; J7050; J7512; Q9967

== ENCOUNTER 2024-12-16 11:57 | Emergency (ER) | payer MEDICARE ==
[~2024-12-16] VITALS: Ht 170.2 cm; Wt 59.0 kg
[~2024-12-16 11:57] MED LIST changes: +CALC.25 PO; +CALCIUM 600 +1 EA11 PO; +CLOB.05TO TOP; +DOCU100 PO; +ELIQUIS2.5 MG PO; +FERSU300 PO; +JARDIANCE10 MG PO; +LOSA50 PO; +MIRALAX17 GM PO; +PANT20 PO; +PROLIA60 MG/1 ML SC; +VITAMIN C125 MG PO; +VITAMIN D31000 UNI1 PO
[2024-12-16] MEDS ORDERED: PREG150 PO (12:30)
[2024-12-16 12:46] LABS: BASOPHILS ABSOLUTE AUTO 0.05 K/mm3 (0.00-0.23); BASOPHILS PERCENT AUTO 1 % (0-2); EOSINOPHILS ABSOLUTE AUTO 0.20 K/mm3 (0.00-0.68); EOSINOPHILS PERCENT AUTO 2 % (0-6); Hematocrit 34.4 % (37.0-53.0); Hemoglobin 10.3 g/dL (13.5-17.5); IMMATURE GRAN ABSOLUTE AUTO 0.04 K/mm3 (0.00-0.10); IMMATURE GRAN PERCENT AUTO 0 % (0-1); LYMPHOCYTES ABSOLUTE AUTO 0.81 K/mm3 (0.84-5.20); LYMPHOCYTES PERCENT AUTO 9 % (21-46); MONOCYTES ABSOLUTE AUTO 0.57 K/mm3 (0.16-1.47); MONOCYTES PERCENT AUTO 6 % (4-13); Mean Corpuscular HGB Conc 29.9 g/dL (31.5-36.5); Mean Corpuscular Volume 92 fL (80-100); NEUTROPHILS ABSOLUTE AUTO 7.50 K/mm3 (1.96-9.15); NEUTROPHILS PERCENT AUTO 82 % (41-73); NRBC ABSOLUTE 0.00 K/mm3 (0.00-0.02); NRBC Auto 0.0 /100 WBC (0.0-0.2); Platelet Count 106 K/mm3 (150-400); RDW Coefficient Variation 14.6 % (11.7-14.2); RDW Standard Deviation 48.6 fL (35.1-46.3)
[2024-12-16] MEDS ORDERED: Ipratropium/Albuterol SulF 2.5-0.5MG/3 ML Amp INH ONE (12:50)
[2024-12-16 13:06] LABS: Alanine Aminotransfer (ALT/SGP 17.0 U/L (12-78); Albumin, Blood 2.8 g/dL (3.4-5.0); Albumin/Globulin Ratio 0.7 (0.8-1.8); Anion Gap 8.0 mmol/L (3-11); Aspartate Aminotrans (AST/SGOT 16.0 U/L (12-37); Bilirubin, Total 0.4 mg/dL (0.1-1.0); Blood Urea Nitrogen 38.0 mg/dL (8-24); CO2, Blood 22.0 mmol/L (21-32); Calcium, Blood 8.6 mg/dL (8.5-10.1); Chloride, Blood 111.0 mmol/L (98-108); Creatinine, Blood 2.33 mg/dL (0.60-1.20); Globulin, Blood 4.3 g/dL (2.2-4.0); Glucose, Blood 125.0 mg/dL (70-99); Potassium, Blood 4.8 mmol/L (3.5-5.5); Sodium, Blood 136.0 mmol/L (136-145); Total Protein, Blood 7.1 g/dL (6.4-8.2)
[2024-12-16] MEDS ORDERED: Albuterol 2.5 MG/3 ML VIAL INH SCH (13:35)
[2024-12-16 15:15] VITALS: BP 147/64
== END 2024-12-16 15:35 | disposition home or self-care (01) ==
LOC: ER 11:57
PROVIDERS: Student in an Organized Health Care Education/Training Program
DX: J44.1 Chronic obstructive pulmonary disease with (acute) exacerbation (principal); R07.2 Precordial pain; I13.2 Hypertensive heart and chronic kidney disease with heart failure and with stage 5 chronic kidney disease, or end stage renal disease; I50.20 Unspecified systolic (congestive) heart failure; N18.6 End stage renal disease; I25.10 Atherosclerotic heart disease of native coronary artery without angina pectoris; I73.9 Peripheral vascular disease, unspecified; F17.210 Nicotine dependence, cigarettes, uncomplicated; Z99.2 Dependence on renal dialysis; Z88.0 Allergy status to penicillin; Z88.8 Allergy status to other drugs, medicaments and biological substances; Z91.040 Latex allergy status; Z91.048 Other nonmedicinal substance allergy status; Z79.01 Long term (current) use of anticoagulants; Z79.84 Long term (current) use of oral hypoglycemic drugs; Z79.899 Other long term (current) drug therapy
CPT/HCPCS: 71046; 80053; 83690; 84484; 85025; 93005; 93010; 96374; 99285-25; A9270; J2919

== ENCOUNTER → 2024-12-24 | Outpatient (CLI) | payer MEDICARE | LOC: LAB SHORT 13:10 → LAB 13:10 | DX: J44.9 Chronic obstructive pulmonary disease, unspecified (principal) | CPT/HCPCS: 87070; 87077; 87186; 87205 ==